=== PATIENT | male | born 1935 | race Caucasian/White ===

== ENCOUNTER 2017-10-23 14:07 | Observation (INO) | payer MEDICARE, SELFPAY ==
[2017-10-23] VITALS (9 sets, daily range): BP systolic 138–168; BP diastolic 71–85; PULSE 53–66; RESP 13–18; TEMP 35.9–36.6; O2SAT 94–96; BMI 28.6; BMI 28.7; BMI 28.1
--- NOTE | 2017-10-23 14:13 | NURSING ---
NO OLD EKGS
--- NOTE | 2017-10-23 15:01 | NURSING ---
NO LW OR POA
--- NOTE | 2017-10-23 15:11 | EKG12_ITS ---
Test Reason : CP Blood Pressure : / mmHG Vent. Rate : 060 BPM Atrial Rate : 060 BPM P-R Int : 194 ms QRS Dur : 098 ms QT Int : 434 ms P-R-T Axes : 019 016 050 degrees QTc Int : 434 ms Normal sinus rhythm Inferior infarct , age undetermined Abnormal ECG Confirmed by RADHA MORILLO MD ([id number]), photographic editor ISMAEL GUEVARA ([id number]) on 10/25/2017 11:45:34 AM Referred By: SAI
--- NOTE | 2017-10-23 15:11 | RAD_ITS ---
STUDY: X-RAY CHEST REASON FOR EXAM: Male, 81 years old. Chest pain and left arm pain. TECHNIQUE: PA and lateral views of the chest. COMPARISON: None. FINDINGS: EKG electrodes are seen. Mild increased markings at the left lung base with blunting of the left costophrenic angle. Mild increased markings at the right lung base as well suggestive of either atelectasis and/or scarring. Sternal cerclage wires and vascular clips are present from a prior sternotomy and coronary artery bypass graft procedure (CABG). Normal mediastinum and cristo. Normal visualized pulmonary arteries. There is atherosclerotic tortuosity of the aortic arch and descending thoracic aorta. There are diffuse degenerative changes of the visualized thoracic spine. Normal visualized ribs, clavicles, and shoulders. Calcified gallstones. RAD/Chest PA and Lateral IMPRESSION: Status post CABG. Increased markings at the lung bases slightly worse on the left side with blunting of the left costophrenic angle. This may represent changes secondary to scarring or basilar atelectasis. Electronically Signed: Parish Haddad MD at 15:58 EDT Tel [phone], Service support ,
[2017-10-23 15:31] LABS: Absolute Lymphocyte Count 2.03 X10^3/ul (0.83-4.51); Absolute Neutrophil Count 3.6 X10^3/uL (2.0-7.7); Basophil# 0.03 X10^3/uL; Basophil% 0.5 % (0-1); Eosinophil# 0.24 X10^3/uL; Eosinophils% 3.7 % (0-5); Hematocrit 41.6 % (40-54); Hemoglobin 13.8 g/dl (13.0-16.5); Lymphocyte # 2.03 X10^3/ul (4.0); Mean Corp Hgb Conc 33.2 g/gl (32-36); Mean Corpuscular Hgb 30.9 pg (27.0-32.0); Mean Corpuscular Volume 93.3 fL (80-94); Mean Platelet Vol. 9.6 fl (6.2-12.0); Monocyte# 0.61 X10^3/uL; Monocyte% 9.3 % (0-10); Neutrophil # 3.63 X10^3/uL (2.7-7.7); Neutrophil % 55.3 % (47-70); Platelet Count 172 K/mm3 (150-450); RBC Distribution Width CV 12.9 % (11.6-14.6); RBC Distribution Width SD 43.1 fl (35.1-43.9); Red Blood Count 4.46 M/mm3 (4.6-6.2); White Blood Count 6.6 K/mm3 (4.4-11.0)
[2017-10-23 15:41] LABS: POSITIVE COUNT NO; POSITIVE DIFFERENTIAL NO; POSITIVE MORPHOLOGY NO
[2017-10-23 15:51] LABS: Anion Gap 5 (5-15); BUN 18 mg/dL (7-18); BUN/Creat Ratio 15.7 RATIO (10-20); Calcium,Total 8.5 mg/dL (8.5-10.1); Chloride 106 mmol/L (98-107); Creatinine, Serum 1.15 mg/dL (0.70-1.30); EST Glomerular Filtration Rate 65 mL/min (>60); Est Glom Filt Rate - Afr Amer 78 mL/min (>60); Glucose 86 mg/dL (74-106); Potassium 4.7 mmol/L (3.5-5.1); Sodium Level 141 mmol/L (136-145)
--- NOTE | 2017-10-23 16:24 | NURSING ---
DR CEJA FOR ER
--- NOTE | 2017-10-23 17:06 | ED.DCSUM_ITS ---
- ER Visit Summary Date of Service: 10/23/17 Chief Complaint: Chest pain History of Present Illness: The patient is a 81 M with a history of coronary artery disease and prior CABG who presents with chest pain. He states began about 2 hours prior to presentation and was a constant substernal pain which she rated a 6 out of 10. He did feel short of breath with this. He was given aspirin and nitroglycerin by EMS with resolution of symptoms and currently has no complaints. Physical Examination: Afebrile vitals are stable Moist mucous membranes Heart regular rate and rhythm Lungs are clear Abdomen soft 2+ radial pulses Extremities are nontender Test Results: EKG shows sinus rhythm at a rate of 60. CBC BMP unremarkable and troponin negative. Chest x-ray shows postsurgical changes and some scarring versus atelectasis but no acute process. Emergency Department Course and Treatment: Patient has remained pain-free here. However given his history of known coronary artery disease with resolution of symptoms with nitroglycerin I do feel he needs a rule out with repeat enzymes and possibly further testing such as stress testing. Patient admitted to the hospitalist service. Treatment Plan: [] Disposition: Admit Impression: Chest pain This note was generated with [employer] dictation software. It may contain incorrect words, spelling, and punctuation that were not noted in review of the chart prior to signing ED Disposition - Plan for ED Patient: Chief Complaint: Chest Pain Referrals: Nieves Lancaster MD [Primary Care Provider] -
--- NOTE | 2017-10-23 17:52 | PCM.HP.STD ---
Problem List (1) Chest pain Status: Acute (2) Seborrheic keratoses Status: Chronic (3) HTN (hypertension) Status: Chronic Qualifiers: Hypertension type: essential hypertension Qualified Code(s): I10 - Essential (primary) hypertension (4) CAD (coronary artery disease) Status: Chronic Qualifiers: Coronary Disease-Associated Artery/Lesion type: bypass graft [place] vs. transplanted heart: [place] heart Associated angina: angina presence unspecified Qualified Code(s): I25.810 - Atherosclerosis of coronary artery bypass graft(s) without angina pectoris (5) Dementia Status: Chronic Qualifiers: Dementia type: unspecified type Dementia behavioral disturbance: without behavioral disturbance Qualified Code(s): F03.90 - Unspecified dementia without behavioral disturbance (6) H/O paroxysmal supraventricular tachycardia Status: Chronic (7) Diverticulosis Status: Chronic Qualifiers: Diverticulosis site: diverticulosis of large intestine (8) Hypercholesterolemia Status: Chronic History of Present Illness Date of Admission: 10/23/17 Chief Complaint: chest pain The patient is a 81 year old M who is in normal state of health up until today where he had left-sided chest pain. The chest pain was similar to when he has had a heart attack in the past. Patient states that the chest pain did not radiate and denies any other symptoms of was reported the patient was short of breath during this time. Patient stated that the symptoms lasted about an hour. He is currently chest pain-free at this time. [] Past Medical History Past Medical History (Chronic Problems): Chronic Problems Seborrheic keratoses (Chronic) HTN (hypertension) (Chronic) CAD (coronary artery disease) (Chronic) Dementia (Chronic) H/O paroxysmal supraventricular tachycardia (Chronic) Diverticulosis (Chronic) Hypercholesterolemia (Chronic) Allergies No Known Allergies Allergy (Verified 10/23/17 14:40) Home Medications: Ambulatory Orders Medication Instructions Recorded Acetaminophen [Tylenol] 325 mg PO Q8H PRN 10/23/17 Amlodipine [Norvasc] 5 mg PO DAILY 10/23/17 Ascorbic Acid [Vitamin C] 500 mg PO DAILY 10/23/17 Aspirin 325 mg PO DAILY 10/23/17 Atenolol 50 mg PO DAILY 10/23/17 Atorvastatin Calcium 20 mg PO QHS 10/23/17 Cholecalciferol (Vitamin D3) 2,000 unit PO DAILY 10/23/17 [Vitamin D3] Citalopram [Celexa] 10 mg PO DAILY 10/23/17 Clopidogrel Bisulfate [Plavix] 75 mg PO DAILY 10/23/17 Donepezil HCl 10 mg PO DAILY 10/23/17 Isosorbide Mononitrate [Isosorbide 60 mg PO BID 10/23/17 Mononitrate ER] Multivitamins,Ther W-Minerals 1 tablet PO DAILY 10/23/17 [Multivitamin With Minerals] Psyllium [Metamucil] 1 packet PO DAILY 10/23/17 Surgical History: coronary bypass surgery, - - 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 Lives: Alone Smoking Status: Former smoker Tobacco Use: Cigarettes - *Family History Maternal History Items: No pertinent history, - Review of Systems Constitutional: Denies: Anorexia, Chills, Fever Eyes: Denies: Blurred vision, Double vision HEENT: Denies: Head Aches, Sinus Congestion, Sinus Drainage Cardiovascular: Denies: Chest Pain, Palpitations Respiratory: Denies: Cough, Shortness of breath at rest, Sputum production Gastrointestinal: Denies: Abdominal Pain, Nausea, Vomiting Genitourinary: Denies: Dysuria Musculoskeletal: Denies: Joint Pain, Joint Tenderness Skin: Denies: Rash, Wounds Neurological: Denies: Numbness, Tingling, Focal weakness Psychiatric: Denies: Anxiety, Depression, Homicidal Ideations, Suicidal Ideations Hematologic/ Lymphatic: Denies: Easy Bruising, Easy Bleeding VTE Information - Inpt Only VTE Present on Admission: No VTE Pharm Prophylaxis ordered?: Yes Patient Problems: Active and Suspected Problems Chest pain (Acute) - Physical Exam General: Alert, Cooperative, No apparent distress HEENT: Atraumatic, Normocephalic Neck: No Nodes, Thyroid Normal Size and Texture Lungs: Clear to auscultation, Normal air movement, No rhonchi, No wheeze Cardiovascular: Regular rate, Regular Rhythm, Normal S1, Normal S2, No murmurs Abdomen: Bowel Sounds Present, Soft, Non Tender, Non-Distended, No Hepato-splenomegaly Extremities: No clubbing, No cyanosis, No edema Skin: No rashes, No breakdown Psych/Mental Status: Normal Affect, Appropriate Vital Signs Temp Pulse Resp BP Pulse Ox 36.6 C 56 L 15 138/75 H 95 10/23/17 14:08 10/23/17 16:28 10/23/17 16:28 10/23/17 16:28 10/23/17 16:28 Oxygen Delivery Method Room Air Weight: 83.007 kg Body Mass Index (BMI) 28.6 Laboratory Tests Past 24 Hrs 10/23/17 10/23/17 14:20 14:20 WBC 6.6 RBC 4.46 L Hgb 13.8 Hct 41.6 MCV 93.3 MCH 30.9 MCHC 33.2 RDW 12.9 RDW Differential 43.1 Plt Count 172 MPV 9.6 Immature Gran % (Auto) 0.200 Neut % (Auto) 55.3 Lymph % (Auto) 31.0 [place] % (Auto) 9.3 Eos % (Auto) 3.7 Baso % (Auto) 0.5 Absolute Neuts (auto) 3.6 Absolute Lymphs (auto) 2.03 Total Counted Not Reportable Sodium 141 Potassium 4.7 Chloride 106 Carbon Dioxide 30.0 Anion Gap 5 BUN 18 Creatinine 1.15 Estim Creat Clear Calc 46.30 Est GFR (MDRD) Af Amer 78 Est GFR (MDRD) Non-Af 65 BUN/Creatinine Ratio 15.7 Glucose 86 Calcium 8.5 Troponin I < 0.02 Assessment/Plan Active and Suspected Problems Chest pain (Acute) 1. Chest pain Rule out cardiac with a stress test. Cycle troponins. Patient has been under stress lately as his patient's had a stroke 6 months ago and is now a phasic. 2. CAD Continue with medications 3. DVT prophylaxis with Lovenox 4. CODE STATUS reviewed and patient is full CODE STATUS. The patient's son at bedside. Code Visit OBSV E&M: 87169 Initial observation care L2
--- NOTE | 2017-10-23 17:54 | NURSING ---
106 OBS CP MARCIAL
--- NOTE | 2017-10-23 17:58 | HP.PCM_ITS ---
Problem List (1) Chest pain Status: Acute (2) Seborrheic keratoses Status: Chronic (3) HTN (hypertension) Status: Chronic Qualifiers: Hypertension type: essential hypertension Qualified Code(s): I10 - Essential (primary) hypertension (4) CAD (coronary artery disease) Status: Chronic Qualifiers: Coronary Disease-Associated Artery/Lesion type: bypass graft [place] vs. transplanted heart: [place] heart Associated angina: angina presence unspecified Qualified Code(s): I25.810 - Atherosclerosis of coronary artery bypass graft(s) without angina pectoris (5) Dementia Status: Chronic Qualifiers: Dementia type: unspecified type Dementia behavioral disturbance: without behavioral disturbance Qualified Code(s): F03.90 - Unspecified dementia without behavioral disturbance (6) H/O paroxysmal supraventricular tachycardia Status: Chronic (7) Diverticulosis Status: Chronic Qualifiers: Diverticulosis site: diverticulosis of large intestine (8) Hypercholesterolemia Status: Chronic History of Present Illness Date of Admission: 10/23/17 Chief Complaint: chest pain The patient is a 81 year old M who is in normal state of health up until today where he had left-sided chest pain. The chest pain was similar to when he has had a heart attack in the past. Patient states that the chest pain did not radiate and denies any other symptoms of was reported the patient was short of breath during this time. Patient stated that the symptoms lasted about an hour. He is currently chest pain-free at this time. [] Past Medical History Past Medical History (Chronic Problems): Chronic Problems Seborrheic keratoses (Chronic) HTN (hypertension) (Chronic) CAD (coronary artery disease) (Chronic) Dementia (Chronic) H/O paroxysmal supraventricular tachycardia (Chronic) Diverticulosis (Chronic) Hypercholesterolemia (Chronic) Allergies No Known Allergies Allergy (Verified 10/23/17 14:40) Home Medications: Ambulatory Orders Medication Instructions Recorded Acetaminophen [Tylenol] 325 mg PO Q8H PRN 10/23/17 Amlodipine [Norvasc] 5 mg PO DAILY 10/23/17 Ascorbic Acid [Vitamin C] 500 mg PO DAILY 10/23/17 Aspirin 325 mg PO DAILY 10/23/17 Atenolol 50 mg PO DAILY 10/23/17 Atorvastatin Calcium 20 mg PO QHS 10/23/17 Cholecalciferol (Vitamin D3) 2,000 unit PO DAILY 10/23/17 [Vitamin D3] Citalopram [Celexa] 10 mg PO DAILY 10/23/17 Clopidogrel Bisulfate [Plavix] 75 mg PO DAILY 10/23/17 Donepezil HCl 10 mg PO DAILY 10/23/17 Isosorbide Mononitrate [Isosorbide 60 mg PO BID 10/23/17 Mononitrate ER] Multivitamins,Ther W-Minerals 1 tablet PO DAILY 10/23/17 [Multivitamin With Minerals] Psyllium [Metamucil] 1 packet PO DAILY 10/23/17 Surgical History: coronary bypass surgery, - - 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 Lives: Alone Smoking Status: Former smoker Tobacco Use: Cigarettes - *Family History Maternal History Items: No pertinent history, - Review of Systems Constitutional: Denies: Anorexia, Chills, Fever Eyes: Denies: Blurred vision, Double vision HEENT: Denies: Head Aches, Sinus Congestion, Sinus Drainage Cardiovascular: Denies: Chest Pain, Palpitations Respiratory: Denies: Cough, Shortness of breath at rest, Sputum production Gastrointestinal: Denies: Abdominal Pain, Nausea, Vomiting Genitourinary: Denies: Dysuria Musculoskeletal: Denies: Joint Pain, Joint Tenderness Skin: Denies: Rash, Wounds Neurological: Denies: Numbness, Tingling, Focal weakness Psychiatric: Denies: Anxiety, Depression, Homicidal Ideations, Suicidal Ideations Hematologic/ Lymphatic: Denies: Easy Bruising, Easy Bleeding VTE Information - Inpt Only VTE Present on Admission: No VTE Pharm Prophylaxis ordered?: Yes Patient Problems: Active and Suspected Problems Chest pain (Acute) - Physical Exam General: Alert, Cooperative, No apparent distress HEENT: Atraumatic, Normocephalic Neck: No Nodes, Thyroid Normal Size and Texture Lungs: Clear to auscultation, Normal air movement, No rhonchi, No wheeze Cardiovascular: Regular rate, Regular Rhythm, Normal S1, Normal S2, No murmurs Abdomen: Bowel Sounds Present, Soft, Non Tender, Non-Distended, No Hepato- splenomegaly Extremities: No clubbing, No cyanosis, No edema Skin: No rashes, No breakdown Psych/Mental Status: Normal Affect, Appropriate Vital Signs Temp Pulse Resp BP Pulse Ox 36.6 C 56 L 15 138/75 H 95 10/23/17 14:08 10/23/17 16:28 10/23/17 16:28 10/23/17 16:28 10/23/17 16:28 Oxygen Delivery Method Room Air Weight: 83.007 kg Body Mass Index (BMI) 28.6 Laboratory Tests Past 24 Hrs 10/23/17 10/23/17 14:20 14:20 WBC 6.6 RBC 4.46 L Hgb 13.8 Hct 41.6 MCV 93.3 MCH 30.9 MCHC 33.2 RDW 12.9 RDW Differential 43.1 Plt Count 172 MPV 9.6 Immature Gran % (Auto) 0.200 Neut % (Auto) 55.3 Lymph % (Auto) 31.0 [place] % (Auto) 9.3 Eos % (Auto) 3.7 Baso % (Auto) 0.5 Absolute Neuts (auto) 3.6 Absolute Lymphs (auto) 2.03 Total Counted Not Reportable Sodium 141 Potassium 4.7 Chloride 106 Carbon Dioxide 30.0 Anion Gap 5 BUN 18 Creatinine 1.15 Estim Creat Clear Calc 46.30 Est GFR (MDRD) Af Amer 78 Est GFR (MDRD) Non-Af 65 BUN/Creatinine Ratio 15.7 Glucose 86 Calcium 8.5 Troponin I < 0.02 Assessment/Plan Active and Suspected Problems Chest pain (Acute) 1. Chest pain * Rule out cardiac with a stress test. Cycle troponins. * Patient has been under stress lately as his patient's had a stroke 6 months ago and is now a phasic. 2. CAD * Continue with medications 3. DVT prophylaxis with Lovenox 4. CODE STATUS reviewed and patient is full CODE STATUS. The patient's son at bedside. Code Visit OBSV E&M: 11259 Initial observation care L2
[2017-10-23] MEDS: Isosorbide Mononitrate 60 MG Tablet PO (21:24)
[2017-10-23] MEDS: Atorvastatin Calcium 20 MG Tablet PO (21:24)
[2017-10-24] VITALS (14 sets, daily range): BP systolic 114–142; BP diastolic 59–75; PULSE 51–62; RESP 16–18; TEMP 35.7–36.5; O2SAT 94–98
[2017-10-24] MEDS: Clopidogrel Bisulfate 75 MG Tablet PO (05:38)
[2017-10-24] MEDS: Aspirin 325 MG Tablet PO (05:40)
[2017-10-24 05:46] LABS: Absolute Lymphocyte Count 1.73 X10^3/ul (0.83-4.51); Absolute Neutrophil Count 2.9 X10^3/uL (2.0-7.7); Basophil# 0.03 X10^3/uL; Basophil% 0.5 % (0-1); Eosinophil# 0.33 X10^3/uL; Eosinophils% 5.9 % (0-5); Hematocrit 40.8 % (40-54); Hemoglobin 13.4 g/dl (13.0-16.5); Lymphocyte # 1.73 X10^3/ul (4.0); Lymphocyte % 30.9 % (19-41); Mean Corp Hgb Conc 32.8 g/gl (32-36); Mean Corpuscular Hgb 30.5 pg (27.0-32.0); Mean Corpuscular Volume 92.7 fL (80-94); Mean Platelet Vol. 9.3 fl (6.2-12.0); Monocyte# 0.57 X10^3/uL; Monocyte% 10.2 % (0-10); Neutrophil # 2.93 X10^3/uL (2.7-7.7); Neutrophil % 52.5 % (47-70); Platelet Count 173 K/mm3 (150-450); RBC Distribution Width CV 12.8 % (11.6-14.6); RBC Distribution Width SD 42.9 fl (35.1-43.9); White Blood Count 5.6 K/mm3 (4.4-11.0)
--- NOTE | 2017-10-24 05:55 | EKG12_ITS ---
Test Reason : AM EKG Blood Pressure : / mmHG Vent. Rate : 061 BPM Atrial Rate : 061 BPM P-R Int : 194 ms QRS Dur : 098 ms QT Int : 436 ms P-R-T Axes : 026 027 044 degrees QTc Int : 438 ms Normal sinus rhythm Normal ECG When compared with ECG of 23-OCT-2017 14:06, MANUAL COMPARISON REQUIRED, DATA IS UNCONFIRMED Confirmed by YISEL CORONADO, RADHA ([id number]), dictionary editor ISMAEL GUEVARA ([id number]) on 10/25/2017 12:44:17 PM Referred By: MARCIAL Confirmed By:RADHA MORILLO MD
[2017-10-24 05:56] LABS: Anion Gap 7 (5-15); BUN 18 mg/dL (7-18); BUN/Creat Ratio 19.5 RATIO (10-20); Calcium,Total 8.5 mg/dL (8.5-10.1); Chloride 106 mmol/L (98-107); Creatinine, Serum 0.92 mg/dL (0.70-1.30); EST Glomerular Filtration Rate 83 mL/min (>60); Est Glom Filt Rate - Afr Amer 101 mL/min (>60); Estimated Creatinine Clearance 57.88 ml/min; Glucose 85 mg/dL (74-106); Sodium Level 142 mmol/L (136-145)
[2017-10-24 06:20] LABS: POSITIVE COUNT NO; POSITIVE DIFFERENTIAL NO; POSITIVE MORPHOLOGY NO
[2017-10-24 06:35] LABS: International Normalized Ratio 1.1; Prothrombin Time (Protime)PT. 14.2 SECONDS (11.7-14.9)
[2017-10-24 06:40] LABS: Partial Thromboplast Time 29.4 Seconds (24.1-36.2)
--- NOTE | 2017-10-24 08:41 | CASEMGMT ---
PRASAD noted patient is from [facility]. Called [facility] and per Emma he is from [facility], their assisted living. PRASAD faxed updates to Kishore at [facility] letting him know if all is ok with stress test it is possible he will be d/c today. Starr MISHRA VP [employer]
[2017-10-24] MEDS: Citalopram 10 MG Tablet PO (09:06)
[2017-10-24] MEDS: Psyllium 1 PACKET PO (09:06)
[2017-10-24] MEDS: Multivitamins,Ther W-Minerals Tablet 1 TABLET PO (09:06)
[2017-10-24] MEDS: Isosorbide Mononitrate 60 MG Tablet PO (09:06)
[2017-10-24] MEDS: Donepezil HCl 10 MG Tablet PO (09:06)
[2017-10-24] MEDS: amLODIPine 5 MG Tablet PO (09:07)
[2017-10-24] MEDS: Atenolol 50 MG Tablet PO (09:07)
[2017-10-24] MEDS: Ascorbic Acid 500 MG Tablet PO (09:07)
--- NOTE | 2017-10-24 09:28 | STRESSREP_ITS ---
Stress Test Report Date: 10/24/2017 Procedure: Pharmacologic stress nuclear imaging study Indications: Chest pain; CAD; CABG Consent: Per the patient Procedure: The patient underwent pharmacologic (Regadenoson) evaluation with a peak heart rate of 95 beats per minute (68% predicted maximal heart rate) and a peak blood pressure of 128/70 mmHg. The baseline ECG demonstrated sinus bradycardia. The peak pharmacologic ECG demonstrated no obvious ECG changes. There were no cardiac dysrhythmias pretest, during pharmacologic infusion, or recovery. There was no complaint of chest discomfort during pharmacologic infusion or recovery. The examination was discontinued secondary to completion of protocol. Impression: 1. Pharmacologic (Regadenoson) evaluation 2. Peak pharmacologic ECG with no obvious ECG changes 3. Nuclear images pending Myocardial perfusion imaging study: Technique: The patient was injected with 11.5 millicuries of technetium 99m Cardiolite and subsequently rest SPECT Cardiolite nuclear imaging was obtained in the horizontal long, vertical long, and short axis views. The patient underwent pharmacologic (Regadenoson) evaluation with a peak heart rate of 95 beats per minute (68% percent predicted maximal heart rate) and a peak blood pressure of 128/70 mmHg. the patient was injected with 34.6 millicuries of technetium 99m Cardiolite and subsequently stress SPECT Cardiolite nuclear imaging was obtained in the horizontal long, vertical long, and short axis views. A gated Cardiolite study at peak stress was obtained. Interpretation: Rest and stress SPECT Cardiolite nuclear imaging status post realignment, normalization, and attenuation correction demonstrate an area of diminished myocardial perfusion/tracer uptake in portions of the basal lateral segments and status post stress in the mid inferolateral segments. There is end systolic thickening and brightening. The gated Cardiolite study demonstrates myocardial thickening and inward wall motion. The reported LVEF is 64%. Impression: 1. Rest and stress SPECT Cardiolite nuclear imaging demonstrated minutes myocardial perfusion/tracer uptake in portions of the basal segments and status post stress in the mid inferolateral segments appearing compatible with an area of previous myocardial injury/infarction involving the basal lateral segments and appearing compatible with an area of stress-induced myocardial ischemia involving the mid inferolateral segments. 2. The gated Cardiolite study reports an LVEF of 64%. This note was generated with [employer] software. It may contain incorrect words, spelling, and punctuation that were not noted in checking the note before signing.
--- NOTE | 2017-10-24 10:43 | PCM.PROGNOTE ---
<Chyna Javed - Last Filed: 10/24/17 10:53> Patient Problems: Active and Suspected Problems Chest pain (Acute) Subjective: Patient seen and examined. Denies further chest pain. Denies shortness of breath, dizziness, palpitations. Patient underwent nuclear stress test this morning which was abnormal. He denied chest pain during stress test. He states he has had CABG in the past, patient is not able to state how long ago this was. Previously followed with Dr. Mccormack. Patient denies other complaints. - Physical Exam General: Alert, Oriented x3, Cooperative, No apparent distress HEENT: Atraumatic, PERRLA, EOMI, Normocephalic Neck: Supple, No JVD, Negative Carotid Bruits Lungs: Clear to auscultation, Normal air movement Cardiovascular: Regular rate, Regular Rhythm, Normal S1, Normal S2, No murmurs Abdomen: Bowel Sounds Present, Soft, Non Tender, Non-Distended Extremities: No clubbing, No cyanosis, No edema, Capillary Refill Less than 3 Seconds Skin: No rashes, No breakdown Musculoskeletal: No Tenderness to Palpation of Joints or Extremities Neurological: Cranial nerves II-XII grossly intact, Neuro grossly intact Psych/Mental Status: Normal Affect, Appropriate Vital Signs Temp Pulse Resp BP Pulse Ox 96.5 F L 62 18 136/72 H 96 10/24/17 09:03 10/24/17 09:14 10/24/17 09:03 10/24/17 09:03 10/24/17 09:03 Oxygen Delivery Method Room Air Weight: 81.5 kg Body Mass Index (BMI) 28.1 Intake and Output for Last 24 Hours 10/22/17 10/23/17 10/24/17 23:59 23:59 23:59 Intake Total 120 / 120 0 / 0 Balance 120 / 120 0 / 0 Laboratory Tests Past 24 Hrs 10/23/17 10/23/17 10/24/17 18:56 21:20 00:22 WBC RBC Hgb Hct MCV MCH MCHC RDW RDW Differential Plt Count MPV Immature Gran % (Auto) Neut % (Auto) Lymph % (Auto) [place] % (Auto) Eos % (Auto) Baso % (Auto) Absolute Neuts (auto) Absolute Lymphs (auto) Total Counted PT INR APTT Sodium Potassium Chloride Carbon Dioxide Anion Gap BUN Creatinine Estim Creat Clear Calc Est GFR (MDRD) Af Amer Est GFR (MDRD) Non-Af BUN/Creatinine Ratio Glucose Calcium Troponin I < 0.02 < 0.02 < 0.02 10/24/17 10/24/17 10/24/17 05:20 05:20 05:20 WBC 5.6 RBC 4.40 L Hgb 13.4 Hct 40.8 MCV 92.7 MCH 30.5 MCHC 32.8 RDW 12.8 RDW Differential 42.9 Plt Count 173 MPV 9.3 Immature Gran % (Auto) 0.000 Neut % (Auto) 52.5 Lymph % (Auto) 30.9 Braxton % (Auto) 10.2 H Eos % (Auto) 5.9 H Baso % (Auto) 0.5 Absolute Neuts (auto) 2.9 Absolute Lymphs (auto) 1.73 Total Counted Not Reportable PT 14.2 INR 1.1 APTT 29.4 Sodium 142 Potassium 4.0 Chloride 106 Carbon Dioxide 29.0 Anion Gap 7 BUN 18 Creatinine 0.92 Estim Creat Clear Calc 57.88 Est GFR (MDRD) Af Amer 101 Est GFR (MDRD) Non-Af 83 BUN/Creatinine Ratio 19.5 Glucose 85 Calcium 8.5 Troponin I Medical Necessity - Tobacco Use Smoking Status: Former smoker Tobacco Use: Cigarettes Assessment/Plan Active and Suspected Problems Chest pain (Acute) 1. Chest pain-troponin negative ?4. Patient underwent nuclear stress test which demonstrated stress-induced ischemia involving the mid inferolateral segments. Cardiology consulted. Continue aspirin, statin, Plavix, isosorbide. 2. Hypertension-stable, continue home regimen of amlodipine, atenolol and isosorbide. 3. CAD-s/p CABG. Continue aspirin, statin, Plavix. 4. Hyperlipidemia-continue statin. 5. Mild cognitive impairment-continue donepezil. 6. Anxiety/depression-continue home Celexa regimen. DVT prophylaxis-Lovenox subcu. This patient was seen by JAYLA Ash under the supervision of Dr. Story. <Talat Story - Last Filed: 10/24/17 14:37> - Physical Exam Vital Signs Temp Pulse Resp BP Pulse Ox 96.5 F L 62 18 136/72 H 96 10/24/17 09:03 10/24/17 09:14 10/24/17 09:03 10/24/17 09:03 10/24/17 09:03 Oxygen Delivery Method Room Air Weight: 81.5 kg Body Mass Index (BMI) 28.1 Intake and Output for Last 24 Hours 10/22/17 10/23/17 10/24/17 23:59 23:59 23:59 Intake Total 120 / 120 180 / 180 Balance 120 / 120 180 / 180 Laboratory Tests Past 24 Hrs 10/23/17 10/23/17 10/24/17 18:56 21:20 00:22 WBC RBC Hgb Hct MCV MCH MCHC RDW RDW Differential Plt Count MPV Immature Gran % (Auto) Neut % (Auto) Lymph % (Auto) Braxton % (Auto) Eos % (Auto) Baso % (Auto) Absolute Neuts (auto) Absolute Lymphs (auto) Total Counted PT INR APTT Sodium Potassium Chloride Carbon Dioxide Anion Gap BUN Creatinine Estim Creat Clear Calc Est GFR (MDRD) Af Amer Est GFR (MDRD) Non-Af BUN/Creatinine Ratio Glucose Calcium Troponin I < 0.02 < 0.02 < 0.02 10/24/17 10/24/17 10/24/17 05:20 05:20 05:20 WBC 5.6 RBC 4.40 L Hgb 13.4 Hct 40.8 MCV 92.7 MCH 30.5 MCHC 32.8 RDW 12.8 RDW Differential 42.9 Plt Count 173 MPV 9.3 Immature Gran % (Auto) 0.000 Neut % (Auto) 52.5 Lymph % (Auto) 30.9 Braxton % (Auto) 10.2 H Eos % (Auto) 5.9 H Baso % (Auto) 0.5 Absolute Neuts (auto) 2.9 Absolute Lymphs (auto) 1.73 Total Counted Not Reportable PT 14.2 INR 1.1 APTT 29.4 Sodium 142 Potassium 4.0 Chloride 106 Carbon Dioxide 29.0 Anion Gap 7 BUN 18 Creatinine 0.92 Estim Creat Clear Calc 57.88 Est GFR (MDRD) Af Amer 101 Est GFR (MDRD) Non-Af 83 BUN/Creatinine Ratio 19.5 Glucose 85 Calcium 8.5 Troponin I Assessment/Plan This patient was seen in conjunction with JAYLA Ash. I have independently interviewed and examined the patient and reviewed pertinent historical, laboratory, and other data. Please refer to JAYLA Ash note for details of this patient's presentation, findings, and recommendations. I have reviewed JAYLA Ash note and concur with documented findings. In brief, Patient is a 81-year-old gentleman who has past medical history significant for CAD status post CABG presented with chest pain. Patient was placed in a monitored bed did rule out [place] with serial cardiac enzymes subsequently underwent a nuclear stress test which was positive for stress-induced ischemia cardiology subsequently consulted Physical Examination: GENERAL: Frail looking HEENT: Clear conjunctiva NECK; supple, normal thyroid, . CHEST: Diminished to auscultation bilaterally, HEART: Regular S1 S2, ABDOMEN: soft, normoactive bowel sounds, RECTAL: deferred FISHER PURSE SEINE: Awake, no lateralizing signs. SKIN: No rash Assessment: 1. Unstable angina: Presented with chest pain stress test came back positive cardiology consulted 2. CAD with previous CABG 3. Mild cognitive impairment 4. Depression with anxiety 5. Dyslipidemia 6. Essential hypertension 7. DVT prophylaxis-Lovenox Code Status: Full code Recommendations: 1. I have discussed the results of my overview and impressions with the patient 2. Options for management were reviewed Code Visit Inpatient E&M: 41094 Subs Hosp L3
--- NOTE | 2017-10-24 10:52 | PN_ITS ---
<Chyna Javed - Last Filed: 10/24/17 10:53> Patient Problems: Active and Suspected Problems Chest pain (Acute) Subjective: Patient seen and examined. Denies further chest pain. Denies shortness of breath, dizziness, palpitations. Patient underwent nuclear stress test this morning which was abnormal. He denied chest pain during stress test. He states he has had CABG in the past, patient is not able to state how long ago this was. Previously followed with Dr. Mccormack. Patient denies other complaints. - Physical Exam General: Alert, Oriented x3, Cooperative, No apparent distress HEENT: Atraumatic, PERRLA, EOMI, Normocephalic Neck: Supple, No JVD, Negative Carotid Bruits Lungs: Clear to auscultation, Normal air movement Cardiovascular: Regular rate, Regular Rhythm, Normal S1, Normal S2, No murmurs Abdomen: Bowel Sounds Present, Soft, Non Tender, Non-Distended Extremities: No clubbing, No cyanosis, No edema, Capillary Refill Less than 3 Seconds Skin: No rashes, No breakdown Musculoskeletal: No Tenderness to Palpation of Joints or Extremities Neurological: Cranial nerves II-XII grossly intact, Neuro grossly intact Psych/Mental Status: Normal Affect, Appropriate Vital Signs Temp Pulse Resp BP Pulse Ox 96.5 F L 62 18 136/72 H 96 10/24/17 09:03 10/24/17 09:14 10/24/17 09:03 10/24/17 09:03 10/24/17 09:03 Oxygen Delivery Method Room Air Weight: 81.5 kg Body Mass Index (BMI) 28.1 Intake and Output for Last 24 Hours 10/22/17 10/23/17 10/24/17 23:59 23:59 23:59 Intake Total 120 / 120 0 / 0 Balance 120 / 120 0 / 0 Laboratory Tests Past 24 Hrs 10/23/17 10/23/17 10/24/17 18:56 21:20 00:22 WBC RBC Hgb Hct MCV MCH MCHC RDW RDW Differential Plt Count MPV Immature Gran % (Auto) Neut % (Auto) Lymph % (Auto) [place] % (Auto) Eos % (Auto) Baso % (Auto) Absolute Neuts (auto) Absolute Lymphs (auto) Total Counted PT INR APTT Sodium Potassium Chloride Carbon Dioxide Anion Gap BUN Creatinine Estim Creat Clear Calc Est GFR (MDRD) Af Amer Est GFR (MDRD) Non-Af BUN/Creatinine Ratio Glucose Calcium Troponin I < 0.02 < 0.02 < 0.02 10/24/17 10/24/17 10/24/17 05:20 05:20 05:20 WBC 5.6 RBC 4.40 L Hgb 13.4 Hct 40.8 MCV 92.7 MCH 30.5 MCHC 32.8 RDW 12.8 RDW Differential 42.9 Plt Count 173 MPV 9.3 Immature Gran % (Auto) 0.000 Neut % (Auto) 52.5 Lymph % (Auto) 30.9 [place] % (Auto) 10.2 H Eos % (Auto) 5.9 H Baso % (Auto) 0.5 Absolute Neuts (auto) 2.9 Absolute Lymphs (auto) 1.73 Total Counted Not Reportable PT 14.2 INR 1.1 APTT 29.4 Sodium 142 Potassium 4.0 Chloride 106 Carbon Dioxide 29.0 Anion Gap 7 BUN 18 Creatinine 0.92 Estim Creat Clear Calc 57.88 Est GFR (MDRD) Af Amer 101 Est GFR (MDRD) Non-Af 83 BUN/Creatinine Ratio 19.5 Glucose 85 Calcium 8.5 Troponin I Medical Necessity - Tobacco Use Smoking Status: Former smoker Tobacco Use: Cigarettes Assessment/Plan Active and Suspected Problems Chest pain (Acute) 1. Chest pain-troponin negative ?4. Patient underwent nuclear stress test which demonstrated stress-induced ischemia involving the mid inferolateral segments. Cardiology consulted. Continue aspirin, statin, Plavix, isosorbide. 2. Hypertension-stable, continue home regimen of amlodipine, atenolol and isosorbide. 3. CAD-s/p CABG. Continue aspirin, statin, Plavix. 4. Hyperlipidemia-continue statin. 5. Mild cognitive impairment-continue donepezil. 6. Anxiety/depression-continue home Celexa regimen. DVT prophylaxis-Lovenox subcu. This patient was seen by JAYLA Ash under the supervision of Dr. Story. <Talat Story - Last Filed: 10/24/17 14:37> - Physical Exam Vital Signs Temp Pulse Resp BP Pulse Ox 96.5 F L 62 18 136/72 H 96 10/24/17 09:03 10/24/17 09:14 10/24/17 09:03 10/24/17 09:03 10/24/17 09:03 Oxygen Delivery Method Room Air Weight: 81.5 kg Body Mass Index (BMI) 28.1 Intake and Output for Last 24 Hours 10/22/17 10/23/17 10/24/17 23:59 23:59 23:59 Intake Total 120 / 120 180 / 180 Balance 120 / 120 180 / 180 Laboratory Tests Past 24 Hrs 10/23/17 10/23/17 10/24/17 18:56 21:20 00:22 WBC RBC Hgb Hct MCV MCH MCHC RDW RDW Differential Plt Count MPV Immature Gran % (Auto) Neut % (Auto) Lymph % (Auto) [place] % (Auto) Eos % (Auto) Baso % (Auto) Absolute Neuts (auto) Absolute Lymphs (auto) Total Counted PT INR APTT Sodium Potassium Chloride Carbon Dioxide Anion Gap BUN Creatinine Estim Creat Clear Calc Est GFR (MDRD) Af Amer Est GFR (MDRD) Non-Af BUN/Creatinine Ratio Glucose Calcium Troponin I < 0.02 < 0.02 < 0.02 10/24/17 10/24/17 10/24/17 05:20 05:20 05:20 WBC 5.6 RBC 4.40 L Hgb 13.4 Hct 40.8 MCV 92.7 MCH 30.5 MCHC 32.8 RDW 12.8 RDW Differential 42.9 Plt Count 173 MPV 9.3 Immature Gran % (Auto) 0.000 Neut % (Auto) 52.5 Lymph % (Auto) 30.9 [place] % (Auto) 10.2 H Eos % (Auto) 5.9 H Baso % (Auto) 0.5 Absolute Neuts (auto) 2.9 Absolute Lymphs (auto) 1.73 Total Counted Not Reportable PT 14.2 INR 1.1 APTT 29.4 Sodium 142 Potassium 4.0 Chloride 106 Carbon Dioxide 29.0 Anion Gap 7 BUN 18 Creatinine 0.92 Estim Creat Clear Calc 57.88 Est GFR (MDRD) Af Amer 101 Est GFR (MDRD) Non-Af 83 BUN/Creatinine Ratio 19.5 Glucose 85 Calcium 8.5 Troponin I Assessment/Plan This patient was seen in conjunction with JAYLA Ash. I have independently interviewed and examined the patient and reviewed pertinent historical, laboratory, and other data. Please refer to VICKY Ash note for details of this patient's presentation, findings, and recommendations. I have reviewed JAYLA Ash note and concur with documented findings. In brief, Patient is a 81-year-old gentleman who has past medical history significant for CAD status post CABG presented with chest pain. Patient was placed in a monitored bed did rule out [place] with serial cardiac enzymes subsequently underwent a nuclear stress test which was positive for stress- induced ischemia cardiology subsequently consulted Physical Examination: GENERAL: Frail looking HEENT: Clear conjunctiva NECK; supple, normal thyroid, . CHEST: Diminished to auscultation bilaterally, HEART: Regular S1 S2, ABDOMEN: soft, normoactive bowel sounds, RECTAL: deferred DRAMA PROFESSOR: Awake, no lateralizing signs. SKIN: No rash Assessment: 1. Unstable angina: Presented with chest pain stress test came back positive cardiology consulted 2. CAD with previous CABG 3. Mild cognitive impairment 4. Depression with anxiety 5. Dyslipidemia 6. Essential hypertension 7. DVT prophylaxis-Lovenox Code Status: Full code Recommendations: 1. I have discussed the results of my overview and impressions with the patient 2. Options for management were reviewed Code Visit Inpatient E&M: 16469 Subs Hosp L3
--- NOTE | 2017-10-24 11:43 | CON.PCM_ITS ---
Problem List (1) Chest pain Status: Acute Reason for Consult Date of Consultation: 10/24/17 History of Present Illness: The patient is a 81 year old M with past medical history significant for coronary artery disease status post percutaneous intervention many years ago. He also has history of hypertension and dyslipidemia. Hard of hearing. Patient presented to the hospital with complaints of left-sided dull chest discomfort that lasted about 10 minutes. The discomfort started spontaneously at rest. He describes some radiation to the left arm. No associated shortness of breath. No diaphoresis. He has had a stress test done in the hospital, atrial suspicion for inferolateral ischemia. Per patient's son, the patient has had about 5 or 6 such episodes over the last 1 year. Denies any angina with exertion. [] Past Medical History Allergies/Adverse Reactions: Allergies No Known Allergies Allergy (Verified 10/23/17 14:40) Home Medications: Ambulatory Orders Medication Instructions Recorded Acetaminophen [Tylenol] 325 mg PO Q8H PRN 10/23/17 Amlodipine [Norvasc] 5 mg PO DAILY 10/23/17 Ascorbic Acid [Vitamin C] 500 mg PO DAILY 10/23/17 Aspirin 325 mg PO DAILY 10/23/17 Atenolol 50 mg PO DAILY 10/23/17 Atorvastatin Calcium 20 mg PO QHS 10/23/17 Cholecalciferol (Vitamin D3) 2,000 unit PO DAILY 10/23/17 [Vitamin D3] Citalopram [Celexa] 10 mg PO DAILY 10/23/17 Clopidogrel Bisulfate [Plavix] 75 mg PO DAILY 10/23/17 Donepezil HCl 10 mg PO QHS 10/23/17 Isosorbide Mononitrate [Isosorbide 60 mg PO BID 10/23/17 Mononitrate ER] Multivitamins,Ther W-Minerals 1 tablet PO DAILY 10/23/17 [Multivitamin With Minerals] Psyllium [Metamucil] 1 packet PO DAILY 10/23/17 Past Medical History (Chronic Problems): Chronic Problems Seborrheic keratoses (Chronic) HTN (hypertension) (Chronic) CAD (coronary artery disease) (Chronic) Dementia (Chronic) H/O paroxysmal supraventricular tachycardia (Chronic) Diverticulosis (Chronic) Hypercholesterolemia (Chronic) Surgical History: coronary bypass surgery, - - 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 - *Family History Maternal History Items: No pertinent history, - Lives: Alone Smoking Status: Former smoker Tobacco Use: Cigarettes Review of Systems - Review of Systems General: Denies: Fever, Fatigue, Chills HEENT: Reports: Hearing Changes - Hard of hearing Cardiovascular: Reports: Chest Discomfort at Rest. Denies: Orthopnea, PND, Syncope Respiratory: Denies: Cough Gastrointestinal: Denies: Indigestion, Jaundice, Nausea, Emesis, Hematemesis, Melena Muscoloskeletal: Denies: Myalgias Neurological: Denies: History of TIA, History of CVA Objective: Vital Signs Temp Pulse Resp BP Pulse Ox 96.5 F L 62 18 136/72 H 96 10/24/17 09:03 10/24/17 09:14 10/24/17 09:03 10/24/17 09:03 10/24/17 09:03 Oxygen Delivery Method Room Air Weight: 81.5 kg Body Mass Index (BMI) 28.1 Intake and Output for Last 24 Hours 10/22/17 10/23/17 10/24/17 23:59 23:59 23:59 Intake Total 120 / 120 0 / 0 Balance 120 / 120 0 / 0 General: Healthy Appearing, Awake, Alert, Oriented x 3 HEENT: Atraumatic, Normocephalic Oral: Moist Mucosa Neck: Supple, No JVD Lungs: Clear to auscultation Cardiovascular: Regular Rhythm, Normal S1, Normal S2 Vascular: No Carotid Bruits Abdomen: Bowel Sounds Present, Soft Extremities: No edema Neurological: No Focal Motor or Sensory Deficit Psych/Mental Status: Appropriate 10/23/17 18:56: Troponin I < 0.02 10/23/17 21:20: Troponin I < 0.02 10/24/17 00:22: Troponin I < 0.02 10/24/17 05:20: WBC 5.6, RBC 4.40 L, Hgb 13.4, Hct 40.8, MCV 92.7, MCH 30.5, MCHC 32.8, RDW 12.8, RDW Differential 42.9, Plt Count 173, MPV 9.3, Immature Gran % (Auto) 0.000, Neut % (Auto) 52.5, Lymph % (Auto) 30.9, [place] % (Auto) 10.2 H, Eos % (Auto) 5.9 H, Baso % (Auto) 0.5, Absolute Neuts (auto) 2.9, Total Counted Not Reportable 10/24/17 05:20: PT 14.2, INR 1.1, APTT 29.4 10/24/17 05:20: Sodium 142, Potassium 4.0, Chloride 106, Carbon Dioxide 29.0, Anion Gap 7, BUN 18, Creatinine 0.92, Est GFR (MDRD) Af Amer 101, Est GFR (MDRD ) Non-Af 83, BUN/Creatinine Ratio 19.5, Glucose 85, Calcium 8.5 Rhythm: Normal sinus rhythm EKG: Normal sinus rhythm. No ischemic changes Assessment/Plan 1. Chest pain. Per patient, chest pain similar to his previous anginal episodes. Consider unstable angina. Stress test positive for inferolateral ischemia. Options discussed with patient. Medical management versus cardiac catheterization with possible revascularization was offered. Risks benefits explained. He understands these and wishes to proceed. Please note that the patient's son who is power of communicable disease specialist is also in agreement with the same. 2. History of CAD in the past. Continue present management for now. Further recommendations after cardiac catheterization 3. Dyslipidemia 4. Hypertension Further recommendations will follow results of cardiac catheterization
[2017-10-24] MEDS: 0.9% NaCl Peripheral Flush Adult/Peds IV (12:05)
--- NOTE | 2017-10-24 12:48 | CASEMGMT ---
If patient requires transfer to a tertiary care center he can go to [facility] [place] in [place], and [facility] in [place]. Starr MISHRA MSW
--- NOTE | 2017-10-24 13:55 | CASEMGMT ---
Addendum entered by Starr Emery 10/24/17 15:19: RN spoke with son and he will transport patient back to [place] when ready. PRASAD faxed d/c instructions to [facility]. Plan: d/c back to [facility]. Family will transport. Starr CLARKE Original Note: Addendum entered by Starr Emery 10/24/17 14:45: PRASAD called Kishore at [facility] back and let him know that patient likely will be d/c back today. PRASAD told him he has to be on bed rest for 2.5 hrs which started at 1420. Therefore he would not return until around or after dinner. Starr CLARKE Original Note: PRASAD received a voice mail from Kishore at [facility]. He was asking how patient's stress test went. PRASAD called him back and left him a voice mail letting him know that patient's stress test was abnormal and he is getting a heart cath. PRASAD told him will let him know more when PRASAD knows more. Starr CLARKE
--- NOTE | 2017-10-24 14:40 | CL.D_ITS ---
Patient Name: BUCK GORE Study Date: 10/24/2017 Performing: Maritza Kaur MD Ht: 67 inches 170 cm : 1935 Wt: 181 lbs 82 kg Age: 81 Gender: male BSA: 1.94 PROCEDURE(S) PERFORMED DT88-FHN/COR/CABG DC11-AO ROOT ANGIO WITH HEART CATH CLINICAL PROFILE AND INDICATIONS Heart Failure: None Stress/Imaging Stress Test w/SPECT MPI: Yes Result: Positive Intermediate RiskStress Test with SP ECT MPI: Positive Intermediate Risk CAD Presentations: Unstable angina. CONCLUSIONS 90% Prox LAD. GOODWIN to LAD patent 100% Mid LCX. SVG to OM 100%. OM2 filling via collaterals from the Ramus. Distal LCX filling via mick aterals from the RPLV 50-60% ostial Ramus. Stent to Prox Ramus patent Stents to Prox and distal RCA patent. SVG to RCA 100% RECOMMENDATIONS Medical therapy DESCRIPTION OF PROCEDURE The patient arrived to the procedure lab. The risks and benefits of the procedure as well as a full d escription of our services here and current unavailability of surgical backup were fully explained to the patient and/or their significant other prior to the catheterization. The Timeout was completed, verifying the correct patient and procedure. The patient's procedural site was prepped and draped in the usual fashion. Local anesthetic was given subcutaneously to right radial region with Lidocaine 2% . Using a modified Seldinger technique, arterial access was obtained via the right radial artery, a 5 Fr sheath was inserted. Left Coronary Artery selective angiography was performed in multiple views u sing a 5 Fr. 4.0 [place] catheter. Left Coronary Artery selective angiography was performed in multiple views using a 5 Fr. JL4 catheter. Right Coronary Artery selective angiography was then performed in multiple views using a 5 Fr. 3DRC (Adrián) catheter. Right Coronary Artery selective angiography wa s then performed in multiple views using a 5 Fr. JR 4 catheter. Left internal mammary artery graft to the LAD selective angiography was performed in multiple views using a 5 Fr. LCB catheter. Left inter nal mammary artery graft to the LAD selective angiography was performed in multiple views using a 4 F r. IM catheter. Saphenous Vein graft to the RCA selective angiography was performed in multiple views using a 5 Fr. AL 1 catheter. Ascending (root) aorta selective angiography was then performed in sing le view using pigtail cath. Ascending (root) aorta selective angiography was then performed in single view using pigtail cath.The arterial sheath was pulled and a TR Band was applied for hemostasis CORONARY ANGIOGRAPHY DOMINANCE: Right Dominant LEFT MAIN: Mild luminal irregularities LEFT ANTERIOR DECENDING ARTERY: PROX LAD: 80-90%. GOODWIN to LAD patent CIRCUMFLEX ARTERY: 100% Mid RAMUS: 60% ostial. Stent to Prox Ramus patent. Mid 50% RIGHT CORONARY ARTERY: Stents to RCA patent. Mid RCA 50% GRAFTS: GOODWIN graft to the LAD is patent Saphenous Vein graft to the 2nd OM is totally occluded Saphenous Vein graft to the RCA is totally occluded Saphenous Vein graft to the 1st Diagonal is totally occluded COLLATERAL FLOW: Collateral flow from Right to Left. OM filling via collaterals from the Right AORTIC ROOT: Angiographically normal. NO SVG filling noted COMPLICATIONS No Complications PROCEDURE MEDICATIONS Fentanyl 25 mcg IV Versed 1 mg IV Oxygen: 2 L/min via nasal cannula Heparin given IA 10/24/2017 13:27:02 Heparin 2000 unit(s) IV 10/24/2017 13:38:23 Verapamil 2.5mg, Ntg 100mcgs, 2000 units of Heparin given IA 10/24/2017 13:27:02 SUMMARY OF HEMODYNAMIC DATA Time AIR REST ECG 13:11:39 AO 121/11 (49) SA 13:30:33 LV 120/12, 23 13:30:48 Signed By Maritza Kaur MD On 10/24/2017 14:39:30 Maritza Kaur MD
--- NOTE | 2017-10-24 14:43 | PN_ITS ---
Progress Note Cardiac catheterization and coronary angiography performed. See cath report for details. Recommend continuing medical treatment. Recommend increasing amlodipine to 5 mg twice daily. May discharge home from cardiac standpoint after radial hemostasis secured. Follow-up with primary health safety specialist as outpatient within a week after discharge
--- NOTE | 2017-10-24 15:08 | PCM.DC ---
- Discharge Diagnoses Current Active Problems: Current Active and Chronic Problems Chest pain (Acute) Seborrheic keratoses (Chronic) HTN (hypertension) (Chronic) CAD (coronary artery disease) (Chronic) Dementia (Chronic) H/O paroxysmal supraventricular tachycardia (Chronic) Diverticulosis (Chronic) Hypercholesterolemia (Chronic) You will use the following diet at home:: Cardiac Discharge Activity: - - Follow post-op cath instructions. Call your doctor if you observe: Shortness of breath, Dizziness, Fainting spells, Chest pain, Increased palpitations (irregular heartbeat) Allergies/Adverse Reactions: Allergies No Known Allergies Allergy (Verified 10/23/17 14:40) Medications to take at Discharge Acetaminophen [Tylenol] 325 mg PO Q8H PRN 10/23/17 Amlodipine [Norvasc] 5 mg PO DAILY 10/23/17 Ascorbic Acid [Vitamin C] 500 mg PO DAILY 10/23/17 Aspirin 325 mg PO DAILY 10/23/17 Atenolol 50 mg PO DAILY 10/23/17 Atorvastatin Calcium 20 mg PO QHS 10/23/17 Cholecalciferol (Vitamin D3) [Vitamin D3] 2,000 unit PO DAILY 10/23/17 Citalopram [Celexa] 10 mg PO DAILY 10/23/17 Clopidogrel Bisulfate [Plavix] 75 mg PO DAILY 10/23/17 Donepezil HCl 10 mg PO QHS 10/23/17 Isosorbide Mononitrate [Isosorbide Mononitrate ER] 60 mg PO BID 10/23/17 Multivitamins,Ther W-Minerals [Multivitamin With Minerals] 1 tablet PO DAILY 10/23/17 Psyllium [Metamucil] 1 packet PO DAILY 10/23/17 Primary Care Physician: Nieves Lancaster MD [Primary Care Provider] - Please follow up with your Primary Care Physician in: 1 Week Please Follow Up With: Head Buyer Tobacco When: 1-2 Weeks Proposed Discharge Date: 10/24/17
--- NOTE | 2017-10-24 15:10 | PCM.DC.SUM ---
<Chyna Javed - Last Filed: 10/24/17 15:20> Discharge Date and Diagnosis Date of Admission: 10/23/17 Date of Discharge: 10/24/17 - Primary Discharge Diagnosis Active and Suspected Problems 1. Chest pain- ACS ruled out. - Secondary Discharge Diagnosis Chronic Problems Seborrheic keratoses (Chronic) HTN (hypertension) (Chronic) CAD (coronary artery disease) (Chronic) Dementia (Chronic) H/O paroxysmal supraventricular tachycardia (Chronic) Diverticulosis (Chronic) Hypercholesterolemia (Chronic) Hospital Course and Treatment Imaging Results: Diagnostic Data Chest X-Ray 10/23/17 15:11 IMPRESSION: Status post CABG. Increased markings at the lung bases slightly worse on the left side with blunting of the left costophrenic angle. This may represent changes secondary to scarring or basilar atelectasis. Electronically Signed: Parish Haddad MD at 15:58 EDT Tel [phone], Service support , Dr. Kaur- Cardiology Operations: None Procedures: Stress test Summary of Care Provided: Patient is an 81-year-old male admitted 10/23/17 due to chest pain. He has a past medical history of hypertension, CAD status post CABG, hyperlipidemia, mild cognitive impairment, anxiety, depression. 1. Chest pain-ACS ruled out. Troponin negative ?4. Patient underwent nuclear stress test which demonstrated stress-induced ischemia involving the mid inferolateral segments. Cardiology consulted. Patient further underwent cardiac catheterization which required no intervention. Recommended continued medical management. Continue aspirin, statin, Plavix, isosorbide. Follow-up with mortgage specialist in 1 week. 2. Hypertension-stable, continue home regimen of amlodipine, atenolol and isosorbide. 3. CAD-s/p CABG. Continue aspirin, statin, Plavix. 4. Hyperlipidemia-continue statin. 5. Mild cognitive impairment-continue donepezil. 6. Anxiety/depression-continue home Celexa regimen. General: Alert, Oriented x3, Cooperative, No apparent distress HEENT: Atraumatic, PERRLA, EOMI, Normocephalic Neck: Supple, No JVD, Negative Carotid Bruits Lungs: Clear to auscultation, Normal air movement Cardiovascular: Regular rate, Regular Rhythm, Normal S1, Normal S2, No murmurs Abdomen: Bowel Sounds Present, Soft, Non Tender, Non-Distended Extremities: No clubbing, No cyanosis, No edema, Capillary Refill Less than 3 Seconds Skin: No rashes, No breakdown Musculoskeletal: No Tenderness to Palpation of Joints or Extremities Neurological: Cranial nerves II-XII grossly intact, Neuro grossly intact Psych/Mental Status: Normal Affect, Appropriate Patient seen and examined prior to discharge. Physical assessment as noted above. Patient is stable for discharge to assisted living facility. This patient was seen by JAYLA Ash under the supervision of Dr. Story. Discharge Diet: Low fat/ Low Cholesterol Discharge Activity: - - Follow post-op cath instructions. Call your doctor if you observe: Shortness of breath, Dizziness, Fainting spells, Chest pain, Increased palpitations (irregular heartbeat) Home Medications: Medications to take at Discharge Acetaminophen [Tylenol] 325 mg PO Q8H PRN 10/23/17 Ascorbic Acid [Vitamin C] 500 mg PO DAILY 10/23/17 Aspirin 325 mg PO DAILY 10/23/17 Atenolol 50 mg PO DAILY 10/23/17 Atorvastatin Calcium 20 mg PO QHS 10/23/17 Cholecalciferol (Vitamin D3) [Vitamin D3] 2,000 unit PO DAILY 10/23/17 Citalopram [Celexa] 10 mg PO DAILY 10/23/17 Clopidogrel Bisulfate [Plavix] 75 mg PO DAILY 10/23/17 Donepezil HCl 10 mg PO QHS 10/23/17 Isosorbide Mononitrate [Isosorbide Mononitrate ER] 60 mg PO BID 10/23/17 Multivitamins,Ther W-Minerals [Multivitamin With Minerals] 1 tablet PO DAILY 10/23/17 Psyllium [Metamucil] 1 packet PO DAILY 10/23/17 Amlodipine [Norvasc] 5 mg PO BID #60 tab 10/24/17 Following Prescrptions Were Given to Patient: Amlodipine [Norvasc] 5 mg PO BID #60 tab Primary Care Physician: Nieves Lancaster MD [Primary Care Provider] - Please follow up with your Primary Care Physician in: 1 Week Please Follow Up With: Commercial Fishing Vessel Operator When: 1-2 Weeks Disposition: [facility]std Living/Non-Skill [facility] Minutes spent on discharge:: 35 Patient Condition:: Stable Medical Necessity - Tobacco Use Smoking Status: Former smoker Tobacco Use: Cigarettes Meaningful Use Info Meaningful Use Diagnoses (Choose all that apply): None applicable <Talat Story - Last Filed: 10/24/17 16:18> Discharge Date and Diagnosis - Secondary Discharge Diagnosis Chronic Problems Seborrheic keratoses (Chronic) HTN (hypertension) (Chronic) CAD (coronary artery disease) (Chronic) Dementia (Chronic) H/O paroxysmal supraventricular tachycardia (Chronic) Diverticulosis (Chronic) Hypercholesterolemia (Chronic) Hospital Course and Treatment Summary of Care Provided: In brief, Patient is a 81-year-old gentleman who has past medical history significant for CAD status post CABG presented with chest pain. Patient was placed in a monitored bed did rule out MT with serial cardiac enzymes subsequently underwent a nuclear stress test which was positive for stress-induced ischemia cardiology subsequently consulted and underwent left heart catheterization on 10/24/2017 which was negative for hemodynamically significant coronary artery disease. Patient was therefore discharged home with optimal medical treatment. Hospital course is as elicited above by Chyna Javed NP Meaningful Use Info Meaningful Use Diagnoses (Choose all that apply): None applicable Code Visit OBSV E&M: 45636 Observation care discharge
--- NOTE | 2017-10-24 15:17 | DS.PCM_ITS ---
<Chyna Javed - Last Filed: 10/24/17 15:20> Discharge Date and Diagnosis Date of Admission: 10/23/17 Date of Discharge: 10/24/17 - Primary Discharge Diagnosis Active and Suspected Problems 1. Chest pain- ACS ruled out. - Secondary Discharge Diagnosis Chronic Problems Seborrheic keratoses (Chronic) HTN (hypertension) (Chronic) CAD (coronary artery disease) (Chronic) Dementia (Chronic) H/O paroxysmal supraventricular tachycardia (Chronic) Diverticulosis (Chronic) Hypercholesterolemia (Chronic) Hospital Course and Treatment Imaging Results: Diagnostic Data Chest X-Ray 10/23/17 15:11 IMPRESSION: Status post CABG. Increased markings at the lung bases slightly worse on the left side with blunting of the left costophrenic angle. This may represent changes secondary to scarring or basilar atelectasis. Electronically Signed: Parish Haddad MD at 15:58 EDT Tel [phone], Service support , Dr. Kaur- Cardiology Operations: None Procedures: Stress test Summary of Care Provided: Patient is an 81-year-old male admitted 10/23/17 due to chest pain. He has a past medical history of hypertension, CAD status post CABG, hyperlipidemia, mild cognitive impairment, anxiety, depression. 1. Chest pain-ACS ruled out. Troponin negative ?4. Patient underwent nuclear stress test which demonstrated stress-induced ischemia involving the mid inferolateral segments. Cardiology consulted. Patient further underwent cardiac catheterization which required no intervention. Recommended continued medical management. Continue aspirin, statin, Plavix, isosorbide. Follow-up with commodity lead in 1 week. 2. Hypertension-stable, continue home regimen of amlodipine, atenolol and isosorbide. 3. CAD-s/p CABG. Continue aspirin, statin, Plavix. 4. Hyperlipidemia-continue statin. 5. Mild cognitive impairment-continue donepezil. 6. Anxiety/depression-continue home Celexa regimen. General: Alert, Oriented x3, Cooperative, No apparent distress HEENT: Atraumatic, PERRLA, EOMI, Normocephalic Neck: Supple, No JVD, Negative Carotid Bruits Lungs: Clear to auscultation, Normal air movement Cardiovascular: Regular rate, Regular Rhythm, Normal S1, Normal S2, No murmurs Abdomen: Bowel Sounds Present, Soft, Non Tender, Non-Distended Extremities: No clubbing, No cyanosis, No edema, Capillary Refill Less than 3 Seconds Skin: No rashes, No breakdown Musculoskeletal: No Tenderness to Palpation of Joints or Extremities Neurological: Cranial nerves II-XII grossly intact, Neuro grossly intact Psych/Mental Status: Normal Affect, Appropriate Patient seen and examined prior to discharge. Physical assessment as noted above. Patient is stable for discharge to assisted living facility. This patient was seen by JAYLA Ash under the supervision of Dr. Story. Discharge Diet: Low fat/ Low Cholesterol Discharge Activity: - - Follow post-op cath instructions. Call your doctor if you observe: Shortness of breath, Dizziness, Fainting spells , Chest pain, Increased palpitations (irregular heartbeat) Home Medications: Medications to take at Discharge Acetaminophen [Tylenol] 325 mg PO Q8H PRN 10/23/17 Ascorbic Acid [Vitamin C] 500 mg PO DAILY 10/23/17 Aspirin 325 mg PO DAILY 10/23/17 Atenolol 50 mg PO DAILY 10/23/17 Atorvastatin Calcium 20 mg PO QHS 10/23/17 Cholecalciferol (Vitamin D3) [Vitamin D3] 2,000 unit PO DAILY 10/23/17 Citalopram [Celexa] 10 mg PO DAILY 10/23/17 Clopidogrel Bisulfate [Plavix] 75 mg PO DAILY 10/23/17 Donepezil HCl 10 mg PO QHS 10/23/17 Isosorbide Mononitrate [Isosorbide Mononitrate ER] 60 mg PO BID 10/23/17 Multivitamins,Ther W-Minerals [Multivitamin With Minerals] 1 tablet PO DAILY 06/01 Psyllium [Metamucil] 1 packet PO DAILY 10/23/17 Amlodipine [Norvasc] 5 mg PO BID #60 tab 10/24/17 Following Prescrptions Were Given to Patient: Amlodipine [Norvasc] 5 mg PO BID #60 tab Primary Care Physician: Nieves Lancaster MD [Primary Care Provider] - Please follow up with your Primary Care Physician in: 1 Week Please Follow Up With: Obgyn Hospitalist Physician When: 1-2 Weeks Disposition: [facility]std Living/Non-Skill NH Minutes spent on discharge:: 35 Patient Condition:: Stable Medical Necessity - Tobacco Use Smoking Status: Former smoker Tobacco Use: Cigarettes Meaningful Use Info Meaningful Use Diagnoses (Choose all that apply): None applicable <Talat Story - Last Filed: 10/24/17 16:18> Discharge Date and Diagnosis - Secondary Discharge Diagnosis Chronic Problems Seborrheic keratoses (Chronic) HTN (hypertension) (Chronic) CAD (coronary artery disease) (Chronic) Dementia (Chronic) H/O paroxysmal supraventricular tachycardia (Chronic) Diverticulosis (Chronic) Hypercholesterolemia (Chronic) Hospital Course and Treatment Summary of Care Provided: In brief, Patient is a 81-year-old gentleman who has past medical history significant for CAD status post CABG presented with chest pain. Patient was placed in a monitored bed did rule out AR with serial cardiac enzymes subsequently underwent a nuclear stress test which was positive for stress- induced ischemia cardiology subsequently consulted and underwent left heart catheterization on 10/24/2017 which was negative for hemodynamically significant coronary artery disease. Patient was therefore discharged home with optimal medical treatment. Hospital course is as elicited above by Chyna Javed NP Meaningful Use Info Meaningful Use Diagnoses (Choose all that apply): None applicable Code Visit OBSV E&M: 28554 Observation care discharge
== END 2017-10-24 15:09 | disposition intermediate care facility (04) ==
LOC: ED 15:25 → PCU 18:11
PROVIDERS: Emergency Provider Emergency Medicine; Family Provider Family Medicine; PCP Family Medicine; Visit Provider Internal Medicine
DX: I25.810 Atherosclerosis of coronary artery bypass graft(s) without angina pectoris (principal); L82.1 Other seborrheic keratosis; I10 Essential (primary) hypertension; F03.90 Unspecified dementia, unspecified severity, without behavioral disturbance, psychotic disturbance, mood disturbance, and anxiety; G31.84 Mild cognitive impairment of uncertain or unknown etiology; E78.5 Hyperlipidemia, unspecified; Z95.1 Presence of aortocoronary bypass graft; Z79.899 Other long term (current) drug therapy; Z79.82 Long term (current) use of aspirin; Z79.02 Long term (current) use of antithrombotics/antiplatelets; Z87.891 Personal history of nicotine dependence; F41.8 Other specified anxiety disorders; H91.90 Unspecified hearing loss, unspecified ear; R94.31 Abnormal electrocardiogram [ECG] [EKG]; R00.1 Bradycardia, unspecified; R94.39 Abnormal result of other cardiovascular function study; Q24.5 Malformation of coronary vessels
CPT/HCPCS: 36415; 71046; 78452; 80048; 84484; 85025; 85610; 85730; 93005; 93017; 93455; 93567; 97802; 99152; 99153; 99218; 99285; A9500; J7030; Q9967; A4216; C1769; C1894; G0378; J2785

== ENCOUNTER 2017-11-01 14:34 | Emergency (ER) | payer MEDICARE, SELFPAY ==
[2017-11-01 14:34] VITALS: BP 122/67; PULSE 60; RESP 16; TEMP 36.5; O2SAT 96; BMI 32.6
--- NOTE | 2017-11-01 15:17 | EKG12_ITS ---
Test Reason : CP Blood Pressure : / mmHG Vent. Rate : 058 BPM Atrial Rate : 058 BPM P-R Int : 188 ms QRS Dur : 098 ms QT Int : 434 ms P-R-T Axes : 028 017 058 degrees QTc Int : 426 ms Sinus bradycardia Otherwise normal ECG Confirmed by JENNIFER CORONADO, RENO ([id number]), manuscript editor ISMAEL GUEVARA ([id number]) on 11/04/2017 2:21:42 PM Referred By: DAVID/LEANNE Confirmed By:RENO RODRIGUEZ MD
--- NOTE | 2017-11-01 15:20 | RAD_ITS ---
STUDY: X-RAY CHEST REASON FOR EXAM: Male, 81 years old. Chest pain. Prior CABG. History of prostate cancer. TECHNIQUE: Single AP portable view of the chest. COMPARISON: Comparison is made with prior study dated October 23, 2017. FINDINGS: EKG electrodes are seen. Improved aeration of the left lung base with residual blunting of the left costophrenic angle. There is no demonstrated pleural abnormality. Sternal cerclage wires and vascular clips are present from a prior sternotomy and coronary artery bypass graft procedure (CABG). Normal mediastinum and cristo. Normal visualized pulmonary arteries. Normal visualized aortic arch and descending thoracic aorta. There are diffuse degenerative changes of the visualized thoracic spine. Normal visualized ribs, clavicles, and shoulders. There is no demonstrated abnormality of the visualized soft tissue structures of the upper abdomen. RAD/Chest 1 View (Portable) IMPRESSION: Residual blunting of the left phrenic angle. There has been improved aeration of the left lung base as compared to prior study. Electronically Signed: Parish Haddad MD at 15:47 EDT Tel [phone], Service support ,
--- NOTE | 2017-11-01 15:33 | ED.DCSUM_ITS ---
- ER Visit Summary Date of Service: 11/01/17 Chief Complaint: Chest pain History of Present Illness: The patient is a 81 M who was getting ready to eat lunch today when he suddenly did not feel well. He states he was nauseated and a little sweaty. He began to have a sharp left-sided chest pain. He has a history of dementia but believes that this is similar to his pain that led to a CABG. Patient was admitted to the hospital on October 23 to the October 24. He had a heart catheterization that required no intervention but recommended medical therapy. Patient states his symptoms are significantly improved but his chest is sore. Physical Examination: Afebrile vital signs are stable Gen: Well-nourished well-developed Head: Normocephalic atraumatic Eyes: Perrl EOMI ENT: TMs clear no rhinorrhea moist mucous membranes Neck: Supple no lymphadenopathy no JVD nontender CVS: Regular rate rhythm no murmurs normal S1-S2 Respiratory: No distress clear to auscultation bilaterally left anterior chest wall is tender to palpation and re-creates the sharp pain that he tells me he felt. Abdomen: Soft nontender nondistended normal bowel sounds no masses Back: Nontender Extremity: Nontender no edema Skin: Normal color no rash Neuro: alert orientated ?3 CN II-XII intact normal strength sensation reflexes gait cerebellar Psych: Normal affect normal mood Test Results: EKG shows a sinus rhythm at a rate of 58 without ectopy. CBC CMP lipase troponin negative. CTA demonstrated no evidence of PE or evidence dissection. Emergency Department Course and Treatment: Patient is asymptomatic other than with reproducible anterior chest wall pain. He tells me this is what [facility] like at the [facility]. Has not been any family appear for me to discuss with. Family did call in during unplanned computer downtime and spoke with nursing. Patient just had a heart catheterization. Patient will follow up an outpatient basis. Impression: 1. Chest wall pain This note was generated with [employer] dictation software. It may contain incorrect words, spelling, and punctuation that were not noted in review of the chart prior to signing ED Disposition - Plan for ED Patient: Disposition: Retirement Facility Chief Complaint: Chest Pain Referrals: Nieves Lancaster MD [Primary Care Provider] -
[2017-11-01 15:37] LABS: Absolute Lymphocyte Count 1.82 X10^3/ul (0.83-4.51); Absolute Neutrophil Count 3.3 X10^3/uL (2.0-7.7); Basophil# 0.03 X10^3/uL; Basophil% 0.5 % (0-1); Eosinophil# 0.33 X10^3/uL; Eosinophils% 5.4 % (0-5); Hematocrit 40.5 % (40-54); Lymphocyte # 1.82 X10^3/ul (4.0); Lymphocyte % 29.8 % (19-41); Mean Corp Hgb Conc 32.1 g/gl (32-36); Mean Corpuscular Hgb 30.1 pg (27.0-32.0); Mean Corpuscular Volume 93.8 fL (80-94); Monocyte# 0.66 X10^3/uL; Monocyte% 10.8 % (0-10); Neutrophil # 3.25 X10^3/uL (2.7-7.7); Neutrophil % 53.2 % (47-70); Platelet Count 172 K/mm3 (150-450); RBC Distribution Width CV 12.9 % (11.6-14.6); RBC Distribution Width SD 43.6 fl (35.1-43.9); Red Blood Count 4.32 M/mm3 (4.6-6.2); White Blood Count 6.1 K/mm3 (4.4-11.0)
[2017-11-01 15:50] LABS: Lipase 130 U/L (73-393)
[2017-11-01 15:51] LABS: POSITIVE COUNT NO; POSITIVE DIFFERENTIAL NO; POSITIVE MORPHOLOGY NO
[2017-11-01 15:52] LABS: Anion Gap 6 (5-15); BUN 16 mg/dL (7-18); BUN/Creat Ratio 13.7 RATIO (10-20); Calcium,Total 8.2 mg/dL (8.5-10.1); Chloride 106 mmol/L (98-107); Creatinine, Serum 1.17 mg/dL (0.70-1.30); EST Glomerular Filtration Rate 63 mL/min (>60); Est Glom Filt Rate - Afr Amer 77 mL/min (>60); Estimated Creatinine Clearance 45.51 ml/min; Glucose 104 mg/dL (74-106); Potassium 4.3 mmol/L (3.5-5.1); Sodium Level 139 mmol/L (136-145)
[2017-11-01 15:53] VITALS: BP 121/69; PULSE 54; RESP 16; O2SAT 95; O2SAT 96
[2017-11-01] MEDS: Ondansetron 4 MG/2 ML Vial IV (15:54)
[2017-11-01] MEDS: Ketorolac 30 MG/ML Syringe 15 MG IV (15:54)
--- NOTE | 2017-11-01 15:57 | CT_ITS ---
STUDY: CTA CHEST REASON FOR EXAM: Male, 81 years old. Chest pain RADIATION DOSAGE (If Supplied By Facility): CTDIvol = ( 17.38 ) mGy, DLP = ( 500.54 ) mGycm TECHNIQUE: The examination was performed with the intravenous administration of 100 ml of Isovue 370 contrast material. Post-processing of the angiographic images was performed, with multiplanar reformation and 3D reconstruction. Individualized dose optimization techniques were used for this CT. COMPARISON: November 01, 2017 chest x-ray FINDINGS: Normal enhancement of the main pulmonary artery and right and left pulmonary arteries. Normal enhancement of the bilateral peripheral pulmonary arteries. There is no demonstrated pulmonary embolism. There is a prominent appearance of the caliber of the bilateral pulmonary arteries which can be associated with pulmonary arterial hypertension. There is atherosclerotic calcification of the aortic arch with tortuosity. There is no demonstrated aortic dissection. There is mild to moderate cardiac enlargement. There is postoperative change status post sternotomy. Normal mediastinum. Normal hilar regions. Normal visualized trachea and bronchi. The lungs are well expanded. There is scattered areas of emphysematous change. Posteriorly in the lungs there is mild pleural thickening and atelectasis. The left lung there is pleural plaquing. Right/ Normal chest wall structures. There are degenerative changes of thoracic spine. There are multiple gallstones in the gallbladder, approximately 5 measuring approximately 9 mm each. There is a small hiatal hernia. This partially visualized mildly distended loop of small bowel in the left upper quadrant. CT/CTA Chest W/WO Contrast IMPRESSION: No evidence of pulmonary embolism. Prominent appearance of the caliber of bilateral pulmonary arteries which raises concern for pulmonary chart hypertension. Scattered emphysema, bilateral lower lobe atelectasis Left-sided pleural plaquing Status post sternotomy mild cardiomegaly Cholelithiasis. Partial visualization of mild distention of loop of small bowel bowel in the left upper quadrant. Small hiatal hernia. Electronically Signed: Jeana Cunningham MD at 17:07 EDT Tel , Service support ,
[2017-11-01 16:01] LABS: AST(SGOT) 17 U/L (15-37); Alanine Aminotransfer ALT/SGPT 22 U/L (16-61); Albumin, Serum 3.5 g/dL (3.2-5.0); Alkaline Phosphatase 98 U/L (45-117); Bilirubin, Direct 0.09 mg/dL (0.00-0.30); Globulin 3.4 g/dL (2.2-4.2); Protein, Total 6.9 g/dL (6.4-8.2)
--- NOTE | 2017-11-02 01:06 | ED.RN ---
see down time charting from [id number]
== END 2017-11-01 19:15 | disposition skilled nursing facility (03) ==
PROVIDERS: Emergency Provider Emergency Medicine; Family Provider Family Medicine; PCP Family Medicine
DX: R07.89 Other chest pain (principal); F03.90 Unspecified dementia, unspecified severity, without behavioral disturbance, psychotic disturbance, mood disturbance, and anxiety; I25.10 Atherosclerotic heart disease of native coronary artery without angina pectoris; Z95.1 Presence of aortocoronary bypass graft; I10 Essential (primary) hypertension; E78.00 Pure hypercholesterolemia, unspecified; Z87.891 Personal history of nicotine dependence
CPT/HCPCS: 71045; 71275; 80048; 80076; 83690; 84484; 85025; 93005; 99283; J7040; Q9967; A4216; J2405

== ENCOUNTER 2018-08-28 01:58 | Emergency (ER) | payer MEDICARE, SELFPAY ==
--- NOTE | 2018-08-28 02:00 | EKG12_ITS ---
Test Reason : CP Blood Pressure : / mmHG Vent. Rate : 062 BPM Atrial Rate : 062 BPM P-R Int : 192 ms QRS Dur : 102 ms QT Int : 442 ms P-R-T Axes : 025 011 037 degrees QTc Int : 448 ms Normal sinus rhythm Normal ECG Confirmed by YISEL CORONADO, RADHA ([id number]), art editor ISMAEL GUEVARA ([id number]) on 09/02/2018 11:37:48 AM Referred By: SAI Confirmed By:RADHA MORILLO MD
[2018-08-28 02:02] VITALS: BP 152/82; PULSE 59; RESP 16; TEMP 37.2; O2SAT 95; BMI 26.6
--- NOTE | 2018-08-28 02:12 | RAD_ITS ---
STUDY: X-RAY CHEST REASON FOR EXAM: Male, 82 years old. Chest pain. TECHNIQUE: PA and lateral views of the chest. COMPARISON: CT of the chest dated November 01, 2017. FINDINGS: Cardiac monitoring leads are present. Patient has had a sternotomy probably for coronary artery bypass graft surgery. The lungs are underexpanded. There is no definite airspace consolidation. There is no demonstrated pleural abnormality. There is mild cardiac enlargement. Normal mediastinum and cristo. Normal visualized pulmonary arteries. There is atherosclerotic calcification of the aortic arch with tortuosity. There is demineralization of the osseous structures. There are degenerative changes of both shoulders. Surgical clips are visible in the epigastric area. RAD/Chest PA and Lateral IMPRESSION: Cardiomegaly and postoperative changes without evidence of acute cardiopulmonary disease. Electronically Signed: Alma Cruz MD at 2:34 EST , Service support ,
[2018-08-28 02:24] LABS: Absolute Lymphocyte Count 2.52 X10^3/ul (0.83-4.51); Absolute Neutrophil Count 4.4 X10^3/uL (2.0-7.7); Basophil# 0.04 X10^3/uL; Basophil% 0.5 % (0-1); Eosinophil# 0.25 X10^3/uL; Eosinophils% 3.1 % (0-5); Hematocrit 42.5 % (40-54); Hemoglobin 13.7 g/dl (13.0-16.5); Lymphocyte # 2.52 X10^3/ul (4.0); Lymphocyte % 31.6 % (19-41); Mean Corp Hgb Conc 32.2 g/gl (32-36); Mean Corpuscular Hgb 29.7 pg (27.0-32.0); Mean Corpuscular Volume 92.2 fL (80-94); Mean Platelet Vol. 9.2 fl (6.2-12.0); Monocyte# 0.73 X10^3/uL; Monocyte% 9.2 % (0-10); Neutrophil # 4.42 X10^3/uL (2.7-7.7); Neutrophil % 55.5 % (47-70); Platelet Count 197 K/mm3 (150-450); RBC Distribution Width CV 12.9 % (11.6-14.6); RBC Distribution Width SD 42.2 fl (35.1-43.9); Red Blood Count 4.61 M/mm3 (4.6-6.2)
[2018-08-28 02:27] LABS: POSITIVE COUNT NO; POSITIVE DIFFERENTIAL NO; POSITIVE MORPHOLOGY NO
[2018-08-28 02:44] LABS: Anion Gap 8 (5-15); BUN 18 mg/dL (7-18); Calcium,Total 8.4 mg/dL (8.5-10.1); Chloride 105 mmol/L (98-107); Creatinine, Serum 1.06 mg/dL (0.70-1.30); EST Glomerular Filtration Rate 71 mL/min (>60); Est Glom Filt Rate - Afr Amer 86 mL/min (>60); Estimated Creatinine Clearance 47.65 ml/min; Glucose 85 mg/dL (74-106); Potassium 3.9 mmol/L (3.5-5.1); Sodium Level 142 mmol/L (136-145)
[2018-08-28 02:51] LABS: Prothrombin Time (Protime)PT. 13.2 SECONDS (11.7-14.9)
--- NOTE | 2018-08-28 02:58 | ED.DEP ---
ED Disposition - Plan for ED Patient: Instructions: ED Chest Pain NonCardiac Referrals: Boyd Collier MD [Primary Care Provider] -
[2018-08-28 03:14] VITALS: BP 145/78; PULSE 60; RESP 18; O2SAT 99
--- NOTE | 2018-08-28 03:14 | NURSING ---
krishan at [facility] report given
--- NOTE | 2018-08-28 06:58 | ED.VISSUMM ---
- ER Visit Summary Date of Service: 08/28/18 Chief Complaint: Chest pain History of Present Illness: The patient is a 82 M who presents with reported chest pain. History is limited due to dementia. Apparently he had a reported chest pain at his nursing facility and to EMS. He now denies that he ever had chest pain. He has no complaints currently. Physical Examination: Afebrile vitals normal Moist mucous membranes Heart regular rate and rhythm Lungs are clear Abdomen soft Alert Test Results: EKG shows normal sinus rhythm at a rate of 62. CBC BMP troponin all normal. INR normal. Chest x-ray shows no acute disease. Emergency Department Course and Treatment: Workup unremarkable. The patient has no complaints at this time. He does not have evidence of acute LA. He had a catheterization last year which required no intervention and medical therapy was recommended. I do not believe the patient requires hospitalization at this point he was discharged back to his nursing facility. Treatment Plan: [] Disposition: Discharge Impression: Chest pain This note was generated with [employer] dictation software. It may contain incorrect words, spelling, and punctuation that were not noted in review of the chart prior to signing ED Disposition - Plan for ED Patient: Disposition: Intermediate Facility Instructions: ED Chest Pain NonCardiac Referrals: Boyd Collier MD [Primary Care Provider] -
--- NOTE | 2018-08-28 07:02 | ED.DCSUM_ITS ---
- ER Visit Summary Date of Service: 08/28/18 Chief Complaint: Chest pain History of Present Illness: The patient is a 82 M who presents with reported chest pain. History is limited due to dementia. Apparently he had a reported chest pain at his nursing facility and to EMS. He now denies that he ever had chest pain. He has no complaints currently. Physical Examination: Afebrile vitals normal Moist mucous membranes Heart regular rate and rhythm Lungs are clear Abdomen soft Alert Test Results: EKG shows normal sinus rhythm at a rate of 62. CBC BMP troponin all normal. INR normal. Chest x-ray shows no acute disease. Emergency Department Course and Treatment: Workup unremarkable. The patient has no complaints at this time. He does not have evidence of acute NV. He had a catheterization last year which required no intervention and medical therapy was recommended. I do not believe the patient requires hospitalization at this point he was discharged back to his nursing facility. Treatment Plan: [] Disposition: Discharge Impression: Chest pain This note was generated with [employer] dictation software. It may contain incorrect words, spelling, and punctuation that were not noted in review of the chart prior to signing ED Disposition - Plan for ED Patient: Disposition: Jail Facility Instructions: ED Chest Pain NonCardiac Referrals: Boyd Coliler MD [Primary Care Provider] -
== END 2018-08-28 03:32 | disposition skilled nursing facility (03) ==
PROVIDERS: Emergency Provider Emergency Medicine; Family Provider Family Medicine; PCP Family Medicine
DX: R07.9 Chest pain, unspecified (principal); F03.90 Unspecified dementia, unspecified severity, without behavioral disturbance, psychotic disturbance, mood disturbance, and anxiety; I25.10 Atherosclerotic heart disease of native coronary artery without angina pectoris; I10 Essential (primary) hypertension; E78.00 Pure hypercholesterolemia, unspecified; E03.9 Hypothyroidism, unspecified; Z95.1 Presence of aortocoronary bypass graft; Z79.82 Long term (current) use of aspirin; Z79.01 Long term (current) use of anticoagulants; Z79.899 Other long term (current) drug therapy
CPT/HCPCS: 71046; 80048; 84484; 85025; 85610; 93005; 99284; J7030; A4216

== ENCOUNTER 2019-01-17 16:20 | Observation (INO) | payer MEDICARE, SELFPAY ==
[2019-01-17] VITALS (12 sets, daily range): BP systolic 123–153; BP diastolic 69–90; PULSE 50–63; RESP 15–21; TEMP 36.5–36.6; O2SAT 95–100; BMI 30.2; BMI 28.5
--- NOTE | 2019-01-17 16:22 | CT_ITS ---
STUDY: CT BRAIN WITHOUT CONTRAST REASON FOR EXAM: Male, 83 years old. LT FACIAL DROOP, SLURRED SPEECH, LT SIDED WEAKNESS RADIATION DOSAGE (If Supplied By Facility): CTDIvol = ( 44.99 ) mGy, DLP = ( 796.11 ) mGycm TECHNIQUE: Transaxial CT imaging of the brain was performed without administration of intravenous contrast material. Individualized dose optimization techniques were used for this CT. COMPARISON: No relevant priors. FINDINGS: Normal soft tissue structures. Normal calvarium. Normal size ventricles and extra-axial spaces for the patient's age. Normal white matter tracts of the cerebral hemispheres. Normal basal ganglia and thalami. Normal brainstem. Normal cerebellum. There is no intracranial hemorrhage. There are no findings of an acute ischemic infarction. Normal visualized paranasal sinuses. CT/Brain/Head without Contrast IMPRESSION: 1. No acute intracranial hemorrhage or mass effect. 2. Age-appropriate central parenchymal volume loss. N.B. : The above information has been verbally conveyed by Marcus Childs MD to Yunier Damico on 01/17/2019 16:34:04 (ET). Electronically Signed: Marcus Childs MD at 16:35 EDT , Service support ,
--- NOTE | 2019-01-17 16:22 | EKG12_ITS ---
Test Reason : STROKE ALERT Blood Pressure : / mmHG Vent. Rate : 058 BPM Atrial Rate : 058 BPM P-R Int : 200 ms QRS Dur : 094 ms QT Int : 448 ms P-R-T Axes : 033 -03 038 degrees QTc Int : 439 ms Sinus bradycardia Otherwise normal ECG Confirmed by YISEL CORONADO, RADHA ([id number]), editor continuity and script CHAU MONCADA ([id number]) on 01/20/2019 1:55:58 PM Referred By: ERIC Confirmed By:RADHA MORILLO MD
--- NOTE | 2019-01-17 16:23 | ED.DCSUM_ITS ---
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 There was reported strokelike symptoms. The patient apparently was found down by his . He was last seen normal about 30 minutes ago. He was barely responsive. On squad arrival, he had a left-sided facial droop and left arm weakness. He also had significant dysarthria. By the time the patient is arrived here, his symptoms are rapidly improving. He does not recall the events. His only current complaint is of pain across his anterior chest. 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 Lives: Spouse/ Significant Other Smoking Status: Former smoker Alcohol: None Drugs: None - Family History Maternal Family History: Reports: No pertinent history, - Review of Systems General: Denies: Chills, Fever, Sweats Eyes: Denies: Visual changes - bilaterally, Diplopia ENT: Denies: Rhinorrhea, Sore throat Cardiovascular: Denies: Chest pain, Palpitations Respiratory: Denies: Dyspnea, Cough, Dyspnea on exertion Gastrointestinal: Denies: Abdominal pain, Nausea, Vomiting, Diarrhea, Melena, Hematochezia Genitourinary: Denies: Dysuria, Hematuria, Frequency Musculoskeletal: Denies: Back pain, Extremity Pain Skin: Denies: Rash, Wounds Neurological: Denies: Headache, Weakness, Numbness Physical Exam Inital Vital Signs reviewed: Yes General: Well nourished, Well developed, No Acute Distress Head: Normocephalic, Atraumatic Eyes: Perrl, EOMI ENT: Moist mucous membranes, No rhinorrhea Neck: Supple, Nontender Cardiovascular: Regular rate, Regular rhythm, No murmurs Respiratory: No distress, CTA bilaterally, Chest nontender Abdomen: Soft, Nontender, Nondistended, Normal bowel sounds Back: Nontender, Normal Inspection Extremities: Nontender, No edema Skin: Normal color, No rash Neurological: Alert, Oriented x3, Cranial nerves II-XII grossly intact, Normal Strength, Normal Sensation Psychological: Normal affect, Normal Mood Diagnostic/Tx/Re-eval Chest X-Ray - ED: 1 View, Normal, Cardiomegaly, No Infiltrates Clinical Impression(s) from Imaging Studies Brain CT 01/17/19 16:22 IMPRESSION: 1. No acute intracranial hemorrhage or mass effect. 2. Age-appropriate central parenchymal volume loss. N.B. : The above information has been verbally conveyed by Marcus Childs MD to Yunier Damico on 01/17/2019 16:34:04 (ET). Electronically Signed: Marcus Childs MD at 16:35 EDT , Service support , ADDENDUM: 01/17/19 1642 IMPRESSION: 1. No acute intracranial hemorrhage or mass effect. 2. Age-appropriate central parenchymal volume loss. N.B. : The above information has been verbally conveyed by Marcus Childs MD to Yunier Damico on 01/17/2019 16:34:04 (ET). Electronically Signed: Marcus Childs MD at 16:35 EDT , Service support , Chest X-Ray 01/17/19 16:24 IMPRESSION: Stable, nonacute portable x-ray examination of the chest. Electronically Signed: Marcus Childs MD at 16:53 EDT , Service support , Abnormal Lab Results 01/17/19 01/17/19 01/17/19 16:34 16:41 16:41 WBC 7.1 RBC 4.51 L Hgb 13.4 Hct 41.3 MCV 91.6 MCH 29.7 MCHC 32.4 RDW 13.1 RDW Differential 43.6 Plt Count 169 MPV 9.2 Immature Gran % (Auto) 0.100 Neut % (Auto) 53.6 Lymph % (Auto) 32.4 [place] % (Auto) 9.6 Eos % (Auto) 3.7 Baso % (Auto) 0.6 Absolute Neuts (auto) 3.8 Absolute Lymphs (auto) 2.30 Total Counted Not Reportable Sodium 138 Potassium 4.2 Chloride 105 Carbon Dioxide 31.0 Anion Gap 2 L BUN 17 Creatinine 1.11 Estim Creat Clear Calc 46.32 Est GFR (MDRD) Af Amer 81 Est GFR (MDRD) Non-Af 67 BUN/Creatinine Ratio 15.3 Glucose 79 Calcium 8.5 Troponin I < 0.015 POC Glucose 82 - Rhythm Strip Rhythm Strip: Sinus Rhythm Rate: 58 Ectopy: None - Medical Decision Making The patient presents to the emergency department with sudden onset left facial droop, dysarthria, left-sided weakness. However, on arrival his symptoms have totally resolved. His NIH was 0. He does not meet criteria for TPA or acute stroke team. EKG was obtained which showed sinus bradycardia without acute ischemia. Head CT was also unremarkable for acute intracranial abnormality. Patient has remained stable without any recurrence of symptoms. Given his age, multiple risk factors, and focal symptoms I do feel that he will benefit from a TIA work-up. The patient was discussed with the hospitalist. ED Disposition - Plan for ED Patient: Disposition: Acute Care Hospital [facility] Diagnosis: TIA (transient ischemic attack) Referrals: Boyd Collier MD [Primary Care Provider] -
--- NOTE | 2019-01-17 16:24 | RAD_ITS ---
STUDY: X-RAY CHEST REASON FOR EXAM: Male, 83 years old. Slurred speech TECHNIQUE: AP COMPARISON: None. FINDINGS: The lungs are clear and expanded. There is no demonstrated pleural abnormality. Normal size heart. Sternal wires and mediastinal surgical clips compatible with prior CABG. Normal visualized pulmonary arteries. There is atherosclerotic calcification of the aortic arch with tortuosity. No acute bony process. There is no demonstrated abnormality of the visualized soft tissue structures of the upper abdomen. RAD/Chest 1 View IMPRESSION: Stable, nonacute portable x-ray examination of the chest. Electronically Signed: Marcus Childs MD at 16:53 EDT , Service support ,
--- NOTE | 2019-01-17 16:29 | NURSING ---
STROKE ALERT CALLED [phone]
[2019-01-17 16:41] LABS: Bedside Glucose 82 mg/dL (70-110)
[2019-01-17] MEDS: 0.9% Normal Saline 1,000 ML 100 ML IV (16:46)
[2019-01-17 16:48] LABS: Absolute Neutrophil Count 3.8 X10^3/uL (2.0-7.7); Basophil# 0.04 X10^3/uL; Basophil% 0.6 % (0-1); Eosinophil# 0.26 X10^3/uL; Eosinophils% 3.7 % (0-5); Hematocrit 41.3 % (40-54); Hemoglobin 13.4 g/dl (13.0-16.5); Lymphocyte % 32.4 % (19-41); Mean Corp Hgb Conc 32.4 g/gl (32-36); Mean Corpuscular Hgb 29.7 pg (27.0-32.0); Mean Corpuscular Volume 91.6 fL (80-94); Mean Platelet Vol. 9.2 fl (6.2-12.0); Monocyte# 0.68 X10^3/uL; Monocyte% 9.6 % (0-10); Neutrophil % 53.6 % (47-70); Platelet Count 169 K/mm3 (150-450); RBC Distribution Width CV 13.1 % (11.6-14.6); RBC Distribution Width SD 43.6 fl (35.1-43.9); Red Blood Count 4.51 M/mm3 (4.6-6.2); White Blood Count 7.1 K/mm3 (4.4-11.0)
[2019-01-17 16:50] LABS: POSITIVE COUNT NO; POSITIVE DIFFERENTIAL NO; POSITIVE MORPHOLOGY NO
[2019-01-17 17:04] LABS: Anion Gap 2 (5-15); BUN 17 mg/dL (7-18); BUN/Creat Ratio 15.3 RATIO (10-20); Calcium,Total 8.5 mg/dL (8.5-10.1); Chloride 105 mmol/L (98-107); Creatinine, Serum 1.11 mg/dL (0.70-1.30); EST Glomerular Filtration Rate 67 mL/min (>60); Est Glom Filt Rate - Afr Amer 81 mL/min (>60); Estimated Creatinine Clearance 46.32 ml/min; Glucose 79 mg/dL (74-106); Potassium 4.2 mmol/L (3.5-5.1); Sodium Level 138 mmol/L (136-145)
--- NOTE | 2019-01-17 17:08 | NURSING ---
DR MARGIE REYES
--- NOTE | 2019-01-17 17:09 | HP.PCM_ITS ---
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 Was admitted through the ED on 01/17/2019 with complaint of strokelike symptoms. Patient states he remembers that he passed out after he got up and was walking. Per ED notes, patient was found down by his and was found to be barely responsive. Patient denies any prodromal symptoms of lightheadedness or dizziness, blurred vision, or palpitations. He denied having any weakness in any extremity and denied any facial droop or numbness or tingling. However, pay ED documentation, after the squad arrived, he was found to have a left-sided facial droop and left arm weakness and also had significant dysarthria. Symptoms has however resolved by the time he got to the ED. Patient does not recall any of this apart from the fact that he fell down. On review of systems, patient complained of pain on the left side of his chest which was reproducible with palpation and could not see when that started. He denied any fever chills, and review of systems was otherwise negative. In the ED, vitals were significant for mild bradycardia with heart rate of 59 and mild tachypnea with respiratory rate of 21. He was saturating well on 2 L of oxygen. CBC and BMP were unremarkable. Chest x-ray showed no acute cardia bony process and CT of the brain was negative for any acute intracranial pathology. He has been admitted to be worked up for TIA.] Past Medical History Past Medical History (Chronic Problems): Chronic Problems Seborrheic keratoses (Chronic) HTN (hypertension) (Chronic) CAD (coronary artery disease) (Chronic) Dementia (Chronic) H/O paroxysmal supraventricular tachycardia (Chronic) Diverticulosis (Chronic) Hypercholesterolemia (Chronic) Allergies No Known Allergies Allergy (Verified 01/17/19 16:29) Home Medications: Ambulatory Orders Medication Instructions Recorded Acetaminophen [Tylenol] 325 mg PO Q8H PRN 10/23/17 Ascorbic Acid [Vitamin C] 500 mg PO DAILY 10/23/17 Aspirin 325 mg PO DAILY 10/23/17 Atenolol 50 mg PO DAILY 10/23/17 Atorvastatin Calcium 20 mg PO QHS 10/23/17 Donepezil HCl 10 mg PO QHS 10/23/17 Isosorbide Mononitrate [Isosorbide 60 mg PO BID 10/23/17 Mononitrate ER] Multivitamins,Ther W-Minerals 1 tablet PO QHS 10/23/17 [Multivitamin With Minerals] Psyllium [Metamucil] 1 packet PO DAILY 10/23/17 Cholecalciferol (Vitamin D3) 2,000 unit PO DAILY 08/28/18 [Vitamin D3] Vit C/E/Zn/Coppr/Lutein/Zeaxan 1 each PO DAILY 08/28/18 [Preservision Areds 2 Softgel] Amlodipine Besylate [Norvasc] 5 mg PO BID 01/17/19 Calcium Carbonate [Tums] 2 tab PO Q2H PRN PRN 01/17/19 Citalopram Hydrobromide 10 mg PO DAILY 01/17/19 [Citalopram HBr] Clopidogrel Bisulfate [Clopidogrel] 75 mg PO DAILY 01/17/19 Omeprazole 20 mg PO DAILY 01/17/19 Surgical History: Surgical History (Last Updated 10/24/17 @ 14:44 by Maritza Kaur MD) S/P CABG x 4 Z95.1 Surgical History: coronary bypass surgery, - - 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 Lives: Spouse/ Significant Other Smoking Status: Former smoker Alcohol: None Drugs: None - *Family History Maternal History Items: No pertinent history, - Review of Systems Constitutional: Denies: Chills, Fever, Malaise, Weakness, Weight Change, Fatigue Eyes: Denies: Blurred vision HEENT: Denies: Head Aches, Sinus Congestion, Sinus Drainage Cardiovascular: Reports: Chest Pain. Denies: Palpitations Respiratory: Denies: Cough, Shortness of Breath, Shortness of breath at rest, Shortness of breath upon exertion, Sputum production Gastrointestinal: Denies: Abdominal Pain, Nausea, Vomiting Genitourinary: Denies: Dysuria Musculoskeletal: Denies: Joint Pain, Joint Tenderness Skin: Denies: Rash, Wounds Neurological: Denies: Numbness, Tingling, Focal weakness Psychiatric: Denies: Anxiety, Depression, Homicidal Ideations, Suicidal Ideati ons Hematologic/ Lymphatic: Denies: Easy Bruising, Easy Bleeding VTE Information - Inpt Only VTE Present on Admission: No VTE Pharm Prophylaxis ordered?: Yes Patient Problems: Active and Suspected Problems TIA (transient ischemic attack) (Acute) - Physical Exam General: Alert, Oriented x3, Cooperative, No apparent distress HEENT: Atraumatic, PERRLA, EOMI, Normocephalic, - - hard of hearing Oral: Dry Mucosa Neck: Supple, No JVD, Negative Carotid Bruits Lungs: Clear to auscultation, Normal air movement Cardiovascular: Regular rate, Regular Rhythm, Normal S1, Normal S2, No murmurs Abdomen: Bowel Sounds Present, Soft, Non Tender, Non-Distended, No Hepato- splenomegaly Extremities: No clubbing, No cyanosis, No edema, Capillary Refill Less than 3 Seconds Skin: No rashes, No breakdown Musculoskeletal: No Tenderness to Palpation of Joints or Extremities Lymphatic: No Cervical, Supraclavicular, or Inguinal Adenopathy Neurological: Cranial nerves II-XII grossly intact, Neuro grossly intact, Motor Exam 5/5 strength throughout, - - NIHSS- 0 Psych/Mental Status: Normal Affect, Appropriate, - - alert and oriented to person, but not to place or time Vital Signs Temp Pulse Resp BP Pulse Ox 97.8 F 58 L 15 135/76 H 99 01/17/19 16:21 01/17/19 16:50 01/17/19 16:50 01/17/19 16:50 01/17/19 16:50 Oxygen Flow Rate (L/min) 2 Oxygen Delivery Method Nasal Cannula Weight: 192 lb 10.944 oz Body Mass Index (BMI) 30.2 Finger Stick Blood Glucose 82 Laboratory Tests Past 24 Hrs 01/17/19 01/17/19 01/17/19 16:41 16:41 16:41 WBC 7.1 RBC 4.51 L Hgb 13.4 Hct 41.3 MCV 91.6 MCH 29.7 MCHC 32.4 RDW 13.1 RDW Differential 43.6 Plt Count 169 MPV 9.2 Immature Gran % (Auto) 0.100 Neut % (Auto) 53.6 Lymph % (Auto) 32.4 [place] % (Auto) 9.6 Eos % (Auto) 3.7 Baso % (Auto) 0.6 Absolute Neuts (auto) 3.8 Absolute Lymphs (auto) 2.30 Total Counted Not Reportable PT Pending INR Pending APTT Pending Sodium 138 Potassium 4.2 Chloride 105 Carbon Dioxide 31.0 Anion Gap 2 L BUN 17 Creatinine 1.11 Estim Creat Clear Calc 46.32 Est GFR (MDRD) Af Amer 81 Est GFR (MDRD) Non-Af 67 BUN/Creatinine Ratio 15.3 Glucose 79 Calcium 8.5 Troponin I < 0.015 POC Glucose 01/17/19 16:34 POC Glucose [address] 01/17/19 16:22 IMPRESSION: 1. No acute intracranial hemorrhage or mass effect. 2. Age-appropriate central parenchymal volume loss. N.B. : The above information has been verbally conveyed by Marcus Childs MD to Yunier Damico on 01/17/2019 16:34:04 (ET). Electronically Signed: Marcus Childs MD at 16:35 EDT , Service support , ADDENDUM: 01/17/19 1642 IMPRESSION: 1. No acute intracranial hemorrhage or mass effect. 2. Age-appropriate central parenchymal volume loss. N.B. : The above information has been verbally conveyed by Marcus Childs MD to Yunier Damico on 01/17/2019 16:34:04 (ET). Electronically Signed: Marcus Childs MD at 16:35 EDT , Service support , Chest X-Ray 01/17/19 16:24 IMPRESSION: Stable, nonacute portable x-ray examination of the chest. Electronically Signed: Marcus Childs MD at 16:53 EDT , Service support , Assessment/Plan All Active Problems TIA (transient ischemic attack) (Acute) Chest pain (Acute) 83 y/o male admitted with a complaint of syncopal episode and left sided facial droop, and left arm weakness 1. Syncopal episode and TIA * symptoms had resolved at time of review. * NIHSS is 0 * EKG showed only mild bradycardia, and acute ST changes * head CT showed no acute intracranial pathology and only showed age appropriate central parenchymal volume loss * Admit to PCU with telemetry * Dysphagia screen. If he passes, will start on diet. * Neurochecks every 4 hours over the next 24 hours * CTA of the head and neck. MRI of the brain without contrast * check orthostatics * fall precautions * PT/OT consult * On aspirin 325 mg daily on account of CAD. Will continue. * 2. Hypertension: on atenolol 50mg daily and amlodipine 5mg bid 3. CAD status post CABG: On statin, aspirin, Plavix and Imdur. 5. Dementia: Donepezil. DVT prophylaxis: Lovenox Code Visit OBSV E&M: [id number] Initial observation care L3
[2019-01-17 17:10] LABS: Prothrombin Time (Protime)PT. 13.4 SECONDS (11.7-14.9)
--- NOTE | 2019-01-17 17:11 | CT_ITS ---
STUDY: CTA OF THE BRAIN REASON FOR EXAM: Male, 83 years old. CVA, left facial droop and slurred speech. Left sided weakness. RADIATION DOSAGE (If Supplied By Facility): CTDIvol = ( 31.99 ) mGy, DLP = ( 732.07 ) mGycm TECHNIQUE: CT angiography was performed with a multi-detector CT scanner. Data acquisition was obtained from the skull base through the vertex following intravenous administration of 100 IV Isovue 370. MIP images were reconstructed from the axial data set. Post-processing of the angiographic images was performed, with multiplanar reformation and 3D reconstruction. Individualized dose optimization techniques were used for this CT. COMPARISON: CT brain January 17, 2019 FINDINGS: Normal bilateral petrous carotid arteries. There is calcified plaque formation of the right cavernous carotid artery, with a mild stenosis (less than 50%). There is calcified plaque formation of the left cavernous carotid artery, with a mild stenosis (less than 50%). Normal right A1 segments of the anterior cerebral artery. Normal left A1 segments of the anterior cerebral artery. Normal intact anterior communicating artery (ACOM). Normal bilateral A2 segments of the anterior cerebral arteries. Normal right M1 and M2 segments of the middle cerebral arteries, with a normal M1 bifurcation. Normal left M1 and M2 segments of the middle cerebral arteries, with a normal M1 bifurcation. There is non-visualization of the right posterior communicating artery (PCOM). There is non-visualization of the left posterior communicating artery (PCOM). Right vertebral artery terminates as the posterior inferior cerebellar artery. Left vertebral artery is dominant. Normal basilar artery with a normal basilar bifurcation. The visualized bilateral superior cerebellar (SCA) arteries are normal. Normal bilateral P1, P2 and visualized P3 segments of the posterior cerebral arteries. There is no demonstrated aneurysm of the [place]. There is no demonstrated abnormality of the visualized brain. CT/CTA Head W/WO Contrast IMPRESSION: Normal [place] without a demonstrated aneurysm or hemodynamically significant stenosis. Electronically Signed: Omar Schmidt MD at 20:03 EDT , Service support ,
--- NOTE | 2019-01-17 17:11 | CT_ITS ---
STUDY: CTA NECK WITH CONTRAST REASON FOR EXAM: Male, 83 years old. Slurred speech and left-sided weakness RADIATION DOSAGE (If Supplied By Facility): CTDIvol = ( 31.99 ) mGy, DLP = ( 732.07 ) mGycm TECHNIQUE: CT angiography with multi-detector data acquisition was performed from the aortic arch to the skull base following intravenous administration of 100 IV Isovue 370. MIP images were reconstructed from the axial data set. Post-processing of the angiographic images was performed, with multiplanar reformation and 3D reconstruction. Individualized dose optimization techniques were used for this CT. COMPARISON: None. FINDINGS: AORTIC ARCH: Normal visualized aortic arch. Normal origins of the brachiocephalic, left common carotid, and left subclavian arteries. RIGHT CAROTID ARTERIES: Normal right common carotid artery (CCA). There is mild atherosclerotic plaque formation with minimal narrowing of the right carotid bulb. Normal origin of the right internal carotid (ICA) artery without a hemodynamically significant stenosis. Normal visualized cervical portion of the right internal carotid artery. Normal origin of the right external carotid artery (ECA). LEFT CAROTID ARTERIES: Normal left common carotid artery (CCA). There is mild atherosclerotic plaque formation with minimal narrowing of the left carotid bulb. Normal origin of the left internal carotid (ICA) artery without a hemodynamically significant stenosis. Normal visualized cervical portion of the left internal carotid artery. Normal origin of the left external carotid artery (ECA). VERTEBRAL ARTERIES: Right vertebral artery terminates as the posterior inferior cerebellar artery. The left vertebral artery is dominant. CT/CTA Neck W/WO Contrast IMPRESSION: Normal bilateral cervical carotid and vertebral arteries. Electronically Signed: Omar Schmidt MD at 20:06 EDT , Service support ,
[2019-01-17] MEDS: Atorvastatin Calcium 20 MG Tablet PO (22:06)
[2019-01-17] MEDS: Donepezil HCl 10 MG Tablet PO (22:06)
[2019-01-17] MEDS: Isosorbide Mononitrate 60 MG Tablet PO (22:06)
[2019-01-17] MEDS: amLODIPine 5 MG Tablet PO (22:06)
[2019-01-17] MEDS: Multivitamins,Ther W-Minerals Tablet 1 TABLET PO (22:06)
[2019-01-18] VITALS (12 sets, daily range): BP systolic 112–139; BP diastolic 60–88; PULSE 49–59; RESP 15–17; TEMP 36.3–36.8; O2SAT 94–96; BMI 28.5
[2019-01-18] MEDS: Enoxaparin 40 MG/0.4 ML Syringe SC (05:12)
[2019-01-18 06:01] LABS: Absolute Neutrophil Count 3.3 X10^3/uL (2.0-7.7); Basophil# 0.02 X10^3/uL; Basophil% 0.3 % (0-1); Eosinophil# 0.23 X10^3/uL; Eosinophils% 3.9 % (0-5); Hematocrit 43.2 % (40-54); Lymphocyte % 30.6 % (19-41); Mean Corp Hgb Conc 32.4 g/gl (32-36); Mean Corpuscular Hgb 29.5 pg (27.0-32.0); Mean Corpuscular Volume 91.1 fL (80-94); Mean Platelet Vol. 9.7 fl (6.2-12.0); Monocyte# 0.58 X10^3/uL; Monocyte% 9.8 % (0-10); Neutrophil # 3.25 X10^3/uL (2.7-7.7); Neutrophil % 55.2 % (47-70); Platelet Count 185 K/mm3 (150-450); RBC Distribution Width CV 13.2 % (11.6-14.6); RBC Distribution Width SD 43.2 fl (35.1-43.9); Red Blood Count 4.74 M/mm3 (4.6-6.2); White Blood Count 5.9 K/mm3 (4.4-11.0)
[2019-01-18 06:30] LABS: Anion Gap 6 (5-15); BUN 15 mg/dL (7-18); BUN/Creat Ratio 14.6 RATIO (10-20); Calcium,Total 8.6 mg/dL (8.5-10.1); Chloride 105 mmol/L (98-107); Cholesterol 119 mg/dL (200); Creatinine, Serum 1.03 mg/dL (0.70-1.30); EST Glomerular Filtration Rate 73 mL/min (>60); Est Glom Filt Rate - Afr Amer 89 mL/min (>60); Estimated Creatinine Clearance 49.91 ml/min; Glucose 85 mg/dL (74-106); High Density Lipoprotein 46 mg/dL; Potassium 4.1 mmol/L (3.5-5.1); Sodium Level 142 mmol/L (136-145); Triglycerides 105 mg/dL; Very Low Density Lipoprotein 21 mg/dL (5-40)
[2019-01-18 06:32] LABS: POSITIVE COUNT NO; POSITIVE DIFFERENTIAL NO; POSITIVE MORPHOLOGY NO
--- NOTE | 2019-01-18 09:18 | ECHOCS_ITS ---
Reason For Study: Syncope Procedure This was a 2D Doppler, Color Flow transthoracic echocardiogram. The study was technically difficult. Contrast injection was performed. Exam performed portable in patient room. Left Ventricle Normal LV size. Left ventricular systolic function is normal. Stage 1 diastolic dysfunction. No regional wall motion abnormalities noted. Right Ventricle Normal RV size. Normal systolic function. Atria Normal left atrium. Normal right atrium. Mitral Valve Normal mitral valve. Tricuspid Valve Normal tricuspid valve. Mild (1+) tricuspid valve insufficiency. Pulmonary artery systolic pressure is 40 mmHg. Aortic Valve The aortic valve is not well visualized. Pulmonic Valve Normal pulmonic valve. Great Vessels Normal aortic root. The pulmonary artery is normal size. Normal inferior vena cava. Pericardium/Pleural No pericardial effusion. Medication Diluted definity 4ml given slow IV push to enhance endocardial definition. MMode/2D Measurements & Calculations LVIDd: 4.9 cm IVSd: 1.2 cm LA dimension: 4.0 cm LVIDs: 3.8 cm LVPWd: 1.1 cm FS: 22.9 % LAV(MOD-bp): 41.4 ml LA A4 area: 18.9 cm2 LAV(MOD-bp) Indexed: 21.3 ml/m2 LAV(MOD-sp2): 38.2 ml LAV(MOD-sp4): 44.2 ml Time Measurements MV dec time: 0.26 sec Doppler Measurements & Calculations MV E max axel: 71.0 cm/sec Lat Peak E' Axel: 7.0 cm/sec Med Peak E' Axel: 7.7 cm/sec MV A max axel: 97.4 cm/sec E/E' lat: 10.1 E/E' med: 9.2 MV E/A: 0.73 MV V2 max: 107.9 cm/sec MV P1/2t max axel: 70.3 cm/sec Ao V2 max: 126.8 cm/sec MV max P.7 mmHg MV P1/2t: 138.2 msec Ao max P.4 mmHg MV V2 mean: 50.9 cm/sec MV dec slope: 149.0 cm/sec2 MV mean P.2 mmHg MV V2 VTI: 30.7 cm MVA(P1/2t): 1.6 cm2 LV V1 max: 76.2 cm/sec PA V2 max: 93.4 cm/sec TR max axel: 299.1 cm/sec LV V1 max P.3 mmHg TR max P.8 mmHg Interpretation Summary Normal LV size. Left ventricular systolic function is normal. Stage 1 diastolic dysfunction. Mild (1+) tricuspid valve insufficiency. Contrast injection was performed. Ordering Physician: Chyna Javed Referring Physician: Boyd Collier Performed By: Willy Hernandez RCS
--- NOTE | 2019-01-18 10:00 | MRI_ITS ---
STUDY: MRI BRAIN WITHOUT CONTRAST REASON FOR EXAM: Male, 83 years old. Facial droop. TECHNIQUE: Standardized multiplanar fat and water weighted pulse sequences were obtained. COMPARISON: [address] head FINDINGS: There is severe cerebral atrophy with widening of the extra-axial spaces and ventricular dilatation. There are multiple white matter hyperintensities, distributed throughout the deep white matter tracts of the cerebral hemispheres, consistent with moderate chronic white matter ischemic changes. There is no evidence for recent intracranial ischemia or other cause of cytotoxic edema on diffusion weighted imaging (DWI). Normal T2* images of the brain without demonstrated susceptibility artifact. There is no demonstrated hemosiderin stain. Normal bilateral basal ganglia. Normal thalami. There is no extra-axial fluid accumulation. Normal flow voids within the major intracranial circulation suggesting patency by spin echo criteria. Normal sella turcica, pituitary gland, infundibular stalk, optic chiasm and hypothalamus. Normal tectal plate and pineal gland. Normal midbrain, anshu and medulla. Normal cerebellum. Normal basal cisterns. Normal bilateral temporal bones. Normal bilateral internal auditory canals. No demonstrated orbital abnormality, within the constraints of a routine brain study. Normal visualized paranasal sinuses. Normal calvarium and skull base. Normal visualized soft tissue structures. Normal visualized upper cervical spine. MRI/Brain without Contrast IMPRESSION: Senescent changes with no evidence of acute intracranial bleed, mass or ischemia. Electronically Signed: Tod Garcia DO at 11:53 EDT , Service support ,
--- NOTE | 2019-01-18 11:15 | PCM.PROGNOTE ---
<Chyna Javed - Last Filed: 01/18/19 11:26> Patient Problems: Active and Suspected Problems TIA (transient ischemic attack) (Acute) Subjective: Patient seen and examined. Pleasantly confused. Unable to explain events which brought him into the hospital. Denies focal weakness, slurred speech, vision changes. Denies dizziness, lightheadedness. - Physical Exam General: Alert, Cooperative, No apparent distress, Confused HEENT: Atraumatic, PERRLA, EOMI, Normocephalic Neck: Supple, No JVD, Negative Carotid Bruits Lungs: Clear to auscultation, Normal air movement Cardiovascular: Regular Rhythm, Normal S1, Normal S2, No murmurs, Bradycardic Abdomen: Bowel Sounds Present, Soft, Non Tender, Non-Distended Extremities: No clubbing, No cyanosis, No edema, Capillary Refill Less than 3 Seconds Skin: No rashes, No breakdown Musculoskeletal: No Tenderness to Palpation of Joints or Extremities Neurological: Cranial nerves II-XII grossly intact, Neuro grossly intact Psych/Mental Status: Normal Affect, Appropriate Vital Signs Temp Pulse Resp BP Pulse Ox 97.7 F L 58 L 17 118/62 95 01/18/19 09:20 01/18/19 09:20 01/18/19 09:20 01/18/19 09:20 01/18/19 09:20 Oxygen Flow Rate (L/min) 2 Oxygen Delivery Method Room Air Weight: 181 lb 14.102 oz Body Mass Index (BMI) 28.5 Finger Stick Blood Glucose 82 Orthostatic Vital Signs Start: 01/18/19 05:51 Freq: q24h Status: Active Protocol: Activity Type Activity Date Activity User E-Sign Co-Sign Detail Recorded Client Recorded Date Recorded By Document 01/18/19 05:20 [facility] [id number] 01/18/19 05:51 [facility] 01/18/19 05:20 Orthostatic Vitals Standing -Blood Pressure (90/60-120/80) 136/65 H -Extremity Use Right Arm -Pulse Rate (60-100) 56 L Sitting -Blood Pressure (90/60-120/80) 137/68 H -Extremity Use Right Arm -Pulse Rate (60-100) 57 L Lying -Blood Pressure (90/60-120/80) 123/69 H -Extremity Use Right Arm -Pulse Rate (60-100) 56 L Intake and Output for Last 24 Hours 01/16/19 01/17/19 01/18/19 23:59 23:59 23:59 Intake Total 483 / 483 240 / 240 Output Total 400 / 400 900 / 900 Balance 83 / 83 -660 / -660 Laboratory Tests Past 24 Hrs 01/17/19 01/17/19 01/17/19 16:41 16:41 16:41 WBC 7.1 RBC 4.51 L Hgb 13.4 Hct 41.3 MCV 91.6 MCH 29.7 MCHC 32.4 RDW 13.1 RDW Differential 43.6 Plt Count 169 MPV 9.2 Immature Gran % (Auto) 0.100 Neut % (Auto) 53.6 Lymph % (Auto) 32.4 Kenedy % (Auto) 9.6 Eos % (Auto) 3.7 Baso % (Auto) 0.6 Absolute Neuts (auto) 3.8 Absolute Lymphs (auto) 2.30 Total Counted Not Reportable PT 13.4 INR 1.0 APTT 28.0 Sodium 138 Potassium 4.2 Chloride 105 Carbon Dioxide 31.0 Anion Gap 2 L BUN 17 Creatinine 1.11 Estim Creat Clear Calc 46.32 Est GFR (MDRD) Af Amer 81 Est GFR (MDRD) Non-Af 67 BUN/Creatinine Ratio 15.3 Glucose 79 Calcium 8.5 Troponin I < 0.015 Triglycerides Cholesterol LDL Cholesterol VLDL Cholesterol HDL Cholesterol 01/17/19 01/18/19 01/18/19 19:10 05:15 05:15 WBC 5.9 RBC 4.74 Hgb 14.0 Hct 43.2 MCV 91.1 MCH 29.5 MCHC 32.4 RDW 13.2 RDW Differential 43.2 Plt Count 185 MPV 9.7 Immature Gran % (Auto) 0.200 Neut % (Auto) 55.2 Lymph % (Auto) 30.6 Kenedy % (Auto) 9.8 Eos % (Auto) 3.9 Baso % (Auto) 0.3 Absolute Neuts (auto) 3.3 Absolute Lymphs (auto) 1.80 Total Counted Not Reportable PT INR APTT Sodium 142 Potassium 4.1 Chloride 105 Carbon Dioxide 31.0 Anion Gap 6 BUN 15 Creatinine 1.03 Estim Creat Clear Calc 49.91 Est GFR (MDRD) Af Amer 89 Est GFR (MDRD) Non-Af 73 BUN/Creatinine Ratio 14.6 Glucose 85 Calcium 8.6 Troponin I < 0.015 Triglycerides 105 Cholesterol 119 LDL Cholesterol 52 VLDL Cholesterol 21 HDL Cholesterol 46 POC Glucose 01/17/19 16:34 POC Glucose 82 Medical Necessity - Tobacco Use Smoking Status: Former smoker Assessment/Plan All Active Problems TIA (transient ischemic attack) (Acute) Chest pain (Acute) 1. Syncope-orthostatic vitals negative. Troponin negative. EKG without acute ischemia. Lab work unremarkable. Obtain echocardiogram. PT/OT. 2. Possible TIA-patient was found to have left-sided facial droop and left arm weakness as well as dysarthria per EMS. However, the symptoms resolved by the time patient arrived to the emergency department. He has not had further neuro symptoms during admission. Brain CT shows no acute hemorrhage or mass. Neck CTA shows normal cervical carotid and vertebral arteries. MRI of brain pending. Continue aspirin, statin, Plavix. PT/OT/ST. 3. Hypertension-stable, continue home regimen of amlodipine, atenolol and isosorbide. 4. CAD-s/p CABG. Continue aspirin, statin, Plavix. 5. Hyperlipidemia-continue statin. 6. Dementia-continue donepezil. 7. Anxiety/depression-continue home Celexa regimen. DVT prophylaxis-Lovenox subcu Discharge planning: Return to assisted living, follow PT evaluation. Lives with at assisted living facility. This patient was seen by JAYLA Ash under the supervision of Dr. Story. <Talat Story - Last Filed: 01/18/19 12:51> - Physical Exam Vital Signs Temp Pulse Resp BP Pulse Ox 97.6 F L 53 L 17 124/60 H 96 01/18/19 12:19 01/18/19 12:19 01/18/19 12:19 01/18/19 12:19 01/18/19 12:19 Oxygen Flow Rate (L/min) 2 Oxygen Delivery Method Room Air Weight: 82.5 kg Body Mass Index (BMI) 28.5 Finger Stick Blood Glucose 82 Orthostatic Vital Signs Start: 01/18/19 05:51 Freq: q24h Status: Active Protocol: Activity Type Activity Date Activity User E-Sign Co-Sign Detail Recorded Client Recorded Date Recorded By Document 01/18/19 05:20 [facility] [id number] 01/18/19 05:51 [facility] 01/18/19 05:20 Orthostatic Vitals Standing -Blood Pressure (90/60-120/80) 136/65 H -Extremity Use Right Arm -Pulse Rate (60-100) 56 L Sitting -Blood Pressure (90/60-120/80) 137/68 H -Extremity Use Right Arm -Pulse Rate (60-100) 57 L Lying -Blood Pressure (90/60-120/80) 123/69 H -Extremity Use Right Arm -Pulse Rate (60-100) 56 L Intake and Output for Last 24 Hours 01/16/19 01/17/19 01/18/19 23:59 23:59 23:59 Intake Total 483 / 483 799 / 799 Output Total 400 / 400 900 / 900 Balance 83 / 83 -101 / -101 Laboratory Tests Past 24 Hrs 01/17/19 01/17/19 01/17/19 16:41 16:41 16:41 WBC 7.1 RBC 4.51 L Hgb 13.4 Hct 41.3 MCV 91.6 MCH 29.7 MCHC 32.4 RDW 13.1 RDW Differential 43.6 Plt Count 169 MPV 9.2 Immature Gran % (Auto) 0.100 Neut % (Auto) 53.6 Lymph % (Auto) 32.4 Kenedy % (Auto) 9.6 Eos % (Auto) 3.7 Baso % (Auto) 0.6 Absolute Neuts (auto) 3.8 Absolute Lymphs (auto) 2.30 Total Counted Not Reportable PT 13.4 INR 1.0 APTT 28.0 Sodium 138 Potassium 4.2 Chloride 105 Carbon Dioxide 31.0 Anion Gap 2 L BUN 17 Creatinine 1.11 Estim Creat Clear Calc 46.32 Est GFR (MDRD) Af Amer 81 Est GFR (MDRD) Non-Af 67 BUN/Creatinine Ratio 15.3 Glucose 79 Calcium 8.5 Troponin I < 0.015 Triglycerides Cholesterol LDL Cholesterol VLDL Cholesterol HDL Cholesterol 01/17/19 01/18/19 01/18/19 19:10 05:15 05:15 WBC 5.9 RBC 4.74 Hgb 14.0 Hct 43.2 MCV 91.1 MCH 29.5 MCHC 32.4 RDW 13.2 RDW Differential 43.2 Plt Count 185 MPV 9.7 Immature Gran % (Auto) 0.200 Neut % (Auto) 55.2 Lymph % (Auto) 30.6 Kenedy % (Auto) 9.8 Eos % (Auto) 3.9 Baso % (Auto) 0.3 Absolute Neuts (auto) 3.3 Absolute Lymphs (auto) 1.80 Total Counted Not Reportable PT INR APTT Sodium 142 Potassium 4.1 Chloride 105 Carbon Dioxide 31.0 Anion Gap 6 BUN 15 Creatinine 1.03 Estim Creat Clear Calc 49.91 Est GFR (MDRD) Af Amer 89 Est GFR (MDRD) Non-Af 73 BUN/Creatinine Ratio 14.6 Glucose 85 Calcium 8.6 Troponin I < 0.015 Triglycerides 105 Cholesterol 119 LDL Cholesterol 52 VLDL Cholesterol 21 HDL Cholesterol 46 POC Glucose 01/17/19 16:34 POC Glucose 82 Assessment/Plan This patient was seen in conjunction with JAYLA Ash . I have independently interviewed and examined the patient and reviewed pertinent historical, laboratory, and other data. Please refer to JAYLA Ash note for details of this patient's presentation, findings, and recommendations. I have reviewed JAYLA Ash note and concur with documented findings. In brief, patient is a 83-year-old gentleman admitted with left-sided numbness, weakness, facial droop as well as dysarthria and passing out Physical Examination: GENERAL: cooperative HEENT: Atraumatic; EYES; Anicteric, NECK; supple, normal thyroid, . RESPIRATORY: Diminished to auscultation CARDIOVASCULAR: Regular S1 S2, GI: soft, non-tender, normoactive bowel sounds, NEURO: Awake; no lateralizing signs. SKIN: No Rash PSYCH; Normal affect Assessment: 1. Syncopal episode 2. TIA 3. Essential hypertension 4. Coronary artery disease with previous CABG 5. CAD with previous CABG 6. Depression with anxiety Advance planning; did discuss with the patient and family regarding advanced directives as well as CODE STATUS. Did explain the various scenarios involved ( FULL CODE, DNR CCA, DNR CCA with no intubation, and DNR CC and what each meant) patient elected to remain full code (patient states that he has family members who lived up to be 100. Order was placed. Time spent on discussion 18 minutes. Recommendations: 1. I have discussed the results of my overview and impressions with the patient 2. Options for management were reviewed Code Visit OBSV E&M: 65691 Subsequent observation care L3 Procedures: 84076 Advncd Care Plan 30 Min
[2019-01-18] MEDS: Aspirin 325 MG Tablet PO (12:29)
[2019-01-18] MEDS: amLODIPine 5 MG Tablet PO ×2 (12:30→21:07)
[2019-01-18] MEDS: Pantoprazole Sodium 20 MG Tablet PO (12:30)
[2019-01-18] MEDS: Psyllium 1 PACKET PO (12:30)
[2019-01-18] MEDS: Multivitamins,Ther W-Minerals Tablet 1 TABLET PO ×2 (12:30→21:07)
[2019-01-18] MEDS: Clopidogrel Bisulfate 75 MG Tablet PO (12:30)
[2019-01-18] MEDS: Isosorbide Mononitrate 60 MG Tablet PO ×2 (12:30→21:07)
[2019-01-18] MEDS: Citalopram 10 MG Tablet PO (12:30)
[2019-01-18] MEDS: Ascorbic Acid 500 MG Tablet PO (12:31)
[2019-01-18] MEDS: Atenolol 50 MG Tablet PO (12:31)
[2019-01-18] MEDS: 0.9% NaCl Peripheral Flush Adult/Peds IV (18:36)
[2019-01-18] MEDS: Atorvastatin Calcium 20 MG Tablet PO (21:07)
[2019-01-18] MEDS: Donepezil HCl 10 MG Tablet PO (21:07)
[2019-01-19] VITALS (13 sets, daily range): BP systolic 121–153; BP diastolic 63–77; PULSE 51–67; RESP 16–18; TEMP 36.5–36.7; O2SAT 93–97; BMI 28.5
[2019-01-19] MEDS: Acetaminophen 325 MG Tablet PO ×2 (02:54→12:20)
[2019-01-19] MEDS: Enoxaparin 40 MG/0.4 ML Syringe SC (05:47)
--- NOTE | 2019-01-19 08:45 | CASEMGMT ---
PHQ-9 not completed as pt has dementia at baseline. Pt is from [facility] and it is anticipated pt will return there at discharge. SUZANNE Jhaveri
--- NOTE | 2019-01-19 08:49 | CASEMGMT ---
As per floor covering installer, pt's son Giacomo Vargas is POA, papers not on chart, assessment indicated pt would bring them in. SUZANNE Jhaveri
[2019-01-19] MEDS: Citalopram 10 MG Tablet PO (09:04)
[2019-01-19] MEDS: Clopidogrel Bisulfate 75 MG Tablet PO (09:04)
[2019-01-19] MEDS: amLODIPine 5 MG Tablet PO ×2 (09:04→21:13)
[2019-01-19] MEDS: Ascorbic Acid 500 MG Tablet PO (09:04)
[2019-01-19] MEDS: Pantoprazole Sodium 20 MG Tablet PO (09:04)
[2019-01-19] MEDS: Isosorbide Mononitrate 60 MG Tablet PO ×2 (09:04→21:13)
[2019-01-19] MEDS: Atenolol 50 MG Tablet PO (09:04)
[2019-01-19] MEDS: Multivitamins,Ther W-Minerals Tablet 1 TABLET PO ×2 (09:05→21:13)
[2019-01-19] MEDS: Psyllium 1 PACKET PO (09:05)
[2019-01-19] MEDS: Aspirin 325 MG Tablet PO (09:05)
--- NOTE | 2019-01-19 09:22 | NURSING ---
Cathleen Lamb LPN's assessment reviewed and this nurse is in agreement with assessment
--- NOTE | 2019-01-19 12:39 | CASEMGMT ---
Addendum entered by Stefani Garcia 01/19/19 14:01: SW asked son how pt was getting around prior to this hospitalization. He states pt used a cane but his mobility has declined recently. He reports pt to still be independent with ADL's. SUZANNE Jhaveri Original Note: SW reviewed chart, pt is here from [facility]. SW spoke w/pt, pt is somewhat confused but did confirm is from [facility]. Pt told this SW that his is also in the hospital somewhere(she is not). SW called Kishore at [facility], message left and SW faxed clinical information. SW spoke AUTOMATIC PATTERN EDGER covering pt today, pt is an assist of two. SW spoke w/PT and OT, they will see pt today. SW called pt's son, Giacomo. SW confirmed w/son pt is at the [facility], and stays there with his . SW explained that PT and OT are pending, but pt may not be able to return to the assisted living if he is not moving well enough. Son in agreement w/pt going to the skilled side if needed, if he cannot return safely to [facility]. He states pt lives w/his at the [facility] and she is not able to help pt at all, she has her own health issues and is frail. He states pt's has been to the skilled side at [facility] in the past. SW explained that once pt has PT/OT, will send over to Kishore at [facility] for him to decide if pt can safely return to [facility] or if pt will need some time in the skilled unit. SW explained that if pt needs time in the skilled unit SW will go to [facility] for precert. Son states understanding and in agreement w/plan, [facility] vs SNF for skilled time. SUZANNE Jhaveri
--- NOTE | 2019-01-19 14:00 | CASEMGMT ---
Pt has dementia and not able to sign MCMILLAN form at this time. This KIMBERLY ELIAS spoke with pt's son/HPOA, Giacomo Vargas, via phone and son verbally consented to sign MCMILLAN form via phone at this time. Original to chart and copy placed in pt belonging bag per son's request at this time. Son voices no further questions/concerns/needs at this time. SStaten KIMBERLY ELIAS
--- NOTE | 2019-01-19 14:02 | CASEMGMT ---
PRASAD spoke w/PT and OT, though pt walked 320 feet, he is unsteady and needed the assist of one person. They recommend pt go to SNF at discharge. PRASAD called Taylor at [facility], reviewed therapy notes w/her, she states will authorize pt to go to the senior care for 7-10 days, and then pt can go back to the assisted living with therapy through part B. PRASAD faxed referral and called Lilly at [facility], and explained that therapy is recommending pt go to SNF at discharge. She states that they are in agreement with this, can take pt. PRASAD let Lilly know that [facility] did already authorize pt go come. PRASAD completed PAS/RR, placed a copy of PAS/RR with results in chart and envelope to go to [facility]. PRASAD texted physician and let him know pt can be discharged to SNF today. PRASAD called son, let him know therapy is recommending pt go to SNF at discharge, and that insurance did authorize it initially, will likely authorize for 7-10 days. Son in agreement w/pt going to SNF and pt staying as long as insurance authorizes. He is also in agreement w/having pt go via ambulance to the senior care. PRASAD explained that PRASAD or other staff will call him back once pt is discharged and set up to go. PRASAD texted physician and let him know pt can be discharged to [facility] SNF today. PRASAD will continue to follow, will place green sheet on chart if needed for discharge, should physician not discharge pt while SW is here. SUZANNE Jhaveri
--- NOTE | 2019-01-19 16:55 | RAD_ITS ---
STUDY: X-RAY - ABDOMEN/PELVIS REASON FOR EXAM: Male, 83 years old. Abdominal distention. Pain. TECHNIQUE: Single AP view of the abdomen / pelvis. COMPARISON: None. FINDINGS: Normal visualized lung bases. There is an unremarkable bowel gas pattern with air seen to the level of the rectosigmoid. There is no demonstrated free abdominal air. The visualized liver, spleen and kidneys are grossly normal in size and morphology. Metallic seeds in the region of prostate. Clips at the GE junction. Sternotomy wires. Normal visualized osseous structures. RAD/Abdomen Single View (Portable) IMPRESSION: No acute finding of the abdomen or pelvis. Electronically Signed: Erlin Still MD at 17:22 EDT , Service support ,
--- NOTE | 2019-01-19 17:11 | NURSING ---
MD in to examine pt, pt c/o new onset abdominal pain. New order for KUB.
--- NOTE | 2019-01-19 17:12 | NURSING ---
Cathleen Lamb LPN's assessment reviewed and this nurse in agreement.
--- NOTE | 2019-01-19 17:39 | PCA ---
Spoke with Corina at [facility] and notified her of pt not being discharged tonight any longer.
--- NOTE | 2019-01-19 19:09 | PN_ITS ---
Subjective: Patient was seen and examined today, he remains confused, we received approval for the patient to be transferred to an extended care facility for skilled care, however, the patient had some abdominal discomfort late this afternoon and I obtained a KUB which was unremarkable. I talked to the patient's son about this who is in the room today, when I went back to examine the patient after he had his KUB, patient did not seem to have any abdominal pain. I have elected to keep the patient here tonight and reevaluate the patient in the morning possible transfer to the residential facility. Patient's echocardiogram was unremarkable, patient's imaging studies have been negative for stroke so far. - Physical Exam General: Alert, Cooperative, No apparent distress, Well developed, Confused HEENT: Atraumatic, PERRLA, EOMI, Normocephalic Oral: Moist Mucosa Neck: Supple, No JVD, Trachea Midline, Thyroid Normal Size and Texture Lungs: Clear to auscultation, Normal air movement, No rhonchi, No wheeze, No rales Cardiovascular: Regular rate, Regular Rhythm, Normal S1, Normal S2, No murmurs Abdomen: Bowel Sounds Present, Soft, Non-Distended, Tender - Patient has mild abdominal tenderness palpation in the mid abdominal area, No hernias noted Extremities: No clubbing, No cyanosis, No edema, Capillary Refill Less than 3 Seconds Skin: No rashes, No breakdown Musculoskeletal: No Tenderness to Palpation of Joints or Extremities Neurological: Cranial nerves II-XII grossly intact, Neuro grossly intact, Sensory exam intact to light touch and pain Psych/Mental Status: - - Patient is alert but confused, he is not agitated Vital Signs Temp Pulse Resp BP Pulse Ox 97.7 F L 54 L 18 136/71 H 96 01/19/19 17:34 01/19/19 17:34 01/19/19 17:34 01/19/19 17:34 01/19/19 17:34 Oxygen Flow Rate (L/min) 2 Oxygen Delivery Method Room Air Weight: 82.5 kg Body Mass Index (BMI) 28.5 Finger Stick Blood Glucose 82 Orthostatic Vital Signs Start: 01/18/19 05:51 Freq: q24h Status: Active Protocol: Activity Type Activity Date Activity User E-Sign Co-Sign Detail Recorded Client Recorded Date Recorded By Document 01/18/19 05:20 [facility] [id number] 01/18/19 05:51 [facility] 01/18/19 05:20 Orthostatic Vitals Standing -Blood Pressure (90/60-120/80) 136/65 H -Extremity Use Right Arm -Pulse Rate (60-100) 56 L Sitting -Blood Pressure (90/60-120/80) 137/68 H -Extremity Use Right Arm -Pulse Rate (60-100) 57 L Lying -Blood Pressure (90/60-120/80) 123/69 H -Extremity Use Right Arm -Pulse Rate (60-100) 56 L Intake and Output for Last 24 Hours 01/17/19 01/18/19 01/19/19 23:59 23:59 23:59 Intake Total 483 / 483 1519 / 1519 600 / 600 Output Total 400 / 400 1350 / 1350 1700 / 1700 Balance 83 / 83 169 / 169 -1100 / -1100 Medical Necessity - Tobacco Use Smoking Status: Former smoker Assessment/Plan All Active Problems TIA (transient ischemic attack) (Acute) Syncope (Acute) Debility (Acute) Chest pain (Acute) #1 syncopal episode-etiology unclear, continue to observe patient on telemetry #2 Alzheimer's dementia #3 generalized abdominal pain-etiology unclear, patient's KUB was unremarkable, we will continue to observe him for further problems #4 generalized debility-patient will need placement in a residential facility at the time of discharge #5 coronary artery disease-stable #6 essential hypertension Code Visit OBSV E&M: 43208 Subsequent observation care L3
[2019-01-19] MEDS: Donepezil HCl 10 MG Tablet PO (21:12)
[2019-01-19] MEDS: Atorvastatin Calcium 20 MG Tablet PO (21:13)
[2019-01-20] VITALS (8 sets, daily range): BP systolic 122–142; BP diastolic 66–75; PULSE 52–60; RESP 14–18; TEMP 36.7–36.8; O2SAT 93–97; BMI 28.5
[2019-01-20] MEDS: Enoxaparin 40 MG/0.4 ML Syringe SC (05:44)
[2019-01-20] MEDS: Aspirin 325 MG Tablet PO (08:32)
[2019-01-20] MEDS: Multivitamins,Ther W-Minerals Tablet 1 TABLET PO (08:33)
[2019-01-20] MEDS: Isosorbide Mononitrate 60 MG Tablet PO (09:17)
[2019-01-20] MEDS: Citalopram 10 MG Tablet PO (09:18)
[2019-01-20] MEDS: Atenolol 50 MG Tablet PO (09:18)
[2019-01-20] MEDS: amLODIPine 5 MG Tablet PO (09:18)
[2019-01-20] MEDS: Psyllium 1 PACKET PO (09:18)
[2019-01-20] MEDS: Clopidogrel Bisulfate 75 MG Tablet PO (09:18)
[2019-01-20] MEDS: Pantoprazole Sodium 20 MG Tablet PO (09:19)
[2019-01-20] MEDS: Ascorbic Acid 500 MG Tablet PO (09:19)
--- NOTE | 2019-01-20 10:47 | PCM.TXEXTCAR ---
- Diet 01/17/19 19:56 Diet: Cardiac/Low Cholesterol Is pt able to select menu?: Yes - Routine Orders/Code Status Code Status: Full Code - Therapies Physical Therapy: Eval and Treat Occupational Therapy: Eval and Treat - Problem/Diagnosis (1) Syncope Status: Acute Current Visit: Yes (2) HTN (hypertension) Status: Chronic Current Visit: No (3) CAD (coronary artery disease) Status: Chronic Current Visit: No (4) Dementia Status: Chronic Current Visit: No (5) Debility Status: Acute Current Visit: Yes - Allergies/Procedures Done in Hospital Allergies/Adverse Reactions: Allergies No Known Allergies Allergy (Verified 01/17/19 16:29) Procedures: 2-D Echocardiogram - Type of Care/Length of Stay Estimated LOS: Convalescent Care Less Than 30 days Type of Care Needed: Skilled Rehab Potential: Good Prognosis: Good - Additional Orders/Day of Discharge H&P will serve as current which was dated: 01/17/19 Day of Discharge: 01/20/19 - Follow Up Care Primary Care Physician: Boyd Collier MD [Primary Care Provider] -
--- NOTE | 2019-01-20 13:01 | CASEMGMT ---
Patient is ready for discharge to [facility]. PRASAD faxed orders. PRASAD called [facility] and arranged for patient to get picked up at 2p via cot due to confusion. PRASAD notified RN, elementary secretary, left a message for Emma at [facility] and called son, d/c to [facility] under skilled level of care on a PASRR as he is observation status. [facility] transported him via cot due to confusion. Starr MISHRA DIAMOND DIE DRILLER
--- NOTE | 2019-01-20 15:22 | NURSING ---
resport called to [facility]
--- NOTE | 2019-01-22 09:20 | PCM.DC.SUM ---
Discharge Date and Diagnosis Date of Admission: 01/17/19 Date of Discharge: 01/20/19 - Primary Discharge Diagnosis #1 syncopal episode-etiology unclear #2 Alzheimer's dementia #3 generalized abdominal pain-etiology unclear #4 generalized debility #5 coronary artery disease #6 essential hypertension #7 mild pulmonary hypertension - Secondary Discharge Diagnosis Chronic Problems Seborrheic keratoses (Chronic) HTN (hypertension) (Chronic) CAD (coronary artery disease) (Chronic) Dementia (Chronic) H/O paroxysmal supraventricular tachycardia (Chronic) Diverticulosis (Chronic) Hypercholesterolemia (Chronic) Hospital Course and Treatment Operations: None Procedures: 2-D Echocardiogram Summary of Care Provided: The patient is a 83 year old M seen in the emergency room at [facility] after being brought by squad after being found down at his assisted living residence. Patient has a history of Alzheimer's dementia and cannot give a review of systems. Work-up in the emergency room included a CT of the brain which showed no acute pathology, chest x-ray was unremarkable, and his labs are unremarkable. Patient was placed in the observation status on PCU, he was seen by PT and OT and they felt the patient would benefit from inpatient rehab services and it was [facility] that [facility]. Echocardiogram was obtained in the hospital which showed a normal EF with mild pulmonary hypertension. On the plan day of discharge to the penitentiary facility, patient had an episode of abdominal discomfort and tenderness, KUB was performed which was unremarkable. Patient was kept in the hospital in the next day reevaluated, he had no complaints of any abdominal discomfort the next day. On 01/20/2019, patient was seen and examined: On examination he appeared in good health and spirits. Vital signs as documented. Skin warm and dry and without overt rashes. Neck without JVD. Lungs clear. Heart exam notable for regular rhythm, normal sounds and absence of murmurs, rubs or gallops. Abdomen unremarkable and without evidence of organomegaly, masses, or abdominal aortic enlargement. Extremities nonedematous. Neuro: Cranial nerves II through XII are grossly intact, no focal motor deficits were noted, sensation to light touch and pinprick intact. Psych: Patient is alert and confused On 01/20/2019, patient was seen and examined and felt to be in stable condition for discharge to an extended care facility. - Physical Exam Vital Signs Temp Pulse Resp BP Pulse Ox 98.3 F 56 L 14 142/75 H 95 01/20/19 09:08 01/20/19 11:25 01/20/19 09:08 01/20/19 09:08 01/20/19 09:08 Oxygen Flow Rate (L/min) 2 Oxygen Delivery Method Room Air Weight: 82.5 kg Body Mass Index (BMI) 28.5 Finger Stick Blood Glucose 82 Intake and Output for Last 24 Hours 01/20/19 01/21/19 01/22/19 23:59 23:59 23:59 Intake Total 650 / 650 Output Total 200 / 200 Balance 450 / 450 Home Medications: Medications to take at Discharge Acetaminophen [Tylenol] 325 mg PO Q8H PRN 10/23/17 Ascorbic Acid [Vitamin C] 500 mg PO DAILY 10/23/17 Aspirin 325 mg PO DAILY 10/23/17 Atenolol 50 mg PO DAILY 10/23/17 Atorvastatin Calcium 20 mg PO QHS 10/23/17 Donepezil HCl 10 mg PO QHS 10/23/17 Isosorbide Mononitrate [Isosorbide Mononitrate ER] 60 mg PO BID 10/23/17 Multivitamins,Ther W-Minerals [Multivitamin With Minerals] 1 tablet PO QHS 10/23/17 Psyllium [Metamucil] 1 packet PO DAILY 10/23/17 Cholecalciferol (Vitamin D3) [Vitamin D3] 2,000 unit PO DAILY 08/28/18 Vit C/E/Zn/Coppr/Lutein/Zeaxan [Preservision Areds 2 Softgel] 1 each PO DAILY 08/28/18 Amlodipine Besylate [Norvasc] 5 mg PO BID 01/17/19 Calcium Carbonate [Tums] 2 tab PO Q2H PRN PRN 01/17/19 Citalopram Hydrobromide [Citalopram HBr] 10 mg PO DAILY 01/17/19 Clopidogrel Bisulfate [Clopidogrel] 75 mg PO DAILY 01/17/19 Omeprazole 20 mg PO DAILY 01/17/19 Primary Care Physician: Boyd Collier MD [Primary Care Provider] - Disposition: [facility] facility Minutes spent on discharge:: 30 Patient Condition:: Stable Medical Necessity - Tobacco Use Smoking Status: Former smoker Meaningful Use Info Meaningful Use Diagnoses (Choose all that apply): None applicable Code Visit OBSV E&M: 20278 Observation care discharge
== END 2019-01-20 10:49 | disposition skilled nursing facility (03) ==
LOC: ED 17:10 → PCU 17:26
PROVIDERS: Admitting Provider Student in an Organized Health Care Education/Training Program; Emergency Provider Emergency Medicine; Family Provider Family Medicine; PCP Family Medicine; Visit Provider Internal Medicine
DX: R55 Syncope and collapse (principal); G30.9 Alzheimer's disease, unspecified; F02.80 Dementia in other diseases classified elsewhere, unspecified severity, without behavioral disturbance, psychotic disturbance, mood disturbance, and anxiety; I25.10 Atherosclerotic heart disease of native coronary artery without angina pectoris; I10 Essential (primary) hypertension; I27.20 Pulmonary hypertension, unspecified; R29.810 Facial weakness; R53.1 Weakness; E78.5 Hyperlipidemia, unspecified; R47.1 Dysarthria and anarthria; F41.8 Other specified anxiety disorders; Z87.891 Personal history of nicotine dependence; Z79.899 Other long term (current) drug therapy; Z79.82 Long term (current) use of aspirin; Z79.02 Long term (current) use of antithrombotics/antiplatelets; Z95.1 Presence of aortocoronary bypass graft
CPT/HCPCS: 36415; 70450; 70496; 70498; 70551; 71045; 74018; 80048; 80061; 82962; 84484; 85025; 85610; 85730; 92526; 92610; 93005; 93306; 94762; 96360; 96361; 96372; 97112; 97116; 97162; 97166; 99218; 99285; J7030; Q9957; Q9967; A4216; C8929; G0378

== ENCOUNTER 2019-04-15 17:14 | Observation (INO) | payer MEDICARE, SELFPAY ==
[2019-01-20 03:15] VITALS: BMI 28.5
[2019-04-15] VITALS (8 sets, daily range): BP systolic 129–143; BP diastolic 64–74; PULSE 60–71; RESP 18; TEMP 36.7–36.9; O2SAT 94–95; BMI 29.9; BMI 28.5
--- NOTE | 2019-04-15 17:28 | EKG12_ITS ---
Test Reason : CP Blood Pressure : / mmHG Vent. Rate : 059 BPM Atrial Rate : 059 BPM P-R Int : 204 ms QRS Dur : 106 ms QT Int : 468 ms P-R-T Axes : 024 018 051 degrees QTc Int : 463 ms Sinus bradycardia Possible Inferior infarct , age undetermined Abnormal ECG Confirmed by ASIM HARRIS ([id number]), publications editor ISMAEL GUEVARA ([id number]) on 04/27/2019 3:50:12 PM Referred By: Josué Johnson Confirmed By:ASIM HARRIS
--- NOTE | 2019-04-15 17:28 | CT_ITS ---
STUDY: CT CERVICAL SPINE WITHOUT CONTRAST REASON FOR EXAM: Male, 83 years old. Fall. RADIATION DOSAGE (If Supplied By Facility): CTDIvol = ( 24.56 ) mGy, DLP = ( 572.05 ) mGycm TECHNIQUE: High resolution transaxial imaging was performed without contrast material. Sagittal and coronal images were reconstructed. Individualized dose optimization techniques were used for this CT. COMPARISON: None FINDINGS: No definite acute fracture/dislocation. The cervical junction is intact. C1-C2 articulation is intact. Curvature is within normal limits. There is normal alignment. Facet joints are intact at all levels bilaterally. No jumped facets. There is multilevel spondyloarthropathy. Multilevel degenerative disc disease seen. Multilevel loss of disc height. Multilevel posterior marginal osteophytes and disc bulges. Multilevel neural foraminal narrowing. Multilevel narrowing of the spinal canal. Findings most prominent at C6-C7. There is an incidental 8 cm lipoma in the posterior right neck. Visualized paraspinal soft tissues and structures are otherwise unremarkable. CT/Spine Cervical without Contras IMPRESSION: There is no definite acute fracture/dislocation. Degenerative changes. Electronically Signed: Abhijit Jain MD at 18:01 EDT , Service support ,
--- NOTE | 2019-04-15 17:28 | CT_ITS ---
STUDY: CT BRAIN WITHOUT CONTRAST REASON FOR EXAM: Male, 83 years old. Fall RADIATION DOSAGE (If Supplied By Facility): DLP = ( 812.98 ) mGycm TECHNIQUE: Transaxial CT imaging of the brain was performed without administration of intravenous contrast material. Individualized dose optimization techniques were used for this CT. COMPARISON: CT head January 17, 2019 FINDINGS: There is no acute bleed or infarct. There are chronic ischemic and atrophic changes. The ventricles are normal in configuration. There is no hydrocephalus. The visualized paranasal sinuses are clear. The mastoid air cells are well aerated. There is no skull fracture. CT/Brain/Head without Contrast IMPRESSION: No acute intracranial abnormality. Chronic ischemic and atrophic changes. Electronically Signed: Dat Doan, at 17:57 EDT Tel , Service support ,
--- NOTE | 2019-04-15 17:28 | RAD_ITS ---
STUDY: X-RAY - LEFT SHOULDER REASON FOR EXAM: Male, 83 years old. 4 TECHNIQUE: 4 view(s) of the shoulder. COMPARISON: None. FINDINGS: There is no evidence of fracture or dislocation. Mild degenerative changes are present at the acromioclavicular joint. There are no radiodense foreign bodies. RAD/Shoulder min 2 Views IMPRESSION: No fracture or dislocation. Mild degenerative changes at the acromioclavicular joint. Electronically Signed: Dat Doan, at 18:00 EDT Tel , Service support ,
--- NOTE | 2019-04-15 17:40 | RAD_ITS ---
STUDY: X-RAY CHEST REASON FOR EXAM: Male, 83 years old. Fall TECHNIQUE: Frontal view of the chest COMPARISON: X-ray chest January 17, 2019 FINDINGS: Post-CABG changes are present. Retrocardiac atelectasis and/or small infiltrate is present. The lungs are otherwise clear. There are no pleural effusions. There is no pneumothorax. The heart is mildly enlarged. The visualized osseous structures are within normal limits. RAD/Chest 1 View (Portable) IMPRESSION: Retrocardiac atelectasis and/or small infiltrate. Mild cardiomegaly. Electronically Signed: Dat Doan, at 17:59 EDT Tel , Service support ,
[2019-04-15 17:41] LABS: Absolute Lymphocyte Count 1.61 X10^3/uL (0.83-4.51); Absolute Neutrophil Count 3.5 X10^3/uL (2.0-7.7); Basophil# 0.03 X10^3/uL; Basophil% 0.5 % (0-1); Eosinophil# 0.29 X10^3/uL; Eosinophils% 4.6 % (0-5); Hematocrit 43.8 % (40-54); Hemoglobin 14.1 g/dL (13.0-16.5); Lymphocyte # 1.61 X10^3/ul (4.0); Lymphocyte % 25.6 % (19-41); Mean Corp Hgb Conc 32.2 g/dL (32-36); Mean Corpuscular Hgb 30.5 pg (27.0-32.0); Mean Corpuscular Volume 94.6 fL (80-94); Mean Platelet Vol. 9.3 fl (6.2-12.0); Monocyte# 0.83 X10^3/uL; Monocyte% 13.2 % (0-10); NRBC Flagged by Analyzer 0 % (0-5); Neutrophil % 55.8 % (47-70); Platelet Count 156 K/mm3 (150-450); RBC Distribution Width SD 45.7 fl (35.1-43.9); Red Blood Count 4.63 M/mm3 (4.6-6.2); White Blood Count 6.3 K/mm3 (4.4-11.0)
[2019-04-15 18:07] LABS: Anion Gap 4 (5-15); BUN 17 mg/dL (7-18); BUN/Creat Ratio 14.5 RATIO (10-20); Calcium,Total 8.9 mg/dL (8.5-10.1); Chloride 102 mmol/L (98-107); Creatinine, Serum 1.17 mg/dL (0.70-1.30); EST Glomerular Filtration Rate 63 mL/min (>60); Est Glom Filt Rate - Afr Amer 76 mL/min (>60); Estimated Creatinine Clearance 43.94 ml/min; Glucose 94 mg/dL (74-106); Sodium Level 136 mmol/L (136-145)
[2019-04-15 18:23] LABS: Bacteria 0 SEEN /hpf (None Seen); Mucous, Urine 0 SEEN /hpf (<or=2+); Squamous Epithelial Cells - UA 0 SEEN /hpf (0-5); White Blood Cells 0 SEEN /hpf (0-5)
--- NOTE | 2019-04-15 18:28 | ED.DCSUM_ITS ---
- ER Visit Summary Date of Service: 04/15/19 Chief Complaint: Fall History of Present Illness: The patient is a 83 M who presents from his long-term for a fall. The patient was discharged earlier today from outside hospital after he was admitted for a fall. He was discharged today. He was at his [facility] for a few hours. He was getting ready to eat and fell. He hit the back of his head and injured his left shoulder. He had a loss of consciousness for about 30 seconds. He does take aspirin and Plavix. He also is reporting some chest pain. The pain started after the fall. It is over his left chest and radiates down his left arm. He does have a history of coronary disease. He also has a history of TIA, syncope, dementia, PSVT, hypertension, hyperlipidemia. Physical Examination: Afebrile and vital signs unremarkable. Patient has an occipital contusion, but otherwise his head is atraumatic. HEENT exam normal. Neck is nontender. Heart regular rate and rhythm. Lungs clear bilaterally. He does have some left chest tenderness. No crepitus or other abnormal findings. Left shoulder tender to palpation, no deformity. Neurovascularly intact distally. His other extremities are unremarkable. Abdomen is soft and nontender. Skin appears unremarkable. He is neurovascular intact. Cranial nerves grossly intact. He has a depressed mood and flat affect. Hard of hearing. Test Results: EKG showed sinus rhythm rate 62. No sign of ischemia, infarction, dysrhythmia. CBC normal. Chemistry panel normal. Troponin normal. Urinalysis pending. Chest x-ray showed cardiomegaly with a retrocardiac atelectasis versus infiltrate. His shoulder x-ray showed chronic changes. Nothing acute. No fracture. CT of his brain and cervical spine showed chronic changes only. Nothing acute. No fractures or internal bleeding. Emergency Department Course and Treatment: Patient was placed on a monitor. Will assess for syncope and also trauma from his fall. EKG and troponin unremarkable. Basic labs and urinalysis unremarkable. Imaging showed a possible retrocardiac atelectasis versus infiltrate. I spoke with the patient's son. He has an ongoing cough. No fevers or sputum. X-rays of the shoulder, C-spine, and brain showed chronic changes. Given the possible infiltrate and ongoing cough, I did treat with antibiotics, Zosyn and vancomycin. It sounds like the patient is not doing well in his assisted living. It almost sounds like a vascular dementia type pattern. He seems to do poorly in a stepwise pattern. He is falling more frequently. I talked with the son, and it sounds like he may need to be placed in a nursing facility. I contacted the hospitalist to admit. Treatment Plan: As above Disposition: Admission Impression: 1. Syncope 2. Pneumonia This note was generated with [employer] dictation software. It may contain incorrect words, spelling, and punctuation that were not noted in review of the chart prior to signing ED Disposition - Plan for ED Patient: Referrals: Boyd Collier MD [Primary Care Provider] -
[2019-04-15 18:38] LABS: Color, Urine Yellow (Yellow); Glucose, Dipstick Normal (Normal); Ketone-Dipstick Negative (Negative); Leukocyte Esterase-Dipstick Negative /ul (Negative); Nitrite-Dipstick Negative (Negative); Occult Blood-Urine 10 /ul (Negative); Protein-Dipstick Negative (Negative); Urine Bilirubin Dipstick Negative (Negative); Urine Clarity Clear (Clear); Urine Urobilinogen Normal (Normal)
[2019-04-15 19:04] LABS: Red Blood Cells-Urine 0-5 SEEN /hpf (0-5)
--- NOTE | 2019-04-15 19:22 | HP.PCM_ITS ---
Problem List (1) Fall Status: Acute (2) TIA (transient ischemic attack) Status: Inactive (3) Syncope Status: Inactive (4) Debility Status: Chronic History of Present Illness Date of Admission: 04/15/19 Chief Complaint: fall The patient is a 83 year old M with a significant history of hypertension; prostate cancer status post brachytherapy seed implants; TIA; CAD status post CABG and coronary stent and dementia who presented to the emergency department with a fall that happened a few hours prior to presentation.. After the fall he had a brief period of loss of consciousness. Patient fell while at the [facility] [place] [facility]. Previously he was at the assisted living side of [facility] but following a previous hospitalization he was transferred to the halfway unit for rehab. He stayed at a halfway facility for about 1 month and got his strength back up. He then went to the assisted living place. While at [facility] he fell about 2 days ago and was admitted at [facility] at [facility]. From [facility] he was discharged back to the halfway facility at [facility]. And about 3 hours of re-admission to the skilled part of [facility] patient fell again and was brought to the ED. At the ED his brain CT did not show any acute disease. Cervical spine CT; and shoulder x-ray also did not show any acute disease. Chest x-ray showed retrocardiac atelectasis versus small infiltrates. Because patient has dementia he is unable to provide history so almost all the history was taken from patient's son. Per patient's son while at [facility] patient was initially started on medication for a pneumonia but the doctors did not think that he has pneumonia so pneumonia treatment was discontinued. Per son patient has been having a productive cough. Son reports that since January of this year patient has had multiple falls. Patient complains of left-sided chest pain. Past Medical History Past Medical History (Chronic Problems): Chronic Problems Debility (Chronic) Seborrheic keratoses (Chronic) HTN (hypertension) (Chronic) CAD (coronary artery disease) (Chronic) Dementia (Chronic) H/O paroxysmal supraventricular tachycardia (Chronic) Diverticulosis (Chronic) Hypercholesterolemia (Chronic) Allergies No Known Allergies Allergy (Verified 04/15/19 17:19) Home Medications: Ambulatory Orders Medication Instructions Recorded Acetaminophen [Tylenol] 650 mg PO Q4H PRN PRN 10/23/17 Ascorbic Acid [Vitamin C] 500 mg PO DAILY 10/23/17 Aspirin 325 mg PO DAILY 10/23/17 Atenolol 50 mg PO DAILY 10/23/17 Atorvastatin Calcium 20 mg PO QHS 10/23/17 Donepezil HCl 10 mg PO QHS 10/23/17 Cholecalciferol (Vitamin D3) 2,000 unit PO DAILY 08/28/18 [Vitamin D3] Vit C/E/Zn/Coppr/Lutein/Zeaxan 1 each PO BID 08/28/18 [Preservision Areds 2 Softgel] Amlodipine Besylate [Norvasc] 5 mg PO DAILY 01/17/19 Citalopram Hydrobromide 10 mg PO DAILY 01/17/19 [Citalopram HBr] Clopidogrel Bisulfate [Clopidogrel] 75 mg PO DAILY 01/17/19 Omeprazole 20 mg PO DAILY 01/17/19 Guaifenesin [Robitussin] 10 ml PO Q4H PRN PRN 04/15/19 Isosorbide Mononitrate [Imdur] 60 mg PO BID 04/15/19 Surgical History: Surgical History (Last Reviewed 04/16/19 @ 06:33 by Josué Johnson MD) S/P CABG x 4 Z95.1 Surgical History: coronary bypass surgery, - - 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 Lives: Alf Smoking Status: Former smoker Alcohol: None - *Family History Maternal History Items: - - Unable to obtain history from patient because of severe dementia. Per son one of his siblings(son siblings) has diabetes. Paternal History Items: - - Unable to obtain history from patient because of severe dementia. Per son one of his siblings(son siblings) has diabetes. Review of Systems Unable to obtain accurate/complete ROS d/t: confusion. History otherwise was obtained from son and is as in hpi. VTE Information - Inpt Only VTE Present on Admission: No VTE Mechan Device Prophylaxis: SCD's VTE Pharm Prophylaxis ordered?: No Patient Problems: Active and Suspected Problems Fall (Acute) - Physical Exam General: Alert, Confused - Patient thinks hat he is in his son's house. HEENT: Normocephalic, - - Abrasions on posterior scalp; lump at the posterior neck (chronic) Neck: Supple, No JVD, Negative Carotid Bruits, Trachea Midline Lungs: Clear to auscultation, Normal air movement Cardiovascular: Regular rate, No murmurs Abdomen: Bowel Sounds Present, Soft, Non Tender Extremities: No edema, Capillary Refill Less than 3 Seconds Skin: No rashes, No breakdown Musculoskeletal: No Tenderness to Palpation of Joints or Extremities Neurological: Cranial nerves II-XII grossly intact Psych/Mental Status: Normal Affect, Appropriate Vital Signs Temp Pulse Resp BP Pulse Ox 98.5 F 71 18 132/64 H 94 04/15/19 17:14 04/15/19 18:41 04/15/19 18:41 04/15/19 18:41 04/15/19 18:41 Oxygen Delivery Method Room Air Weight: 86.8 kg Body Mass Index (BMI) 29.9 Finger Stick Blood Glucose 82 Laboratory Tests Past 24 Hrs 04/15/19 04/15/19 04/15/19 17:25 17:25 18:16 WBC 6.3 RBC 4.63 Hgb 14.1 Hct 43.8 MCV 94.6 H MCH 30.5 MCHC 32.2 RDW Std Deviation 45.7 H RDW Coeff of Belle 13.0 Plt Count 156 MPV 9.3 Immature Gran % (Auto) 0.300 Neut % (Auto) 55.8 Lymph % (Auto) 25.6 [place] % (Auto) 13.2 H Eos % (Auto) 4.6 Baso % (Auto) 0.5 Absolute Neuts (auto) 3.5 Absolute Lymphs (auto) 1.61 Nucleated RBC % 0 Sodium 136 Potassium 4.0 Chloride 102 Carbon Dioxide 30.0 Anion Gap 4 L BUN 17 Creatinine 1.17 Estim Creat Clear Calc 43.94 Est GFR (MDRD) Af Amer 76 Est GFR (MDRD) Non-Af 63 BUN/Creatinine Ratio 14.5 Glucose 94 Calcium 8.9 Troponin I 0.015 Urine Color Yellow Urine Clarity Clear Urine pH 6.0 Ur Specific [place] 1.010 Urine Protein Negative Urine Glucose (UA) Normal Urine Ketones Negative Urine Occult Blood 10 H Urine Nitrite Negative Urine Bilirubin Negative Urine Urobilinogen Normal Ur Leukocyte Esterase Negative Urine RBC 0-5 SEEN Urine WBC 0 SEEN Ur Squamous Epith Cells 0 SEEN Urine Bacteria 0 SEEN Urine Mucus 0 SEEN Assessment/Plan All Active Problems Fall (Acute) Chest pain (Acute) The patient is a 83 year old M with a significant history of hypertension; prostate cancer status post prostatic titanium seeds; TIA; CAD status post CABG and coronary stent and dementia who presented to the emergency department with recurrent falls. Recurrent falls Patient has been evaluated multiple times at the hospital without any clear etiology. His sons think that patient has been having progressively worsening dementia and this may be the cause of his fall. Continue Aricept at same dose. Recommend that after his discharge he follows up with neurology or PCP for further management of his dementia. PT and OT to work with patient. Case management consult to work patient for possible transfer back to [facility]. Tylenol for pain. Atelectasis Incentive spirometer if patient can follow the directions. Probable bronchitis With no fever and leukocytosis patient probably has bronchitis. Patient received vancomycin and Zosyn in the emergency department. We will continue patient with treatment with azithromycin. CAD status post CABG and stent/TIA. Patient is on aspirin 325 mg and Plavix. His son report that patient had CABG about 20 years ago; and stent was placed a bout 5 to 6 years ago. Because of abrasions of his head will de-escalate his aspirin from full dose aspirin to baby aspirin. Would hold his Plavix for now. Abrasions on occipital scalp. Apply Bactroban Of note patient has some cysts/lump at his the back of his neck that is chronic. Per son patient did not want any surgical intervention. Chest pain Likely muscle skeletal Trend troponin. Aspirin changed to baby aspirin because of recent fall and increased risk of bleeding. Home Plavix held for the same reason. DVT prophylaxis We will do SCD because of recent fall with patient hitting his head. Code Visit OBSV E&M: 84219 Initial observation care L3
[2019-04-15] MEDS: Mupirocin Ointment 22gm Tube 1 APPLIC TOPICAL (23:06)
[2019-04-15] MEDS: guaiFENesin 1,200 MG Tablet 1200 MG PO (23:07)
[2019-04-15] MEDS: Isosorbide Mononitrate 60 MG Tablet PO (23:07)
[2019-04-15] MEDS: Atorvastatin Calcium 20 MG Tablet PO (23:07)
[2019-04-15] MEDS: Donepezil HCl 10 MG Tablet PO (23:07)
[2019-04-16] VITALS (10 sets, daily range): BP systolic 111–153; BP diastolic 51–78; PULSE 55–117; RESP 16–18; TEMP 36.7–36.9; O2SAT 94–96
--- NOTE | 2019-04-16 10:13 | CASEMGMT ---
PRASAD spoke with Sylvie at [facility]. She said that patient was only with them a day before he fell. They can take him back. She is not sure he will need a new pre-cert. Patient is observation status so if he returns within 24 hours he should not need a new one. PRASAD will follow. Starr MISHRA MSW
[2019-04-16] MEDS: Multivitamin (Healthy Eyes) Capsule 1 CAP PO ×2 (10:30→16:50)
[2019-04-16] MEDS: amLODIPine 5 MG Tablet PO (10:30)
[2019-04-16] MEDS: Azithromycin 250 MG Tablet 500 MG PO (10:30)
[2019-04-16] MEDS: Mupirocin Ointment 22gm Tube 1 APPLIC TOPICAL ×2 (10:30→21:09)
[2019-04-16] MEDS: Atenolol 50 MG Tablet PO (10:30)
[2019-04-16] MEDS: guaiFENesin 1,200 MG Tablet 1200 MG PO ×2 (10:30→21:08)
[2019-04-16] MEDS: Isosorbide Mononitrate 60 MG Tablet PO ×2 (10:30→21:08)
[2019-04-16] MEDS: Pantoprazole Sodium 20 MG Tablet PO (10:30)
[2019-04-16] MEDS: Aspirin 81 MG TAB.CHEW PO (10:30)
[2019-04-16] MEDS: Citalopram 10 MG Tablet PO (10:30)
[2019-04-16] MEDS: Ondansetron 4 MG/2 ML Vial IV (10:36)
--- NOTE | 2019-04-16 13:42 | CASEMGMT ---
SW spoke with patient's son. Introduced self and role at [facility]. SW asked if the plan is for patient to return to [facility] when he is ready. He said that is the plan. SW to follow for d/c back to [facility]. Patient will require a new insurance authorization. Starr CLARKE
--- NOTE | 2019-04-16 14:00 | PCM.PROGNOTE ---
<Ismael Campo - Last Filed: 04/16/19 14:00> Patient Problems: Active and Suspected Problems Fall (Acute) Subjective: Pt lethargic, hard of hearing. Son present, very upset that a specific diagnosis has not been provided. The patient had been falling at assisted living, was admitted here for 4 days without specific diagnosis, went back to SNF and fell, was sent from there to [facility] as initially the son refused to have him come back here, was sent back to SNF from [place] with no specific findings, and fell again at the SNF --> sent here again. The patient has severe dementia that was initially found in 2008. The son relayed that at the shelter the aid told him to stay in bed, but as soon as he left the room the patient got out of bed and fell. He does have an occasional cough. No fever/chills. He is resting comfortably in bed, lethargic, sleeping, minimally participating in interview. - Physical Exam General: Cooperative, Confused, Lethargic HEENT: Atraumatic, PERRLA, EOMI, Normocephalic Neck: Supple, No JVD, Negative Carotid Bruits Lungs: Clear to auscultation, Normal air movement Cardiovascular: Regular rate, No murmurs Abdomen: Bowel Sounds Present, Soft, Non Tender Extremities: No edema, Capillary Refill Less than 3 Seconds Skin: No rashes, No breakdown Musculoskeletal: No Tenderness to Palpation of Joints or Extremities Neurological: Cranial nerves II-XII grossly intact Psych/Mental Status: Normal Affect, Appropriate, Alert and oriented to time, place, person, mood and affect Vital Signs Temp Pulse Resp BP Pulse Ox 98.4 F 60 16 129/68 H 96 04/16/19 08:53 04/16/19 08:53 04/16/19 08:53 04/16/19 08:53 04/16/19 08:53 Oxygen Delivery Method Room Air Weight: 182 lb 8.684 oz Body Mass Index (BMI) 28.5 Finger Stick Blood Glucose 82 Intake and Output for Last 24 Hours 04/14/19 04/15/19 04/16/19 23:59 23:59 23:59 Intake Total 735 / 735 360 / 360 Output Total 500 / 500 1350 / 1350 Balance 235 / 235 -990 / -990 Laboratory Tests Past 24 Hrs 04/15/19 04/15/19 04/15/19 17:25 17:25 18:16 WBC 6.3 RBC 4.63 Hgb 14.1 Hct 43.8 MCV 94.6 H MCH 30.5 MCHC 32.2 RDW Std Deviation 45.7 H RDW Coeff of Belle 13.0 Plt Count 156 MPV 9.3 Immature Gran % (Auto) 0.300 Neut % (Auto) 55.8 Lymph % (Auto) 25.6 Lawrence % (Auto) 13.2 H Eos % (Auto) 4.6 Baso % (Auto) 0.5 Absolute Neuts (auto) 3.5 Absolute Lymphs (auto) 1.61 Nucleated RBC % 0 Sodium 136 Potassium 4.0 Chloride 102 Carbon Dioxide 30.0 Anion Gap 4 L BUN 17 Creatinine 1.17 Estim Creat Clear Calc 43.94 Est GFR (MDRD) Af Amer 76 Est GFR (MDRD) Non-Af 63 BUN/Creatinine Ratio 14.5 Glucose 94 Calcium 8.9 Troponin I 0.015 Urine Color Yellow Urine Clarity Clear Urine pH 6.0 Ur Specific [place] 1.010 Urine Protein Negative Urine Glucose (UA) Normal Urine Ketones Negative Urine Occult Blood 10 H Urine Nitrite Negative Urine Bilirubin Negative Urine Urobilinogen Normal Ur Leukocyte Esterase Negative Urine RBC 0-5 SEEN Urine WBC 0 SEEN Ur Squamous Epith Cells 0 SEEN Urine Bacteria 0 SEEN Urine Mucus 0 SEEN 04/15/19 04/16/19 04/16/19 22:20 00:50 03:54 WBC RBC Hgb Hct MCV MCH MCHC RDW Std Deviation RDW Coeff of [place]t Count MPV Immature Gran % (Auto) Neut % (Auto) Lymph % (Auto) Lawrence % (Auto) Eos % (Auto) Baso % (Auto) Absolute Neuts (auto) Absolute Lymphs (auto) Nucleated RBC % Sodium Potassium Chloride Carbon Dioxide Anion Gap BUN Creatinine Estim Creat Clear Calc Est GFR (MDRD) Af Amer Est GFR (MDRD) Non-Af BUN/Creatinine Ratio Glucose Calcium Troponin I 0.017 0.021 0.018 Urine Color Urine Clarity Urine pH Ur Specific [place] Urine Protein Urine Glucose (UA) Urine Ketones Urine Occult Blood Urine Nitrite Urine Bilirubin Urine Urobilinogen Ur Leukocyte Esterase Urine RBC Urine WBC Ur Squamous Epith Cells Urine Bacteria Urine Mucus Medical Necessity - Tobacco Use Smoking Status: Former smoker Assessment/Plan All Active Problems Fall (Acute) Chest pain (Acute) 1. Debility with recurrent falls - PTOT, pt noncompliant with activity restrictions due to dementia. He needs to be placed in a dementia unit with 24 hour supervision. Check Vit D and B12. CT brain and C spine negative. Shoulder Xray neg. 2. Acute bronchitis - continue azithromycin. No fever/leukocytosis. 3. Alzheimers - progressively worsening, I suspect this is the primary reason for his ongoing problems. He has had this for ten years. Continue aricept. Celexa is appropriate to continue. Speech eval. 4. CAD, prior CABG - asa/statin/atenolol/imdur 5. HTN - stable. DVT ppx: SCDs DC Planning: SNF - needs higher level of care than prior, has failed going to SNF twice so far. This patient was seen by Ismael Campo PA-C under the supervision of Doctor Lyudmila. <Yumiko Coreas - Last Filed: 04/16/19 16:49> - Physical Exam Vital Signs Temp Pulse Resp BP Pulse Ox 98.2 F 63 16 125/55 H 94 04/16/19 15:00 04/16/19 16:04 04/16/19 15:00 04/16/19 16:04 04/16/19 15:00 Oxygen Delivery Method Room Air Weight: 82.8 kg Body Mass Index (BMI) 28.5 Finger Stick Blood Glucose 82 Orthostatic Vital Signs Start: 04/16/19 16:04 Freq: q24h Status: Active Protocol: Activity Type Activity Date Activity User E-Sign Co-Sign Detail Recorded Client Recorded Date Recorded By Document 04/16/19 16:04 EEB [id number] 04/16/19 16:06 EEB 04/16/19 16:04 Orthostatic Vitals Standing -Blood Pressure (90/60-120/80) 111/51 L -Extremity Use Right Arm -Pulse Rate (60-100) 72 Sitting -Blood Pressure (90/60-120/80) 125/55 H -Extremity Use Right Arm -Pulse Rate (60-100) 69 Lying -Blood Pressure (90/60-120/80) 125/55 H -Extremity Use Right Arm -Pulse Rate (60-100) 63 Intake and Output for Last 24 Hours 04/14/19 04/15/19 04/16/19 23:59 23:59 23:59 Intake Total 735 / 735 360 / 360 Output Total 500 / 500 1350 / 1350 Balance 235 / 235 -990 / -990 Laboratory Tests Past 24 Hrs 04/15/19 04/15/19 04/15/19 17:25 17:25 18:16 WBC 6.3 RBC 4.63 Hgb 14.1 Hct 43.8 MCV 94.6 H MCH 30.5 MCHC 32.2 RDW Std Deviation 45.7 H RDW Coeff of Belle 13.0 Plt Count 156 MPV 9.3 Immature Gran % (Auto) 0.300 Neut % (Auto) 55.8 Lymph % (Auto) 25.6 Lawrence % (Auto) 13.2 H Eos % (Auto) 4.6 Baso % (Auto) 0.5 Absolute Neuts (auto) 3.5 Absolute Lymphs (auto) 1.61 Nucleated RBC % 0 Sodium 136 Potassium 4.0 Chloride 102 Carbon Dioxide 30.0 Anion Gap 4 L BUN 17 Creatinine 1.17 Estim Creat Clear Calc 43.94 Est GFR (MDRD) Af Amer 76 Est GFR (MDRD) Non-Af 63 BUN/Creatinine Ratio 14.5 Glucose 94 Calcium 8.9 Troponin I 0.015 Vitamin B12 Vit D 1,25-Dihydroxy Urine Color Yellow Urine Clarity Clear Urine pH 6.0 Ur Specific [place] 1.010 Urine Protein Negative Urine Glucose (UA) Normal Urine Ketones Negative Urine Occult Blood 10 H Urine Nitrite Negative Urine Bilirubin Negative Urine Urobilinogen Normal Ur Leukocyte Esterase Negative Urine RBC 0-5 SEEN Urine WBC 0 SEEN Ur Squamous Epith Cells 0 SEEN Urine Bacteria 0 SEEN Urine Mucus 0 SEEN 04/15/19 04/16/19 04/16/19 22:20 00:50 03:54 WBC RBC Hgb Hct MCV MCH MCHC RDW Std Deviation RDW Coeff of [place]t Count MPV Immature Gran % (Auto) Neut % (Auto) Lymph % (Auto) [place] % (Auto) Eos % (Auto) Baso % (Auto) Absolute Neuts (auto) Absolute Lymphs (auto) Nucleated RBC % Sodium Potassium Chloride Carbon Dioxide Anion Gap BUN Creatinine Estim Creat Clear Calc Est GFR (MDRD) Af Amer Est GFR (MDRD) Non-Af BUN/Creatinine Ratio Glucose Calcium Troponin I 0.017 0.021 0.018 Vitamin B12 Vit D 1,25-Dihydroxy Urine Color Urine Clarity Urine pH Ur Specific [place] Urine Protein Urine Glucose (UA) Urine Ketones Urine Occult Blood Urine Nitrite Urine Bilirubin Urine Urobilinogen Ur Leukocyte Esterase Urine RBC Urine WBC Ur Squamous Epith Cells Urine Bacteria Urine Mucus 04/16/19 04/16/19 14:25 14:25 WBC RBC Hgb Hct MCV MCH MCHC RDW Std Deviation RDW Coeff of [place] Plt Count MPV Immature Gran % (Auto) Neut % (Auto) Lymph % (Auto) Lawrence % (Auto) Eos % (Auto) Baso % (Auto) Absolute Neuts (auto) Absolute Lymphs (auto) Nucleated RBC % Sodium Potassium Chloride Carbon Dioxide Anion Gap BUN Creatinine Estim Creat Clear Calc Est GFR (MDRD) Af Amer Est GFR (MDRD) Non-Af BUN/Creatinine Ratio Glucose Calcium Troponin I Vitamin B12 520 Vit D 1,25-Dihydroxy Pending Urine Color Urine Clarity Urine pH Ur Specific [place] Urine Protein Urine Glucose (UA) Urine Ketones Urine Occult Blood Urine Nitrite Urine Bilirubin Urine Urobilinogen Ur Leukocyte Esterase Urine RBC Urine WBC Ur Squamous Epith Cells Urine Bacteria Urine Mucus Assessment/Plan This patient was seen in conjunction with CHAITANYA Cavanaugh. I have independently interviewed and examined the patient and reviewed pertinent historical, laboratory, and other data. Please refer to CHAITANYA Cavanaugh note for his patient's presentation, findings, and recommendations. I have reviewed and his note and concur with his documentation Patient was seen and examined. I had a long talk with the patient son who is his power of contract attorney. Patient has baseline unsteady gait, with a shuffling component. He has been falling. This is his second fall in less than a week. His son is aware of the patient's cognitive decline which have been ongoing for 9 years. There was an apparent plateau of his progress but in the last few weeks he seems to have been progressively declining. He is wondering if this something that would perhaps stop the decline. Patient denies any complaints. He is pleasant. Other acute events overnight Physical Exam: Gen: Appears very comfortable, not pale, not jaundiced, lipoma on the posterior neck, huge, measuring more than 20 cm in diameter CVS:HS I +II, regular, no murmurs RESP: CTA GI: BS present and normal, soft, nontender, no palpable organs EXT:No edema [employer]ACHINE [employer]ATOR: NF 2 through 12 intact, power is 5/5 in upper extremities, 4/5 in right lower extremity and 5/5 in left lower extremity, no motor tone ASSESSMENT: 1. Recurrent falls with syncope, unclear etiology 2. Gait abnormality 3. Dementia, likely Alzheimer's, progressive 4. Acute bronchitis 5. CAD status post CABG 6. Hypertension Plan: Orthostatic vitals Check TSH, B12, vitamin D levels, Check also for adrenal insufficiency with plasma ACTH, cosyntropin stimulation test PT and OT to evaluate and treat Speech therapy for cognitive assessment General surgery for evaluation of lipoma Code Visit Inpatient E&M: 04956 Subs Hosp L2
[2019-04-16 15:17] LABS: Vitamin B12 520 pg/mL (211-911)
--- NOTE | 2019-04-16 16:17 | CON.PCM_ITS ---
Reason for Consult Date of Consultation: 04/16/19 Reason for Consultation: Right neck lipoma History of Present Illness: The patient is a 83 year old M admitted due to recurrent falls with history of dementia. Patient also had an incidental 7-8 cm lipoma on the right side of his neck per CT cervical. Patient is a poor historian. Patient states he is always had this denies any pain does not seem interested in having it removed. Patient is currently on aspirin and Plavix at home unsure the exact reason for the Plavix. Past Medical History Past Medical History (Chronic Problems): Chronic Problems Debility (Chronic) Seborrheic keratoses (Chronic) HTN (hypertension) (Chronic) CAD (coronary artery disease) (Chronic) Dementia (Chronic) H/O paroxysmal supraventricular tachycardia (Chronic) Diverticulosis (Chronic) Hypercholesterolemia (Chronic) Allergies No Known Allergies Allergy (Verified 04/15/19 17:19) Home Medications: Ambulatory Orders Medication Instructions Recorded Acetaminophen [Tylenol] 650 mg PO Q4H PRN PRN 10/23/17 Ascorbic Acid [Vitamin C] 500 mg PO DAILY 10/23/17 Aspirin 325 mg PO DAILY 10/23/17 Atenolol 50 mg PO DAILY 10/23/17 Atorvastatin Calcium 20 mg PO QHS 10/23/17 Donepezil HCl 10 mg PO QHS 10/23/17 Cholecalciferol (Vitamin D3) 2,000 unit PO DAILY 08/28/18 [Vitamin D3] Vit C/E/Zn/Coppr/Lutein/Zeaxan 1 each PO BID 08/28/18 [Preservision Areds 2 Softgel] Amlodipine Besylate [Norvasc] 5 mg PO DAILY 01/17/19 Citalopram Hydrobromide 10 mg PO DAILY 01/17/19 [Citalopram HBr] Clopidogrel Bisulfate [Clopidogrel] 75 mg PO DAILY 01/17/19 Omeprazole 20 mg PO DAILY 01/17/19 Guaifenesin [Robitussin] 10 ml PO Q4H PRN PRN 04/15/19 Isosorbide Mononitrate [Imdur] 60 mg PO BID 04/15/19 Surgical History: Surgical History (Last Reviewed 04/16/19 @ 06:33 by Josué Johnson MD) S/P CABG x 4 Z95.1 Surgical History: coronary bypass surgery, - - 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 Lives: Long Term Smoking Status: Former smoker Alcohol: None - *Family History Maternal History Items: - - Unable to obtain history from patient because of severe dementia. Per son one of his siblings(son siblings) has diabetes. Paternal History Items: - - Unable to obtain history from patient because of severe dementia. Per son one of his siblings(son siblings) has diabetes. Review of Systems HEENT: Reports: Difficulty Hearing Cardiovascular: Denies: Chest Pain Gastrointestinal: Denies: Abdominal Pain Unable to obtain accurate/complete ROS d/t: Patient has dementia Patient Problems: Active and Suspected Problems Fall (Acute) - Physical Exam General: Cooperative, No apparent distress HEENT: - - About 7 x 6 cm subcutaneous mass on the right posterior neck, mobile, slightly firm, no signs of infection consistent with a lipoma as seen on CT Lungs: Normal air movement Cardiovascular: Regular rate Abdomen: Soft, Non Tender, Non-Distended Vital Signs Temp Pulse Resp BP Pulse Ox 98.2 F 63 16 125/55 H 94 04/16/19 15:00 04/16/19 16:04 04/16/19 15:00 04/16/19 16:04 04/16/19 15:00 Oxygen Delivery Method Room Air Weight: 182 lb 8.684 oz Body Mass Index (BMI) 28.5 Finger Stick Blood Glucose 82 Orthostatic Vital Signs Start: 04/16/19 16:04 Freq: q24h Status: Active Protocol: Activity Type Activity Date Activity User E-Sign Co-Sign Detail Recorded Client Recorded Date Recorded By Document 04/16/19 16:04 EEB [id number] 04/16/19 16:06 EEB 04/16/19 16:04 Orthostatic Vitals Standing -Blood Pressure (90/60-120/80) 111/51 L -Extremity Use Right Arm -Pulse Rate (60-100) 72 Sitting -Blood Pressure (90/60-120/80) 125/55 H -Extremity Use Right Arm -Pulse Rate (60-100) 69 Lying -Blood Pressure (90/60-120/80) 125/55 H -Extremity Use Right Arm -Pulse Rate (60-100) 63 Intake and Output for Last 24 Hours 04/14/19 04/15/19 04/16/19 23:59 23:59 23:59 Intake Total 735 / 735 360 / 360 Output Total 500 / 500 1350 / 1350 Balance 235 / 235 -990 / -990 Laboratory Tests Past 24 Hrs 04/15/19 04/15/19 04/15/19 17:25 17:25 18:16 WBC 6.3 RBC 4.63 Hgb 14.1 Hct 43.8 MCV 94.6 H MCH 30.5 MCHC 32.2 RDW Std Deviation 45.7 H RDW Coeff of Belle 13.0 Plt Count 156 MPV 9.3 Immature Gran % (Auto) 0.300 Neut % (Auto) 55.8 Lymph % (Auto) 25.6 [place] % (Auto) 13.2 H Eos % (Auto) 4.6 Baso % (Auto) 0.5 Absolute Neuts (auto) 3.5 Absolute Lymphs (auto) 1.61 Nucleated RBC % 0 Sodium 136 Potassium 4.0 Chloride 102 Carbon Dioxide 30.0 Anion Gap 4 L BUN 17 Creatinine 1.17 Estim Creat Clear Calc 43.94 Est GFR (MDRD) Af Amer 76 Est GFR (MDRD) Non-Af 63 BUN/Creatinine Ratio 14.5 Glucose 94 Calcium 8.9 Troponin I 0.015 Vitamin B12 Vit D 1,25-Dihydroxy Urine Color Yellow Urine Clarity Clear Urine pH 6.0 Ur Specific [place] 1.010 Urine Protein Negative Urine Glucose (UA) Normal Urine Ketones Negative Urine Occult Blood 10 H Urine Nitrite Negative Urine Bilirubin Negative Urine Urobilinogen Normal Ur Leukocyte Esterase Negative Urine RBC 0-5 SEEN Urine WBC 0 SEEN Ur Squamous Epith Cells 0 SEEN Urine Bacteria 0 SEEN Urine Mucus 0 SEEN 04/15/19 04/16/19 04/16/19 22:20 00:50 03:54 WBC RBC Hgb Hct MCV MCH MCHC RDW Std Deviation RDW Coeff of [place] Plt Count MPV Immature Gran % (Auto) Neut % (Auto) Lymph % (Auto) [place] % (Auto) Eos % (Auto) Baso % (Auto) Absolute Neuts (auto) Absolute Lymphs (auto) Nucleated RBC % Sodium Potassium Chloride Carbon Dioxide Anion Gap BUN Creatinine Estim Creat Clear Calc Est GFR (MDRD) Af Amer Est GFR (MDRD) Non-Af BUN/Creatinine Ratio Glucose Calcium Troponin I 0.017 0.021 0.018 Vitamin B12 Vit D 1,25-Dihydroxy Urine Color Urine Clarity Urine pH Ur Specific [place] Urine Protein Urine Glucose (UA) Urine Ketones Urine Occult Blood Urine Nitrite Urine Bilirubin Urine Urobilinogen Ur Leukocyte Esterase Urine RBC Urine WBC Ur Squamous Epith Cells Urine Bacteria Urine Mucus 04/16/19 04/16/19 14:25 14:25 WBC RBC Hgb Hct MCV MCH MCHC RDW Std Deviation RDW Coeff of [place] Plt Count MPV Immature Gran % (Auto) Neut % (Auto) Lymph % (Auto) [place] % (Auto) Eos % (Auto) Baso % (Auto) Absolute Neuts (auto) Absolute Lymphs (auto) Nucleated RBC % Sodium Potassium Chloride Carbon Dioxide Anion Gap BUN Creatinine Estim Creat Clear Calc Est GFR (MDRD) Af Amer Est GFR (MDRD) Non-Af BUN/Creatinine Ratio Glucose Calcium Troponin I Vitamin B12 520 Vit D 1,25-Dihydroxy Pending Urine Color Urine Clarity Urine pH Ur Specific [place] Urine Protein Urine Glucose (UA) Urine Ketones Urine Occult Blood Urine Nitrite Urine Bilirubin Urine Urobilinogen Ur Leukocyte Esterase Urine RBC Urine WBC Ur Squamous Epith Cells Urine Bacteria Urine Mucus Assessment/Plan All Active Problems Fall (Acute) Chest pain (Acute) 83-year-old male with right neck lipoma 1. Patient can follow-up in office to discuss possible excision. Unsure why patient is on Plavix or if this has anything to do with his recurrent falls and he needs to stay on this. Also concerned if patient may pick at wound as this is consistent with a lipoma on imaging may not have to be removed. Did discuss with Dr. Lyudmila Leone M.D. Pager: [phone] [facility] [address] [place] [address], Out[facility] [place], [address] [place] [id number] Office: [phone] Code Visit Inpatient E&M: [id number] Init Hosp L2
[2019-04-16] MEDS: Atorvastatin Calcium 20 MG Tablet PO (21:08)
[2019-04-16] MEDS: Donepezil HCl 10 MG Tablet PO (21:08)
[2019-04-17] VITALS (8 sets, daily range): BP systolic 113–140; BP diastolic 54–67; PULSE 58–71; RESP 16–18; TEMP 36.9–37.1; O2SAT 94–95
[2019-04-17] MEDS: Cosyntropin 0.25 MG Vial IV (06:28)
[2019-04-17 06:53] LABS: Thyroid Stim Hormone (TSH) 1.13 uIU/mL (0.358-3.74)
[2019-04-17] MEDS: Aspirin 81 MG TAB.CHEW PO (08:03)
[2019-04-17] MEDS: Multivitamin (Healthy Eyes) Capsule 1 CAP PO ×2 (08:03→17:09)
[2019-04-17] MEDS: 0.9% Normal Saline 1,000 ML 75 ML IV (08:22)
[2019-04-17] MEDS: Mupirocin Ointment 22gm Tube 1 APPLIC TOPICAL ×2 (09:20→21:10)
[2019-04-17] MEDS: Citalopram 10 MG Tablet PO (09:21)
[2019-04-17] MEDS: guaiFENesin 1,200 MG Tablet 1200 MG PO ×2 (09:21→21:11)
[2019-04-17] MEDS: Isosorbide Mononitrate 60 MG Tablet PO ×2 (09:21→21:10)
[2019-04-17] MEDS: amLODIPine 5 MG Tablet PO (09:21)
[2019-04-17] MEDS: Atenolol 50 MG Tablet PO (09:21)
[2019-04-17] MEDS: Pantoprazole Sodium 20 MG Tablet PO (09:21)
[2019-04-17] MEDS: Azithromycin 250 MG Tablet 500 MG PO (09:21)
--- NOTE | 2019-04-17 11:43 | CASEMGMT ---
LW/POA forms not on file. left message with Gloria at [facility] to fax over LW/POA forms if they have them on file. SUZANNE Jhaveri
--- NOTE | 2019-04-17 13:28 | CASEMGMT ---
PRASAD faxed all necessary information to [facility] to obtain insurance authorization for him to return to [facility]. PRASAD also faxed information to [facility]. Green sheet on chart with instructions for d/c. Await to hear back from [facility]. Starr MISHRA MSW
--- NOTE | 2019-04-17 14:35 | CASEMGMT ---
PRASAD spoke with Enid at [facility]. She told SW that since patient is observation status we do not need another pre-cert. She said when he gets back to [facility] and they do his therapy evaluations they just need to send those in to insurance. PRASAD called [facility] and left a message for admissions letting them know this information. Plan: d/c back to [facility] under skilled level of care. Green sheet on chart. Starr MISHRA MSW
--- NOTE | 2019-04-17 15:46 | CASEMGMT ---
Addendum entered by Nadia Chapa 04/17/19 16:25: Pt's son called this RN CM back and after explanation of MCMILLAN form, son gave verbal permission for MCMILLAN form to be signed via phone at this time. Pt's son voices no further questions/concerns/needs at this time. MCMILLAN form to chart and copy to pt's room at this time. Perlita HARRIS CM Original Note: Per Axel HARRIS, pt's son has not been here at all today and pt is confused at all times. This RN CM to room with MCMILLAN form at this time and son is not at bedside, pt is pleasant but confused and unable to sign MCMILLAN at this time. Call to son without success at this time. RN CM will have to attempt again tomorrow. Perlita HARRIS CM
--- NOTE | 2019-04-17 16:34 | PN_ITS ---
<Ismael Campo - Last Filed: 04/17/19 16:34> Patient Problems: Active and Suspected Problems Fall (Acute) Subjective: Lethargic. No complaints. Rousable. Very hard of hearing. No SOB. Productive cough continues. No f/c. His hx is unreliable however, he has very little short term memory. - Physical Exam General: Alert, Cooperative, Lethargic HEENT: Atraumatic, PERRLA, EOMI, Normocephalic Neck: Supple, No JVD, Negative Carotid Bruits Lungs: Clear to auscultation, Normal air movement Cardiovascular: Regular rate, No murmurs Abdomen: Bowel Sounds Present, Soft, Non Tender Extremities: No edema, Capillary Refill Less than 3 Seconds Skin: No rashes, No breakdown Musculoskeletal: No Tenderness to Palpation of Joints or Extremities Neurological: Cranial nerves II-XII grossly intact Psych/Mental Status: Normal Affect, Appropriate, Alert and oriented to time, place, person, mood and affect Vital Signs Temp Pulse Resp BP Pulse Ox 98.6 F 59 L 16 113/54 L 94 04/17/19 15:00 04/17/19 15:00 04/17/19 15:00 04/17/19 15:00 04/17/19 15:00 Oxygen Delivery Method Room Air Weight: 182 lb 8.684 oz Body Mass Index (BMI) 28.5 Finger Stick Blood Glucose 82 Orthostatic Vital Signs Start: 04/16/19 16:04 Freq: q24h Status: Active Protocol: Activity Type Activity Date Activity User E-Sign Co-Sign Detail Recorded Client Recorded Date Recorded By Document 04/16/19 16:04 EEB [id number] 04/16/19 16:06 EEB 04/16/19 16:04 Orthostatic Vitals Standing -Blood Pressure (90/60-120/80) 111/51 L -Extremity Use Right Arm -Pulse Rate (60-100) 72 Sitting -Blood Pressure (90/60-120/80) 125/55 H -Extremity Use Right Arm -Pulse Rate (60-100) 69 Lying -Blood Pressure (90/60-120/80) 125/55 H -Extremity Use Right Arm -Pulse Rate (60-100) 63 Intake and Output for Last 24 Hours 04/15/19 04/16/19 04/17/19 23:59 23:59 23:59 Intake Total 735 / 735 1000 / 1000 823.75 / 823.75 Output Total 500 / 500 1850 / 1850 550 / 550 Balance 235 / 235 -850 / -850 273.75 / 273.75 Laboratory Tests Past 24 Hrs 04/17/19 04/17/19 04/17/19 06:00 06:00 06:00 TSH 1.13 Cortisol 8.70 ACTH Pending 04/17/19 04/17/19 07:03 07:36 TSH Cortisol 29.80 H 41.50 H ACTH Medical Necessity - Tobacco Use Smoking Status: Former smoker Assessment/Plan All Active Problems Fall (Acute) Chest pain (Acute) 1. Debility with recurrent falls - PTOT, pt noncompliant with activity restrictions due to dementia. He needs to be placed in a dementia unit with 24 hour supervision. Check Vit D and B12. CT brain and C spine negative. Shoulder Xray neg. Vt D pending. B12 negative. cortisol response to stim test was good. ACTH baseline is still pending. Orthos borderline per pulse. 2. Acute bronchitis - continue azithromycin. No fever/leukocytosis. Passed speech eval. Continue current diet and abx. 3. Alzheimers - progressively worsening, I suspect this is the primary reason for his ongoing problems. He has had this for ten years. Continue aricept. Celexa is appropriate to continue. Speech eval. 4. CAD, prior CABG - asa/statin/atenolol/imdur 5. HTN - stable. 6. Lipoma - per gen surgery no indication for removal at this time, and he would be a poor candidate for excision given his likeliness of not being able to care for the wound. May follow up as an outpatient. DVT ppx: SCDs DC Planning: SNF - needs higher level of care than prior, has failed going to SNF twice so far. This patient was seen by Ismael Campo PA-C under the supervision of Doctor Coreas. <Yumiko Coreas - Last Filed: 04/17/19 17:04> - Physical Exam Vital Signs Temp Pulse Resp BP Pulse Ox 98.6 F 59 L 16 113/54 L 94 04/17/19 15:00 04/17/19 15:00 04/17/19 15:00 04/17/19 15:00 04/17/19 15:00 Oxygen Delivery Method Room Air Weight: 82.8 kg Body Mass Index (BMI) 28.5 Finger Stick Blood Glucose 82 Orthostatic Vital Signs Start: 04/16/19 16:04 Freq: q24h Status: Active Protocol: Activity Type Activity Date Activity User E-Sign Co-Sign Detail Recorded Client Recorded Date Recorded By Document 04/16/19 16:04 EEB [id number] 04/16/19 16:06 EEB 04/16/19 16:04 Orthostatic Vitals Standing -Blood Pressure (90/60-120/80) 111/51 L -Extremity Use Right Arm -Pulse Rate (60-100) 72 Sitting -Blood Pressure (90/60-120/80) 125/55 H -Extremity Use Right Arm -Pulse Rate (60-100) 69 Lying -Blood Pressure (90/60-120/80) 125/55 H -Extremity Use Right Arm -Pulse Rate (60-100) 63 Intake and Output for Last 24 Hours 04/15/19 04/16/19 04/17/19 23:59 23:59 23:59 Intake Total 735 / 735 1000 / 1000 823.75 / 823.75 Output Total 500 / 500 1850 / 1850 550 / 550 Balance 235 / 235 -850 / -850 273.75 / 273.75 Laboratory Tests Past 24 Hrs 04/17/19 04/17/19 04/17/19 06:00 06:00 06:00 TSH 1.13 Cortisol 8.70 ACTH Pending 04/17/19 04/17/19 07:03 07:36 TSH Cortisol 29.80 H 41.50 H ACTH Assessment/Plan This patient was seen in conjunction with CHAITANYA Cavanaugh. I have independently interviewed and examined the patient and reviewed pertinent historical, labora tory, and other data. Please refer to CHAITANYA Cavanaugh note for his patient's presentation, findings, and recommendations. I have reviewed and his note and concur with his documentation Patient was seen and examined. Orthostatic vitals were mildly positive. No other acute events overnight. 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 Recurrent falls with syncope, unclear etiology 2. Gait abnormality 3. Dementia, likely Alzheimer's, progressive 4. Acute bronchitis 5. CAD status post CABG 6. Hypertension Plan: Continue to follow-up on PT/OT/ST evaluations Recheck orthostatic vitals in a.m. [facility] a[facility] Code Visit Inpatient E&M: [id number] Subs Hosp L2
[2019-04-17] MEDS: Atorvastatin Calcium 20 MG Tablet PO (21:10)
[2019-04-17] MEDS: Donepezil HCl 10 MG Tablet PO (21:10)
[2019-04-18] VITALS (8 sets, daily range): BP systolic 121–152; BP diastolic 60–73; PULSE 60–68; RESP 16–18; TEMP 36.5–37; O2SAT 93–95
[2019-04-18] MEDS: Acetaminophen 325 MG Tablet 650 MG PO (07:52)
[2019-04-18] MEDS: Aspirin 81 MG TAB.CHEW PO (07:52)
[2019-04-18] MEDS: Multivitamin (Healthy Eyes) Capsule 1 CAP PO (07:52)
[2019-04-18] MEDS: Pantoprazole Sodium 20 MG Tablet PO (07:52)
[2019-04-18] MEDS: Ondansetron 4 MG/2 ML Vial IV (08:02)
[2019-04-18] MEDS: 0.9% NaCl Peripheral Flush Adult/Peds IV (08:03)
[2019-04-18] MEDS: guaiFENesin 1,200 MG Tablet 1200 MG PO (10:18)
[2019-04-18] MEDS: Isosorbide Mononitrate 60 MG Tablet PO (10:18)
[2019-04-18] MEDS: amLODIPine 5 MG Tablet PO (10:19)
[2019-04-18] MEDS: Atenolol 50 MG Tablet PO (10:19)
[2019-04-18] MEDS: Azithromycin 250 MG Tablet 500 MG PO (10:19)
[2019-04-18] MEDS: Citalopram 10 MG Tablet PO (10:19)
[2019-04-18] MEDS: Mupirocin Ointment 22gm Tube 1 APPLIC TOPICAL (10:22)
--- NOTE | 2019-04-18 11:03 | TREXTCA.CO_ITS ---
- Diet 04/15/19 23:19 Diet: Regular Diet Is pt able to select menu?: No - Routine Orders/Code Status Suppository Type: Dulcolax 10mg Suppository Frequency: Daily PRN Routine Lab Work: CBC - 1 week, BMP - 1 week Code Status: DNRCC - Therapies Physical Therapy: Eval and Treat Occupational Therapy: Eval and Treat Speech Therapy: Eval and Treat - Problem/Diagnosis (1) Fall Status: Acute Current Visit: Yes (2) Acute bronchitis Status: Acute Current Visit: Yes (3) Lipoma Status: Chronic Current Visit: Yes (4) CAD (coronary artery disease) Status: Chronic Current Visit: No (5) Debility Status: Chronic Current Visit: No (6) Dementia Status: Chronic Current Visit: No (7) H/O paroxysmal supraventricular tachycardia Status: Chronic Current Visit: No (8) HTN (hypertension) Status: Chronic Current Visit: No (9) Hypercholesterolemia Status: Chronic Current Visit: No - Allergies/Procedures Done in Hospital Allergies/Adverse Reactions: Allergies No Known Allergies Allergy (Verified 04/15/19 17:19) Procedures: None - Type of Care/Length of Stay Estimated LOS: Convalescent Care Less Than 30 days Type of Care Needed: Skilled Rehab Potential: Fair Prognosis: Fair - Additional Orders/Day of Discharge Day of Discharge: 04/18/19 - Dietary and Speech Recommendations Speech Linguistic Eval Summary: Pt agreeable to tx. Pt son present. Pt given Jerry Cognitive Assessment (MOCA) Screening Version 7.[address] Coreas request. Pt scored a 13/30: Visuospatial/executive 2/5, Naming 3/3, Attention 4/6, Language 0/3, Abstraction 2/2, Delayed recall 0/5 (did get 4/5 with categorical cue), Orientation 1/6. Despite score, positive findings were d iscussed with son such as self-correction, naming, repeating digits, subtraction and compare/contrast. Pt son to request neuro consult. Pt to be seen and family educated about cognitive decline. - Follow Up Care Primary Care Physician: Boyd Collier MD [Primary Care Provider] - Please follow up with your Primary Care Physician in: 1-2 weeks Please Follow Up With: Melania Leone MD When: as needed
--- NOTE | 2019-04-18 13:27 | NURSING ---
1315 assisted off of bsc to wipe felt dizzy assisted to sit on bed bp 122/62 p62 dizziness resolved quickly stood up rechecked bp 112/66 p 67 denies dizziness at that time notified
--- NOTE | 2019-04-18 13:57 | NURSING ---
Carol Waldron was given report at [facility]
--- NOTE | 2019-04-18 14:14 | PCM.DC.SUM ---
<Ismael Campo - Last Filed: 04/18/19 14:14> Discharge Date and Diagnosis - Problem List Patient Problems: Active and Suspected Problems Fall (Acute) Acute bronchitis (Acute) Date of Admission: 04/15/19 Date of Discharge: 04/18/19 - Primary Discharge Diagnosis Active and Suspected Problems Physical and cognitive decline 2/2 dementia Acute bronchitis CAD prior CABG HTN Lipoma, neck - Secondary Discharge Diagnosis Chronic Problems Debility (Chronic) Lipoma (Chronic) Seborrheic keratoses (Chronic) HTN (hypertension) (Chronic) CAD (coronary artery disease) (Chronic) Dementia (Chronic) H/O paroxysmal supraventricular tachycardia (Chronic) Diverticulosis (Chronic) Hypercholesterolemia (Chronic) Hospital Course and Treatment Imaging Results: CT/Brain/Head without Contrast IMPRESSION: No acute intracranial abnormality. Chronic ischemic and atrophic changes. CT/Spine Cervical without Contras IMPRESSION: There is no definite acute fracture/dislocation. Degenerative changes. RAD/Shoulder min 2 Views IMPRESSION: No fracture or dislocation. Mild degenerative changes at the acromioclavicular joint. RAD/Chest 1 View (Portable) IMPRESSION: Retrocardiac atelectasis and/or small infiltrate. Mild cardiomegaly. Consults: General Surgery - [facility] Operations: None Procedures: None Summary of Care Provided: Hospital course: The patient is a 83 year old M with severe dementia diagnosed in 2008, also with a hx of CAD with prior CABG, mild pulmonary hypertension, and HTN who presented to the ER with c/o falling. This patient has had ongoing issues with this. He was admitted to this hospital in January 2019 after having a fall. He had an echo, MRI brain, CTA head and neck and no acute process was found. He was sent to senior living after this. His son was very upset that no acute process was identified here and did not want his father returning here for care. After the patient was at senior living, he had more falls, and was sent to [facility] where he was admitted and then sent home with no acute process found. He was back at the SNF for less than a day. Soon after returning, an Aid instructed him to stay in bed, however as soon as he left the room the patient attempted to get out of bed and fell and struck his head. The son reports that the patient has essentially no short term memory. He was sent back to our ER. CT brain and C spine were negative. He did have a productive cough, however no fever or leukocytosis and negative CXR. He was admitted for debility and also started on azithromycin for suspected acute bronchitis (he completed a course of this while here). He was seen by PT, OT, and ST. His labs were unremarkable. No events on tele. Neg trop x3. B12 normal, TSH normal, VitD pending. Cortisol normal and with good response to cosyntropin stim test. baseline ACTH is pending. UA was negative. Aside from mild bronchitis, no acute issues could be identified. The patient has severe memory impairment. We felt that his problems were primarily attributable to his dementia. PT and OT recommended SNF. ST did not report aspiration. He was discharged back to SNF in stable condition. He will need close supervision as he will continue to be a fall risk and will attempt to get out of bed without assistance. He will need follow up with his PCP in 1-2 weeks. While he was here he was noted to have a large lipoma on his neck. General surgery was consulted, who looked at his CT and felt it was a lipoma. They did not feel any intervention was warranted at this time. He may follow up with Dr. Leone as an outpatient for this as needed. This patient was seen by Ismael Campo PA-C under the supervision of Doctor Coreas. [] Patient Problems: Active and Suspected Problems Fall (Acute) Acute bronchitis (Acute) - Physical Exam General: Alert, Cooperative, Confused HEENT: Atraumatic, PERRLA, EOMI, Normocephalic Neck: Supple, No JVD, Negative Carotid Bruits Lungs: Clear to auscultation, Normal air movement Cardiovascular: Regular rate, No murmurs Abdomen: Bowel Sounds Present, Soft, Non Tender Extremities: No edema, Capillary Refill Less than 3 Seconds Skin: No rashes, No breakdown Musculoskeletal: No Tenderness to Palpation of Joints or Extremities Neurological: Cranial nerves II-XII grossly intact Psych/Mental Status: Normal Affect, Appropriate Vital Signs Temp Pulse Resp BP Pulse Ox 97.7 F L 64 16 129/62 H 95 04/18/19 13:55 04/18/19 13:55 04/18/19 13:55 04/18/19 13:55 04/18/19 13:55 Oxygen Delivery Method Room Air Weight: 182 lb 8.684 oz Body Mass Index (BMI) 28.5 Finger Stick Blood Glucose 82 Orthostatic Vital Signs Start: 04/16/19 16:04 Freq: 0700 Status: Active Protocol: Activity Type Activity Date Activity User E-Sign Co-Sign Detail Recorded Client Recorded Date Recorded By Document 04/18/19 05:35 [facility] [id number] 04/18/19 05:39 [facility] 04/18/19 05:35 Orthostatic Vitals Standing -Blood Pressure (90/60-120/80) 139/68 H -Pulse Rate (60-100) 64 Sitting -Blood Pressure (90/60-120/80) 152/70 H -Pulse Rate (60-100) 65 Lying -Blood Pressure (90/60-120/80) 131/68 H -Extremity Use Left Arm -Pulse Rate (60-100) 64 Intake and Output for Last 24 Hours 04/16/19 04/17/19 04/18/19 23:59 23:59 23:59 Intake Total 1000 / 1000 1450.00 / 1450.00 530 / 530 Output Total 1850 / 1850 800 / 800 1250 / 1250 Balance -850 / -850 650.00 / 650.00 -720 / -720 Discharge Diet: No Restrictions Discharge Activity: Return to Normal Activity Home Medications: Medications to take at Discharge Acetaminophen [Tylenol] 650 mg PO Q4H PRN PRN 10/23/17 Ascorbic Acid [Vitamin C] 500 mg PO DAILY 10/23/17 Aspirin 325 mg PO DAILY 10/23/17 Atenolol 50 mg PO DAILY 10/23/17 Atorvastatin Calcium 20 mg PO QHS 10/23/17 Donepezil HCl 10 mg PO QHS 10/23/17 Cholecalciferol (Vitamin D3) [Vitamin D3] 2,000 unit PO DAILY 08/28/18 Vit C/E/Zn/Coppr/Lutein/Zeaxan [Preservision Areds 2 Softgel] 1 each PO BID 08/28/18 Amlodipine Besylate [Norvasc] 5 mg PO DAILY 01/17/19 Citalopram Hydrobromide [Citalopram HBr] 10 mg PO DAILY 01/17/19 Clopidogrel Bisulfate [Clopidogrel] 75 mg PO DAILY 01/17/19 Omeprazole 20 mg PO DAILY 01/17/19 Guaifenesin [Robitussin] 10 ml PO Q4H PRN PRN 04/15/19 Isosorbide Mononitrate [Imdur] 60 mg PO BID 04/15/19 Primary Care Physician: Boyd Collier MD [Primary Care Provider] - Please follow up with your Primary Care Physician in: 1-2 weeks Please Follow Up With: Melania Leone MD When: as needed Disposition: Long Term facility Minutes spent on discharge:: 35 Patient Condition:: Stable Medical Necessity - Tobacco Use Smoking Status: Former smoker Meaningful Use Info Meaningful Use Diagnoses (Choose all that apply): None applicable <Yumiko Coreas - Last Filed: 04/18/19 14:35> Discharge Date and Diagnosis - Primary Discharge Diagnosis Active and Suspected Problems Fall (Acute) Acute bronchitis (Acute) - Secondary Discharge Diagnosis Chronic Problems Debility (Chronic) Lipoma (Chronic) Seborrheic keratoses (Chronic) HTN (hypertension) (Chronic) CAD (coronary artery disease) (Chronic) Dementia (Chronic) H/O paroxysmal supraventricular tachycardia (Chronic) Diverticulosis (Chronic) Hypercholesterolemia (Chronic) Hospital Course and Treatment Summary of Care Provided: This patient was seen in conjunction with CHAITANYA Cavanaugh. I have independently interviewed and examined the patient and reviewed pertinent historical, laboratory, and other data. Please refer to CHAITANYA Cavanaugh note for his patient's presentation, findings, and recommendations. I have reviewed and his note and concur with his documentation. 83-year-old male with past medical history of dementia, CAD status post CABG, hypertension who was admitted to the hospital after a fall. Patient's initial work-up showed no acute abnormality. Patient's son was concerned about patient's recurrent falls. He was found to be mildly orthostatic and received IV fluids. Repeat orthostatic vitals was negative. Patient was also evaluated for adrenal insufficiency and was found to be negative. Patient was seen by PT and OT and felt to be unsteady in his gait. He was discharged to subacute skilled care. I discussed carefully with the patient's son about the discharge plan including the need for future increase need for continued skilled care to prevent falls. Patient was recommended to use a walker instead of a cane to ambulate. On the day of discharge, patient was seen and examined. Denied any new complaints. 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: NF 2 through 12 intact, power is 5/5 in upper extremities, 4/5 in right lower extremity and 5/5 in left lower extremity, no motor tone - Physical Exam Vital Signs Temp Pulse Resp BP Pulse Ox 97.7 F L 64 16 129/62 H 95 04/18/19 13:55 04/18/19 13:55 04/18/19 13:55 04/18/19 13:55 04/18/19 13:55 Oxygen Delivery Method Room Air Weight: 82.8 kg Body Mass Index (BMI) 28.5 Finger Stick Blood Glucose 82 Orthostatic Vital Signs Start: 04/16/19 16:04 Freq: 0700 Status: Active Protocol: Activity Type Activity Date Activity User E-Sign Co-Sign Detail Recorded Client Recorded Date Recorded By Document 04/18/19 05:35 [facility] [id number] 04/18/19 05:39 [facility] 04/18/19 05:35 Orthostatic Vitals Standing -Blood Pressure (90/60-120/80) 139/68 H -Pulse Rate (60-100) 64 Sitting -Blood Pressure (90/60-120/80) 152/70 H -Pulse Rate (60-100) 65 Lying -Blood Pressure (90/60-120/80) 131/68 H -Extremity Use Left Arm -Pulse Rate (60-100) 64 Intake and Output for Last 24 Hours 04/16/19 04/17/19 04/18/19 23:59 23:59 23:59 Intake Total 1000 / 1000 1450.00 / 1450.00 530 / 530 Output Total 1850 / 1850 800 / 800 1250 / 1250 Balance -850 / -850 650.00 / 650.00 -720 / -720 Code Visit Inpatient E&M: [id number] Disch Hosp
[2019-04-21 08:44] LABS: Adrenocorticotropic Hormone 12.4 pg/mL (7.2-63.3)
== END 2019-04-18 11:06 | disposition skilled nursing facility (03) ==
LOC: ED 17:56 → PCU 20:02
PROVIDERS: Physician Assistant; Admitting Provider Hospitalist; Emergency Provider Emergency Medicine; Family Provider Family Medicine; PCP Family Medicine; Referring Provider Hospitalist; Visit Provider Internal Medicine
DX: R55 Syncope and collapse (principal); S00.83XA Contusion of other part of head, initial encounter; E78.5 Hyperlipidemia, unspecified; I10 Essential (primary) hypertension; J18.9 Pneumonia, unspecified organism; R29.6 Repeated falls; J20.9 Acute bronchitis, unspecified; G30.9 Alzheimer's disease, unspecified; F02.80 Dementia in other diseases classified elsewhere, unspecified severity, without behavioral disturbance, psychotic disturbance, mood disturbance, and anxiety; D17.0 Benign lipomatous neoplasm of skin and subcutaneous tissue of head, face and neck; I25.10 Atherosclerotic heart disease of native coronary artery without angina pectoris; I27.20 Pulmonary hypertension, unspecified; Z95.1 Presence of aortocoronary bypass graft; Z85.46 Personal history of malignant neoplasm of prostate; Y92.129 Unspecified place in nursing home as the place of occurrence of the external cause; W19.XXXA Unspecified fall, initial encounter; Y93.89 Activity, other specified; Z79.899 Other long term (current) drug therapy; Z79.82 Long term (current) use of aspirin; Z79.02 Long term (current) use of antithrombotics/antiplatelets; Z87.891 Personal history of nicotine dependence; Z91.19 Patient's noncompliance with other medical treatment and regimen; R05 Cough
CPT/HCPCS: 36415; 70450; 71045; 72125; 73030; 80048; 81001; 82024; 82533; 82607; 82652; 84443; 84484; 85025; 92523; 93005; 96361; 96365; 96366; 96367; 96375; 96376; 97110; 97116; 97162; 97166; 97530; 97535; 99218; 99285; J7030; J7050; A4216; G0378; J0834; J2405

== ENCOUNTER 2019-04-20 01:59 | Emergency (ER) | payer MEDICARE, SELFPAY ==
[2019-04-15 19:48] VITALS: BMI 28.5
[2019-04-20 02:00] VITALS: BP 151/82; PULSE 55; RESP 16; TEMP 36.8; O2SAT 98; BMI 29.8
[2019-04-20 02:10] VITALS: PULSE 57
--- NOTE | 2019-04-20 03:06 | RAD_ITS ---
HISTORY: Chest Pain, CONFUSION EXAMINATION/TECHNIQUE: XR Chest 1 View: Portable COMPARISON: 04/15/2019 FINDINGS: No significant change. Mild cardiomegaly. Left basilar chronic atelectasis, infiltrate, or scarring. Right basilar hypoventilation, unchanged. No vascular congestion or new infiltrate. No pneumothorax. Median sternotomy and postsurgical change related to CABG. RAD/Chest 1 View (Portable) IMPRESSION: 1. Left basilar chronic infiltrate, atelectasis, or scarring without significant change. 2. Mild cardiomegaly. Previous CABG. at 0338 Reported and signed by: Bryson Gomez MD Electronically Signed: Bryson Gomez, at 3:37 EDT Tel , Service support ,
[2019-04-20 03:11] LABS: Absolute Lymphocyte Count 1.72 X10^3/uL (0.83-4.51); Basophil# 0.04 X10^3/uL; Basophil% 0.5 % (0-1); Eosinophil# 0.22 X10^3/uL; Eosinophils% 2.9 % (0-5); Hematocrit 40.4 % (40-54); Hemoglobin 12.9 g/dL (13.0-16.5); Lymphocyte # 1.72 X10^3/ul (4.0); Lymphocyte % 23.1 % (19-41); Mean Corp Hgb Conc 31.9 g/dL (32-36); Mean Corpuscular Hgb 29.8 pg (27.0-32.0); Mean Corpuscular Volume 93.3 fL (80-94); Mean Platelet Vol. 9.2 fl (6.2-12.0); Monocyte% 6.7 % (0-10); NRBC Flagged by Analyzer 0 % (0-5); Neutrophil # 4.96 X10^3/uL (2.7-7.7); Neutrophil % 66.5 % (47-70); Platelet Count 182 K/mm3 (150-450); RBC Distribution Width CV 12.4 % (11.6-14.6); RBC Distribution Width SD 42.9 fl (35.1-43.9); Red Blood Count 4.33 M/mm3 (4.6-6.2); White Blood Count 7.5 K/mm3 (4.4-11.0)
[2019-04-20 03:18] VITALS: O2SAT 97
--- NOTE | 2019-04-20 03:28 | ED.DCSUM_ITS ---
- ER Visit Summary Date of Service: 04/20/19 Chief Complaint: Chest pain History of Present Illness: The patient is a 83 M who presents with chest pain that began approximately 2 hours prior to arrival. Patient states his pain is resolved now. Patient describes the pain is dull. Patient states the pain is over the left chest area. Patient states nothing made it better or worse. Patient states he did break it into a sweat. Patient denies any nausea or vomiting. Patient denies any shortness of breath. Patient does admit to some lightheadedness. Patient denies any cough or fever. Physical Examination: Vital signs are stable. Patient is afebrile. Patient is in no acute distress. Oral mucosa is pink and moist. Neck is supple. Trachea is midline. There is no JVD noted. Heart was regular rate and rhythm. Lungs are clear and equal bilateral. Abdomen is soft. Bowel sounds are normal. There is no tenderness. There is no guarding noted. Skin is warm dry. Cranial nerves II through XII are intact. There are no focal motor or sensory deficits noted. The remaining physical exam is within normal limits. Test Results: EKG showed sinus bradycardia with a rate of 59. There are no acute ST or T wave changes noted. This was unchanged compared to previous EKG dated 08/28/2018. CBC, basic metabolic profile, and troponin were obtained and were all essentially within normal limits. Portable chest x-ray shows a left basilar chronic infiltrate, atelectasis, or scarring without any significant change. This was interpreted by the radiologist and reviewed by myself. Emergency Department Course and Treatment: Patient was given a dose of aspirin here. Patient was sleeping on reevaluation. Patient was advised of his results. Patient was instructed to follow-up with his primary care physician in 5 to 7 days. Patient understood and was agreeable with the plan. All questions were answered. Disposition: Discharge home Impression: Chest pain of uncertain etiology This note was generated with [employer] dictation software. 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
[2019-04-20 03:42] LABS: Anion Gap 9 (5-15); BUN 24 mg/dL (7-18); Calcium,Total 8.1 mg/dL (8.5-10.1); Chloride 105 mmol/L (98-107); Creatinine, Serum 0.92 mg/dL (0.70-1.30); EST Glomerular Filtration Rate 83 mL/min (>60); Est Glom Filt Rate - Afr Amer 101 mL/min (>60); Estimated Creatinine Clearance 55.88 ml/min; Glucose 110 mg/dL (74-106); Potassium 4.6 mmol/L (3.5-5.1); Sodium Level 143 mmol/L (136-145)
[2019-04-20 04:32] VITALS: BP 131/72; PULSE 56; RESP 15; TEMP 36.4; O2SAT 99
== END 2019-04-20 05:30 ==
PROVIDERS: Emergency Provider Emergency Medicine; Family Provider Family Medicine; PCP Family Medicine
DX: R07.9 Chest pain, unspecified (principal); R61 Generalized hyperhidrosis; R42 Dizziness and giddiness; F03.90 Unspecified dementia, unspecified severity, without behavioral disturbance, psychotic disturbance, mood disturbance, and anxiety; I25.10 Atherosclerotic heart disease of native coronary artery without angina pectoris; I10 Essential (primary) hypertension; E78.00 Pure hypercholesterolemia, unspecified; I47.1 Supraventricular tachycardia; Z86.73 Personal history of transient ischemic attack (TIA), and cerebral infarction without residual deficits; Z95.1 Presence of aortocoronary bypass graft; Z79.82 Long term (current) use of aspirin; Z79.899 Other long term (current) drug therapy
CPT/HCPCS: 71045; 80048; 84484; 85025; 93005; 99285; A4216